=== PATIENT | female | born 1960 | race Caucasian/White ===

== ENCOUNTER 2023-07-07 13:24 | Emergency (ER) | payer MEDICARE, SELFPAY ==
--- NOTE | ~2023-07-07 | XR_ITS ---
EXAMINATION: XR abdomen obstructive series DATE: 07/07/2023 14:01 INDICATION: Constipation TECHNIQUE: Upright and supine views of the abdomen were obtained. COMPARISON: None. FINDINGS: A moderate volume of colonic stool is present. The bowel gas pattern is normal. There is a calcified granuloma of the right lung base. IMPRESSION: 1. Constipation. Reviewed, dictated and finalized at location L. IMPRESSION: 1. Constipation.
--- NOTE | ~2023-07-07 | CT_ITS ---
EXAMINATION: CT abdomen pelvis wo con DATE: 07/07/2023 15:19 INDICATION: ALL OVER ABDOMEN PAIN/CONSTIPATION TECHNIQUE: Computed tomography (CT) of the abdomen and pelvis was performed without intravenous contr ast. Automated exposure control and iterative reconstruction technique were employed. The dose-length product was 369.59 mGy-cm. COMPARISON: X-ray abdomen, same date. FINDINGS: Lower thorax: Calcified right lower lobe granuloma. Bilateral scar. Emphysematous change. Coronary ar ryan calcification. Moderate hiatal hernia. Liver: Normal. Biliary/Gallbladder: Gallbladder is normal. No bile duct dilation. Pancreas: No mass or duct dilation. Spleen: Granulomatous calcifications. Adrenals:Left adrenal adenoma. Kidneys: Punctate nonobstructing bilateral calculi. No hydronephrosis. No suspicious mass. GI tract: No small or large bowel dilation. Colonic diverticulosis. 5.9 x 6.2 x 6.0 cm collection adj acent to and in direct communication with the proximal sigmoid, containing gas and fecal material, wi th surrounding wall thickening and inflammatory change. Appendix not visualized. Mesentery/Peritoneum: No mass or free air. Trace free pelvic fluid. Retroperitoneum: No mass. Atherosclerotic abdominal aortic and/or arterial calcifications. Pelvis: Partially distended urinary bladder. Surgically absent uterus. Soft Tissues: Soft tissues and body wall unremarkable. Bones: No acute osseous finding. Right obturator ring fractures. 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 Trace free pelvic fl uid. No pneumoperitoneum. Recommend surgical consultation. Reviewed, dictated and finalized at location K. 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 Trace free pelvic fluid. No pneumoperitoneum. Recommend surgical consultation .
[2023-07-07 13:25] VITALS: BP 139/99; PULSE 87; RESP 20; TEMP 36.4; O2SAT 98
--- NOTE | 2023-07-07 13:28 | ECG_ITS ---
Measurements Intervals [place] Rate: 97 P: 83 AR: 126 QRS: 84 QRSD: 87 T: 78 QT: 331 QTc: 422 Interpretive Statements SINUS RHYTHM RSR' IN V1 OR V2, PROBABLY NORMAL VARIANT BASELINE ARTIFACT- I, III, AVR, AVL, AVF, V1-V6 NORMAL ECG NO PREVIOUS ECG AVAILABLE FOR COMPARISON Electronically Signed On 07-07-2023 14:10:50 CDT by Emile Dean D.O.
[2023-07-07 13:49] LABS: Basophils Absolute Auto 0.03 K/mm3 (0.00-0.10); Basophils Percent Auto 0.2 % (0.0-1.0); Eosinophils Absolute Auto 0.01 K/mm3 (0.02-0.50); Eosinophils Percent Auto 0.1 % (1.0-6.0); Hematocrit 40.7 % (35.0-49.0); Hemoglobin 13.5 g/dL (12.0-15.0); Immature Granulocyte Absolute 0.08 K/mm3 (0.00-0.00); Immature Granulocyte Percent A 0.5 % (0.0-0.0); Lymphocytes Absolute Auto 2.26 K/mm3 (1.10-4.50); Lymphocytes Percent Auto 14.4 % (18.0-42.0); Mean Corpuscular HGB Conc 33.2 g/dL (32.0-36.0); Mean Corpuscular Hemoglobin 31.6 pg (27.0-31.0); Mean Corpuscular Volume 95.3 fL (78.0-102.0); Mean Platelet Volume 9.8 fl (9.2-11.8); Monocytes Absolute Auto 1.84 K/mm3 (0.10-0.90); Monocytes Percent Auto 11.7 % (2.0-11.0); Neutrophils Absolute Auto 11.5 K/mm3 (1.7-7.2); Neutrophils Percent Auto 73.1 % (50.0-70.0); Platelet Count Result 273 K/mm3 (150-420); Red Blood Count 4.27 M/mm3 (4.20-5.40); Red Cell Distribution Width 13.1 % (11.6-14.4); White Blood Count 15.7 K/mm3 (4.8-10.8)
[2023-07-07 14:04] LABS: INR 1.1; Partial Thromboplastin Time 33.5 SEC (23.90-30.70); Prothrombin Time 11.5 Seconds (9.50-12.10)
[2023-07-07 14:08] LABS: Alanine Aminotransferase 47 U/L (14-59); Alkaline Phosphatase 149 U/L (46-116); Anion Gap 14 mmol/L (8-16); Aspartate Amino Transferase 23 U/L (15-37); Bilirubin,Total 0.9 mg/dL (0.00-1.00); Blood Urea Nitrogen 13 mg/dL (7-18); Calcium 9.5 mg/dL (8.5-10.1); Carbon Dioxide 22 mmol/L (21-32); Chloride 99 mmol/L (98-108); Estimated CRCL calculation 53 ml/min; Estimated Glomerular Filt Rate > 60; Glucose 153 mg/dL (70-99); Lactic Acid Reflex 1.8 mmol/L (0.4-2.0); Lipase 79 U/L (16-77); Osmolality Calculated 283 mOsm/kg (285-295); Potassium 3.7 mmol/L (3.5-5.1); Sodium 135 mmol/L (136-145); Total Protein 7.6 g/dL (6.4-8.2); Troponin I 4.4 ng/L (0.00-60.4)
--- NOTE | 2023-07-07 14:10 | ED.ABDPAIN ---
HPI - Abdominal Pain General Chief Complaint: Abdominal Pain Stated Complaint: abdominal pain Time Seen by Provider: 07/07/23 13:25 Source: patient Mode of arrival: ambulatory Limitations: no limitations History of Present Illness HPI narrative: patient is a 63-year-old female with left lower quadrant abdominal pain since the last 2 days. She has been constipated for 1 week. MD elicited complaint: abdominal pain Pertinent past history: constipation Onset (ago): week(s) (1) Pain Consistency: constant Location: LLQ Severity: moderate Pain scale (0-10): 6 Quality: sharp Radiation: none Migration to: no migration Exacerbating factors: nothing Relieving factors: nothing Associated symptoms: denies other symptoms Related Data Home Medications Medication Instructions Recorded Confirmed albuterol sulfate 90 mcg/actuation 2 puff inhalation BID 07/07/23 07/07/23 aerosol inhaler amlodipine 5 mg tablet 5 mg PO DAILY 07/07/23 07/07/23 clonazepam 0.5 mg tablet 0.5 mg PO BID 07/07/23 07/07/23 pravastatin 80 mg tablet 80 mg PO DAILY 07/07/23 07/07/23 trazodone 100 mg tablet 100 mg PO QHS 07/07/23 07/07/23 Allergies Allergy/AdvReac Type Severity Reaction Status Date / Time Sulfonamides Allergy Intermediate Rash Uncoded 07/07/23 13:49 Review of Systems Review of Systems: All systems reviewed & are unremarkable except as noted in HPI and below Constitutional: Constitutional: Reports no additional constitutional complaints Eyes: Eyes: Reports no additional eye complaints ENT: Reports system reviewed and no additional complaints, except as documented Cardiovascular: Cardiovascular: Reports no additional cardiovascular complaints Respiratory: Respiratory: Reports no additional respiratory complaints Gastrointestinal: Gastrointestinal: Reports no additional gastrointestinal complaints Genitourinary: Genitourinary: Reports no additional female genitourinary complaints Musculoskeletal: Musculoskeletal: Reports no additional musculoskeletal complaints Integumentary/Breasts: Skin/Breast: Reports system reviewed and no additional complaints, except as docu Neurologic: Reports system reviewed and no additional complaints, except as documented Psychiatric: Psychiatric: Reports no additional psychiatric complaints Endocrine: Endocrine: Reports no additional endocrine complaints Hematologic/Lymphatic: Hematologic/Lymphatic: Reports no additional hematologic/lymphatic complaints Allergic/Immunologic: Allergic/Immunologic: Reports no additional allergic/immunologic complaints [facility] Social History Social History Smoking status: Current every day smoker Exam Const: General: healthy appearing and alert; No no acute distress ( Pain associated discomfort) Nutritional Appearance: well nourished Orientation/consciousness: patient oriented x3 Limitations: no limitations HENMT: Head: normal to inspection Ears: external ears normal Face/Nose/Sinus: Normal external nose present Neck: Neck: normal visual inspection Chest: Chest palpation & inspection: normal inspection of the chest Resp: Effort & Inspection: normal respiratory effort Auscultation: clear to auscultation bilaterally Cardio: Rate: regular rate Rhythm: regular rhythm Heart sounds: no murmurs GI: Inspection: non-distended GI Palp: Yes Soft to palpation, Yes Tenderness to palpation present (GI) ( left lower quadrant), Yes Guarding due to palpation present (GI) and No Rigid due to palpation Auscultation: normal bowel sounds : General: Yes bladder normal to palpation Back/Spine/Pelvis: Back: no CVA tenderness Skin: General skin exam: normal color Rashes: no rashes Wounds: no wounds Neuro: General: patient oriented x3 Cranial nerves: Yes Nystagmus not present Speech: normal speech Gait exam (Neuro): Normal gait present Extrem: General: normal to inspection Psych: Mental Status: mental sta
[2023-07-07 14:30] VITALS: BP 132/71; PULSE 75; RESP 18; TEMP 36.3; O2SAT 97
[2023-07-07 16:00] VITALS: BP 132/78; PULSE 66; RESP 16; TEMP 36.6; O2SAT 99
[2023-07-07] MEDS: PIPERACILLN/TAZ 3.375GM/NS50ML 3.375 GM/50 ML BAG IVPB (16:36)
[2023-07-07 17:30] VITALS: BP 141/74; PULSE 79; RESP 18; TEMP 36.7; O2SAT 100
[2023-07-07 19:00] VITALS: BP 132/90; PULSE 88; RESP 20; TEMP 36.6; O2SAT 98
[2023-07-07] MEDS: MORPHINE SULFATE (*CRX) 2 MG/ML INJ IV PUSH (19:57)
[2023-07-07 20:20] VITALS: BP 130/90; PULSE 89; RESP 20; TEMP 36.8; O2SAT 98
== END 2023-07-07 20:20 | disposition home or self-care (01) ==
PROVIDERS: Emergency Provider Emergency Medicine; PCP Family Medicine
DX: K63.1 Perforation of intestine (nontraumatic) (principal); F17.200 Nicotine dependence, unspecified, uncomplicated; Z79.899 Other long term (current) drug therapy
CPT/HCPCS: 36415; 74019; 74176; 80053; 83605; 83690; 84484; 85025; 85610; 85730; 93005; 96365; 96375; 99284; J2270; J2543

== ENCOUNTER 2023-07-07 23:27 | Inpatient (IN) | payer MEDICARE, SELFPAY ==
--- NOTE | ~2023-07-07 | XR_ITS ---
EXAMINATION: XR chest 1V portable DATE: 07/10/2023 11:25 INDICATION: Shortness of breath. TECHNIQUE: A single frontal view of the chest was obtained. COMPARISON: Chest 2 views 02/16/2009, CT abdomen and pelvis 07/07/2023 FINDINGS: There are lucencies in the lungs, consistent with emphysema. There is mild atelectasis at t he lung bases. No pleural effusion or pneumothorax. The heart size is normal. IMPRESSION: 1. Mild atelectasis at the lung bases. 2. Emphysema. Reviewed, dictated and finalized at location A.
--- NOTE | ~2023-07-07 | XR_ITS ---
EXAM: XR_KUBGTUBINS_CR DATE: 07/14/2023 20:35 HISTORY: NG Tube placement . COMPARISON: Chest, same date. FINDINGS: Possible small bilateral effusions and bibasilar atelectasis. Central line, terminating in the distal SVC. NG tube has been advanced, tip and side port project over the stomach. Multiple loop s of dilated small bowel. Surgical skin aleida over the midline. IMPRESSION: NG tube, in good position. Small bowel ileus versus obstruction. Reviewed, dictated and finalized at location K.
--- NOTE | ~2023-07-07 | XR_ITS ---
Portable chest x-ray Comparison: 07/15/2023 Clinical History: Respiratory failure Findings: Endotracheal tube, NG tube, and right-sided PICC line are in satisfactory positions. There is hazy, patchy airspace disease the left lung base, with possible minimal prominent the right lung base. Cardiomediastinal silhouette is stable. Bones and soft tissues are unremarkable. Impression: Support tubes, as above. Patchy left basilar airspace disease with probable minimal involvement of the right lung base. Correl ate for pulmonary edema/atelectasis versus pneumonia. Reviewed, dictated and finalized at location . Impression: Support tubes, as above. Patchy left basilar airspace disease with probable minimal involvement of the r ight lung base. Correlate for pulmonary edema/atelectasis versus pneumonia.
--- NOTE | ~2023-07-07 | XR_ITS ---
Portable chest x-ray Comparison: 07/14/2023 Clinical History: Respiratory failure Findings: NG tube and right-sided Mediport are in place. There is mild bibasilar pulmonary edema/ate lectasis. Cardiomediastinal silhouette is stable. Bones and soft tissues are unremarkable. Impression: Minimal bibasilar pulmonary edema/atelectasis. Support tubes, as above. Reviewed, dictated and finalized at location . Impression: Minimal bibasilar pulmonary edema/atelectasis. Support tubes, as above.
--- NOTE | ~2023-07-07 | XR_ITS ---
Portable chest x-ray Comparison: 07/16/2023 Clinical History: Respiratory failure Findings: Endotracheal tube, NG tube, and right-sided PICC line are in satisfactory positions. There is hazy and interstitial bibasilar pulmonary disease, left worse than right. Cardiomediastinal silh ouette is stable. Bones and soft tissues are unremarkable. Impression: Bibasilar hazy and interstitial pulmonary disease, left worse than right. Correlate for pulmonary nesha ma/atelectasis, pneumonia, and/or chronic interstitial disease. Support tubes, as above. Reviewed, dictated and finalized at location . Impression: Bibasilar hazy and interstitial pulmonary disease, left worse than right. Corre late for pulmonary edema/atelectasis, pneumonia, and/or chronic interstitial di sease. Support tubes, as above.
--- NOTE | ~2023-07-07 | XR_ITS ---
EXAMINATION: XR chest ET placement INDICATION: Endotracheal tube placement TECHNIQUE: Portable AP chest at 1415 hours COMPARISON: 0507 hours FINDINGS: An endotracheal tube has been inserted which ends 5.5 cm above the mi. The nasogastric tube is followed as far as the stomach. Its tip is beyond the inferior margin of the radiograph. A ri ght upper extremity PICC ends with its tip in the distal superior vena cava. Bibasilar airspace opaci ties persist with improvement on the right. No definite pleural effusion or pneumothorax. IMPRESSION: 1. Endotracheal tube inserted ending 5.5 cm above the mi. 2. Bibasilar airspace opacities with improvement on the right, consistent with atelectasis versus pne umonia versus pulmonary edema. Reviewed, dictated and finalized at location F. IMPRESSION: 1. Endotracheal tube inserted ending 5.5 cm above the mi. 2. Bibasilar airspace opacities with improvement on the right, consistent with atelectasis versus pneumonia versus pulmonary edema.
--- NOTE | ~2023-07-07 | XR_ITS ---
Portable chest x-ray Comparison: 07/21/2023 Clinical History: Cough Findings: Right-sided PICC line in place. There are probable small pleural effusions with mild bibas ilar pulmonary edema/atelectasis. Cardiomediastinal silhouette is stable. Bones and soft tissues are unremarkable. Impression: Small bilateral pleural effusions with mild bibasilar pulmonary edema/atelectasis. Right-sided PICC line in place. Reviewed, dictated and finalized at location . Impression: Small bilateral pleural effusions with mild bibasilar pulmonary edema/atelectas is. Right-sided PICC line in place.
--- NOTE | ~2023-07-07 | CT_ITS ---
EXAMINATION: CTA chest PE abdomen pel DATE: 07/15/2023 16:56 INDICATION: Respiratory failure, sepsis TECHNIQUE: Computed tomography angiography (CTA) of the chest was performed with 100 mL Omnipaque-350 intravenous contrast timed to evaluate the pulmonary arteries. Subsequent postcontrast images of the abdomen and pelvis are obtained. Coronal maximum intensity projection 3D-reconstructions were create d by the technologist. The dose-length product (DLP) was 1204.84 mGy-cm. Automated exposure control a nd iterative reconstruction technique were employed. COMPARISON: 07/12/2023 FINDINGS: CTA CHEST: The pulmonary arteries are well-opacified. No pulmonary embolism is identified. The endotr acheal tube is approximately 4.6 cm above the mi. A right upper extremity PICC ends with its tip in the distal superior vena cava. The heart size is normal. There are airspace opacities of the lower lobes, left greater than right, and lingula. There is mild right hilar lymphadenopathy, likely react alesia. There is moderate to severe emphysema. No pleural effusion or pneumothorax. There is mild thorac ic spondylosis. ABDOMEN/PELVIS CT: There is a moderate-sized sliding hiatal hernia. The nasogastric tube is in the st omach. There is mild distention of the gallbladder, likely due to fasting state. Punctate calcificati ons in an otherwise normal spleen likely represent healed granulomatous disease. The liver, pancreas, and right adrenal gland are normal. There is an 8 mm mass of the left adrenal gland. There is a 6 mm cyst of the right kidney. The left kidney is unremarkable. The bladder is decompressed by Faulkner cath eter. There is mild lumbar spondylosis. There are changes of interval sigmoid resection and left lower quadrant diverting colostomy placement . There is a moderate volume of persistent intraperitoneal fluid in the bilateral pericolic gutters a nd in the pelvis. The largest pocket of fluid in the pelvis measures 8.5 x 4.2 cm and appears to be r im-enhancing. IMPRESSION: 1. No pulmonary embolus identified. 2. Airspace opacities of the lower lobes and lingula, left greater than right, consistent with pneumo jonathan and atelectasis. 3. Persistent intraperitoneal fluid in the bilateral pericolic gutters and pelvis, postoperative vers us abscess. Reviewed, dictated and finalized at location F. IMPRESSION: 1. No pulmonary embolus identified. 2. Airspace opacities of the lower lobes and lingula, left greater than right, consistent with pneumonia and atelectasis. 3. Persistent intraperitoneal fluid in the bilateral pericolic gutters and pelv is, postoperative versus abscess.
--- NOTE | ~2023-07-07 | US_ITS ---
EXAMINATION: US venous doppler [facility] DATE: 07/15/2023 16:37 INDICATION: Acute pulmonary emboli. TECHNIQUE: Grayscale ultrasound images without and with compression and Doppler ultrasound images of the bilateral lower extremity veins were obtained. COMPARISON: None. FINDINGS: The right common femoral vein and profunda femoral vein are not visualized due to the patient positio kayce. The visualized portions of right femoral vein, popliteal vein, peroneal veins, posterior tibial veins, and greater saphenous vein are patent. The left common femoral vein and profunda femoral vein are not visualized due to the patient position ing. The visualized portions of left femoral vein, popliteal vein, peroneal veins, posterior tibial v eins, and greater saphenous vein are patent. IMPRESSION: 1. No deep venous thrombosis. Reviewed, dictated and finalized at location A.
--- NOTE | ~2023-07-07 | CT_ITS ---
EXAMINATION: CTA chest PE protocol DATE: 07/10/2023 13:55 INDICATION: Hypoxia. TECHNIQUE: Computed tomography angiography (CTA) of the chest was performed with 100 mL Omnipaque-350 intravenous contrast timed to evaluate the pulmonary arteries. Coronal maximum intensity projection 3D-reconstructions were created by the technologist. Automated exposure control and iterative reconst ruction technique were employed. The dose-length product was 239.15 mGy-cm. COMPARISON: CT abdomen and pelvis 07/07/2023 FINDINGS: There is mild scarring at the lung apices. There is severe emphysema. A calcified right niraj g nodule and calcified right hilar lymph nodes are consistent with old granulomatous disease. There i s mild atelectasis bilaterally. There is a small left pleural effusion. There is moderate atelectasis in left lower lobe. The heart size is normal. There are coronary artery calcifications. No pericardi al effusion. There is no pulmonary embolus. Calcifications in the spleen are consistent with old gran ulomatous disease. There is thickening of the adrenal glands. There is a 16 mm mass in left adrenal g land measuring soft tissue attenuation. There is a moderate-sized sliding hiatal hernia. There is muc ous in the trachea and bronchi. There is moderate cervical spondylosis and mild thoracic spondylosis. There is mild chronic anterior wedging of T11 vertebral body. IMPRESSION: 1. No pulmonary embolus. 2. Small left pleural effusion, new from 07/07/23. Left lower lobe atelectasis is out of proportion to the size of the pleural effusion and may be secondary to mucous plugging. 3. Severe emphysema. 4. 16 mm left adrenal mass. In the absence of known malignancy, this finding is likely an adenoma. 5. Moderate-sized sliding hiatal hernia. Reviewed, dictated and finalized at location A.
--- NOTE | ~2023-07-07 | XR_ITS ---
Portable chest x-ray Comparison: 07/20/2023 Clinical History: Respiratory failure Findings: Endotracheal tube, NG tube, and right-sided central venous line are in satisfactory positi ons. Small bilateral pleural effusions are present with bibasilar pulmonary edema/atelectasis. Cardi omediastinal silhouette is stable. Bones and soft tissues are unremarkable. Impression: Support tubes, as above. Small bilateral pleural effusions with mild bibasilar pulmonary edema/atelectasis. Reviewed, dictated and finalized at location M. Impression: Support tubes, as above. Small bilateral pleural effusions with mild bibasilar pulmonary edema/atelectas is.
--- NOTE | ~2023-07-07 | CT_ITS ---
EXAMINATION: CT abdomen pelvis wo con DATE: 07/12/2023 11:24 INDICATION: Abdominal pain and distension TECHNIQUE: Computed tomography (CT) of the abdomen and pelvis was performed without intravenous contr ast. Automated exposure control and iterative reconstruction technique were employed. The dose-length product was 300.16 mGy-cm. COMPARISON: None. FINDINGS: Lower thorax: New left lower lobe and subsegmental basilar right lower lobe consolidation. New small left pleural effusion. Coronary artery calcification. Liver: Normal. Biliary/Gallbladder: Normal-appearing gallbladder with sludge. No bile duct dilation. Pancreas: No mass or duct dilation. Spleen: Granulomas calcifications. Adrenals:Right adrenal adenoma. Kidneys: Punctate bilateral nephrolithiasis. No suspicious mass, obstructing stone, or hydronephrosis . GI tract: Altered morphology of the inflammatory sigmoid diverticulum, which is slightly smaller than in the prior study, with increased proportion of fluid and gas content, decreased fecal content. Inc reased diffuse large and small bowel dilation. Appendix not visualized Mesentery/Peritoneum: New small moderate volume pneumoperitoneum. New moderate volume complex periton eal fluid collection. Free feculent appearing material in the deep pelvis. Retroperitoneum: No mass. Pelvis: The bladder is decompressed. Absent uterus. Soft Tissues: Soft tissues and body wall unremarkable. Bones: No acute osseous finding. Old right obturator ring fractures. IMPRESSION: Interval rupture of the inflammatory sigmoid diverticulum. New moderate pneumoperitoneum and complex ascites, containing feculent material. Diffuse small bowel and large bowel ileus. Obstruction not excluded. New left lower lobe and right basilar atelectasis/consolidation. New small left pleural effusion. Results reported telephonically to Jennyfer Holland RN by Dr. Haddad at 3:32 PM on 07/12/2023. Reviewed, dictated and finalized at location K. IMPRESSION: Interval rupture of the inflammatory sigmoid diverticulum. New moderate pneumop eritoneum and complex ascites, containing feculent material. Diffuse small bowel and large bowel ileus. Obstruction not excluded. New left lower lobe and right basilar atelectasis/consolidation. New small left pleural effusion. Results reported telephonically to Jennyfer Holland RN by Dr. Haddad at 3:32 PM on 07/12/2023.
--- NOTE | ~2023-07-07 | XR_ITS ---
Portable chest x-ray Comparison: 07/19/2023 Clinical History: Respiratory failure Findings: Endotracheal tube, NG tube, and right-sided PICC line are in place. There is bibasilar air space disease. Cardiomediastinal silhouette is stable. Bones and soft tissues are unremarkable. Impression: Bibasilar pulmonary edema/atelectasis, versus possibly pneumonia. Correlate clinically. Support tubes, as above. Reviewed, dictated and finalized at location M. Impression: Bibasilar pulmonary edema/atelectasis, versus possibly pneumonia. Correlate cli nically. Support tubes, as above.
--- NOTE | ~2023-07-07 | XR_ITS ---
Portable chest x-ray Comparison: 07/10/2023 Clinical History: Shortness of breath Findings: NG tube is in satisfactory position. There are probable minimal pleural effusions with mil d bibasilar atelectatic change. Cardiomediastinal silhouette is stable. Bones and soft tissues are u nremarkable. Impression: Probable minimal pleural effusions with mild bibasilar atelectasis. NG tube in place. Reviewed, dictated and finalized at location M. Impression: Probable minimal pleural effusions with mild bibasilar atelectasis. NG tube in place.
--- NOTE | ~2023-07-07 | XR_ITS ---
XR chest 1V portable DATE: 07/18/2023 05:43 INDICATION: Respiratory failure TECHNIQUE: Portable AP chest on 07/18/2023 at 0517 hours COMPARISON: portable AP chest at 0521 hours FINDINGS: ET and NG tubes in satisfactory position. Right upper extremity PIC catheter tip overlies s uperior vena cava. Bilateral lower lung infiltrate and/atelectasis, stable on the left, increased on the right since 07/03. No pleural effusion or pneumothorax is evident. IMPRESSION: Bilateral lower lung infiltrate and/atelectasis, increased on the right since 07/17/2023 Reviewed, dictated and finalized at location A. IMPRESSION: Bilateral lower lung infiltrate and/atelectasis, increased on the r ight since 07/17/2023
--- NOTE | ~2023-07-07 | XR_ITS ---
XR chest 1V portable DATE: 07/19/2023 06:15 INDICATION: Respiratory failure TECHNIQUE: Portable AP chest on 07/19/2023 at 0537 hours COMPARISON: 07/18/2020 portable AP chest at 0517 hours FINDINGS: ET and NG tubes in satisfactory position. Right upper extremity PIC catheter tip overlies t he superior vena cava. There are bilateral lower lobe infiltrates and/atelectasis, left greater than right, relatively stabl e since 07/18/2023. The costophrenic angles are mildly blunted suggesting small pleural effusions. No pneumothorax. IMPRESSION: Persistent bilateral lower lobe infiltrate and/or atelectasis and possible small pleural effusions Reviewed, dictated and finalized at location A. IMPRESSION: Persistent bilateral lower lobe infiltrate and/or atelectasis and p ossible small pleural effusions
--- NOTE | 2023-07-07 21:31 | ADMGEN ---
This patient, Norma Steiner, was admitted to [facility] Surg Room 322-02. Patient/family oriented to hospital policies and general routines including ID bracelet, bed and alarms, visiting hours, pain management, procedures, bathroom and other care routines, personal items, smoking policy, room service/diet, and visiting hours. Information on how to activate the Rapid Response Team has been discussed. Patient/Family are encouraged to report perceived risks to care and to ask questions if they do not understand what they are told or what they should do.
[2023-07-07 22:00] VITALS: BP 133/90; PULSE 107; RESP 18; TEMP 36.8; O2SAT 94
--- NOTE | 2023-07-07 23:13 | PM.IMHP ---
H&P: HPI History of Present Illness Date/Time: 07/07/23 23:13 Chief Complaint: Lower Abdominal Pain and Constipation Narrative: 63 y/o F with history of HTN, HLD, and COPD presents here with lower abdominal pain and constipation. Patient reports LLQ pain for the past 3 days without nausea and vomiting. Patient's last BM was 1 week ago and she described it as small and hard. She endorses one episode of diaphoresis today during workup at [facility]. Otherwise denies fever, chills, body aches. She tried Tylenol Extra Strength for the pain with some resolution and Metamucil for the constipation without success. No prior episodes or similar presentations. Review of Systems Review of Systems: All systems reviewed & are unremarkable except as noted in HPI and below PMFSH Past Medical History Medical History (Updated 07/07/23 @ 23:24 by Mireille Santiago APRN) COPD (chronic obstructive pulmonary disease) HLD (hyperlipidemia) HTN (hypertension) Surgical History Surgical History (Updated 07/07/23 @ 23:24 by Mireille Santiago APRN) History of x2 History of total hysterectomy Social History Social History Smoking status: Current every day smoker Meds Home Medications and Allergies Home Medications Medication Instructions Recorded Confirmed Type Adult One Daily Multivitamin 1 tablet PO DAILY 07/07/23 07/07/23 History albuterol sulfate 90 mcg/actuation 2 puff inhalation BID PRN 07/07/23 07/07/23 History aerosol inhaler Shortness Of Breath amlodipine 5 mg tablet 5 mg PO DAILY 07/07/23 07/07/23 History clonazepam 0.5 mg tablet 0.5 mg PO BID PRN Anxiety 07/07/23 07/07/23 History loratadine 10 mg tablet (Claritin) 10 mg PO DAILY 07/07/23 07/07/23 History pravastatin 80 mg tablet 80 mg PO HS 07/07/23 07/07/23 History trazodone 100 mg tablet 100 mg PO QHS 07/07/23 07/07/23 History Allergies Allergy/AdvReac Type Severity Reaction Status Date / Time Sulfonamides Allergy Intermediate Rash Uncoded 07/07/23 13:49 Vital Signs Vital Signs - 24 hr 07/07/23 22:00 Temperature 98.2 F Pulse Rate 107 H Respiratory Rate 18 Blood Pressure 133/90 Pulse Oximetry 94 Exam Const: General: comfortable and no acute distress HENMT: Mouth: Yes dry mucous membranes Eyes: General: appearance normal, both eyes and all related structures Sclera: sclerae normal Pupils: Equal, round and reactive pupils present EOM: EOMs intact bilaterally Resp: Effort & Inspection: normal respiratory effort Auscultation: clear to auscultation bilaterally Cardio: Rate: regular rate Rhythm: regular rhythm GI: GI Palp: Yes Soft to palpation, Yes Tenderness to palpation present (GI) and Yes Guarding due to palpation present (GI) Auscultation: abnormal bowel sounds Other: Tender to palpation in RLQ and LLQ. +Guarding of lower abdomen. Hypoactive BS in all four quadrants. No suprapubic tenderness or epigastric tenderness. Skin: General skin exam: normal color and no rashes or lesions noted Wounds: no wounds Neuro: Speech: normal speech Motor exam (neuro): 5/5 motor strength present throughout Sensory Exam: normal sensation Extrem: General: normal to inspection Psych: Mental Status: mental status grossly normal Affect: normal affect Assessment and Plan Assessment and plan (1) Colonic diverticulum: Code(s): K57.30 - Diverticulosis of large intestine without perforation or abscess without bleeding Status: Acute Assessment and Plan: LLQ pain for the past 3 days, now having RLQ pain. 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 Trace free pelvic fluid. No pneumoperitoneum. Recommend surgical consultation. -Surgery Consult: Danielle SHANNON agreed to see patient -NPO at midnight for possible procedure -TYL and morphine ordered PRN for pain -Zofran PRN ordered for nausea -monitor daily labs
[2023-07-08] VITALS (9 sets, daily range): BP systolic 125–144; BP diastolic 67–81; PULSE 70–121; RESP 16–20; TEMP 36.1–36.9; O2SAT 88–94; BMI 22.8
[2023-07-08] MEDS: traZODone HCL 50 MG TABLET 100 MG PO ×2 (00:36→21:13)
[2023-07-08] MEDS: PRAVASTATIN SODIUM 20 MG TABLET 80 MG PO ×2 (00:36→21:13)
[2023-07-08] MEDS: SODIUM CHLORIDE 0.9% IV 1,000 ML 100 ML IV CONT ×2 (00:36→12:19)
[2023-07-08] MEDS: ACETAMINOPHEN 325 MG TABLET 650 MG PO (06:11)
[2023-07-08 06:48] LABS: Hematocrit 39.8 % (37.0-47.0); Mean Corpuscular HGB Conc 32.7 g/dl (32-36); Mean Corpuscular Hemoglobin 30.4 pg (26-34); Mean Corpuscular Volume 93.2 fl (80-100); Mean Platelet Volume 9.7 fl (7.4-10.4); Platelet Count Result 279 k/mm3 (150-375); Red Blood Count 4.27 M/mm3 (4.2-5.4); Red Cell Distribution Width 13.2 % (11.5-14.5); White Blood Count 7.4 K/mm3 (4.5-10.0)
[2023-07-08 07:04] LABS: Anion Gap 16 mmol/L (8-16); Blood Urea Nitrogen 16 mg/dL (7-17); Calcium 8.8 mg/dL (8.4-10.2); Carbon Dioxide 20 mmol/L (22-30); Chloride 101 mmol/L (98-107); Estimated CRCL calculation 66 ml/min; Estimated Glomerular Filt Rate > 60; Glucose 161 mg/dL (65-110); Potassium 3.7 mmol/L (3.4-5.0); Sodium 137 mmol/L (137-145)
[2023-07-08 07:24] LABS: Band Neutrophils Percent 57 % (0-6); Lymphocytes Absolute Manual 1.11 K/mm3 (1.1-4.5); Metamyelocytes Percent 2 %; Monocytes Absolute Manual 0.51 K/mm3 (0.1-0.90); Monocytes Percent Manual 7 % (3-9); Neutrophils Absolute Manual 5.62 K/mm3 (1.7-7.2); Neutrophils Percent Manual 19 % (46-73); Total Cells Counted 100
[2023-07-08 07:25] LABS: Atypical Lymphocytes Present; Burr Cells 1+ (NORMAL); Platelet Estimate Adequate (Adequate); Schistocytes None Seen (NORMAL)
[2023-07-08 07:26] LABS: Toxic Granulation Present (NORMAL)
--- NOTE | 2023-07-08 11:48 | PM.CNGS ---
Assessment and Plan Assessment and plan (1) Diverticulitis large intestine: Code(s): K57.32 - Diverticulitis of large intestine without perforation or abscess without bleeding Status: Acute Assessment and Plan: CT showing either a very large sigmoid diverticulum with inflammation that is filled with gas and stool or chronic contained perforation. Discussed CT findings with the patient. No large volume of free intraperitoneal air. She is very tender on exam, but no diffuse peritoneal signs. Will start broad-spectrum IV antibiotics. Continue bowel rest, IV fluids, and analgesics as needed. Discussed with the patient that we will treat this initially conservatively with IV antibiotics and see how she progresses. If she does not improve with conservative management, then she could require surgery in the acute setting. Will continue to follow with labs and serial abdominal exams. (2) COPD (chronic obstructive pulmonary disease): Code(s): J44.9 - Chronic obstructive pulmonary disease, unspecified Status: Acute (3) HTN (hypertension): Code(s): I10 - Essential (primary) hypertension Status: Acute (4) Tobacco use: Code(s): Z72.0 - Tobacco use Status: Acute Plan I have discussed the patient's case and plan of care with Dr. Reynolds. History of Present Illness Consult details Consult date: 07/08/23 Reason for consult: other (Sigmoid diverticulitis with possible perforation) Requesting physician: Mireille Santiago APRN Narrative: This is a 63-year-old smoker with a history of COPD and hypertension, who presented to [place] ER yesterday with complaints of LLQ abdominal pain x 2-3 days. She reports having a sudden onset a sharp LLQ abdominal pain over the weekend. She thought she was constipated, which is a chronic issue for her, and monitored the pain. Her pain was severe and she had no alleviating factors. She reports associated fatigue, nausea, and chills. No vomiting. She is unsure of her last bowel movement but states it was at least sometime last week. In the ER, labs significant for a white blood cell count of 15,700. CT abdomen and pelvis showed a giant inflamed sigmoid diverticulum or chronic contained colonic perforation. She was transferred and directly admitted to [facility]. Our service has been consulted for the CT findings. She is now seen on the medical floor. She reports some improvement in her LLQ abdominal pain. She is no longer feeling nauseous. She is thirsty but has had a poor appetite over the past few days. She denies a history of diverticulitis. She reports having one colonoscopy with benign polypectomy about 10 years ago. No recent colonoscopy. Previous abdominal surgeries include deliveries and a total abdominal hysterectomy. Review of Systems Review of Systems: All systems reviewed & are unremarkable except as noted in HPI and below Constitutional: Constitutional: Reports no additional constitutional complaints, Reports chills, Reports fatigue, Denies fever(s) and Reports poor appetite Eyes: Eyes: Reports no additional eye complaints ENT: Reports system reviewed and no additional complaints, except as documented and Denies dizziness Cardiovascular: Cardiovascular: Reports no additional cardiovascular complaints, Denies chest pain and Denies leg edema Respiratory: Respiratory: Reports no additional respiratory complaints, Denies cough and Denies dyspnea Gastrointestinal: Gastrointestinal: Reports as per HPI, Reports no additional gastrointestinal complaints, Reports abdominal pain, Denies melena, Denies hematochezia, Reports constipation, Reports nausea and Denies vomiting Genitourinary: Genitourinary: Reports no additional female genitourinary complaints Musculoskeletal: Musculoskeletal: Reports no additional musculoskeletal complaints, Denies abnormal gait and Denies joint swelling Integumentary/Breasts: Skin/Breast: Reports system reviewed and no additional
[2023-07-08] MEDS: ALBUTEROL SULFATE (*SP) AEROSOL 1 PUFF 2 PUFF INHALATION (11:51)
[2023-07-08] MEDS: PIPERACILLN/TAZ 3.375GM/NS50ML 3.375 GM/50 ML BAG IVPB ×2 (12:19→17:25)
--- NOTE | 2023-07-08 15:35 | PM.IMPN ---
Progress Note: A&P Assessment and Plan (1) Colonic diverticulum: Code(s): K57.30 - Diverticulosis of large intestine without perforation or abscess without bleeding Status: Acute Assessment and Plan: LLQ pain for the past 3 days, now having RLQ pain. 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 Trace free pelvic fluid. No pneumoperitoneum. Recommend surgical consultation. - conservate management NPO with fluids, iv abx and ice chips today advance diet slowly and dc in 2-3 days time (2) Constipation: Code(s): K59.00 - Constipation, unspecified Status: Acute Assessment and Plan: Last BM 1 week ago and described as hard/small. Metamucil unsuccessful, concern for perforation on CT. -GI consulted -surgery consulted - iv fluids, iv abx, npo bowel rest. (3) Lower abdominal pain: Code(s): R10.30 - Lower abdominal pain, unspecified Status: Acute Plan Chronic Conditions -Allergies: continue home Claritin -Anxiety: continue home Clonazepam -HLD: continue home Pravastatin -HTN: continue home amlodipine. continue to monitor BP. -Insomnia: continue home Trazodone -continue home multivitamin. DVT prop- SCDs Subjective Date/time seen: 07/08/23 15:35 Interval history: 63 y/o F with history of HTN, HLD, and COPD presents here with lower abdominal pain admitted wit colonic diverticulum and constipation seen by surgery team conservate management NPO with fluids, iv abx and ice chips today advance diet slowly and dc in 2-3 days time Review of Systems Review of Systems: Abdominal distension and abdominal pain Objective Data Vital Signs Vital Signs: Vital Signs - 24 hr 07/07/23 22:00 07/08/23 00:00 07/08/23 02:44 Temperature 36.8 C 36.7 C Pulse Rate 107 H 103 H Respiratory Rate 18 16 Blood Pressure 133/90 125/81 Pulse Oximetry 94 90 Oxygen Delivery Room Air Oxygen Flow Rate Fraction of Inspired Oxygen 07/08/23 04:00 07/08/23 08:00 07/08/23 11:52 Temperature 36.5 C 36.3 C L Pulse Rate 116 H 100 115 H Respiratory Rate 20 18 20 Blood Pressure 131/79 135/73 Pulse Oximetry 88 L 90 93 Oxygen Delivery Venturi Mask Oxygen Flow Rate 12 Fraction of Inspired Oxygen 50 09/06/23 11:51 07/08/23 13:27 07/08/23 09:15 Temperature 36.4 C L Pulse Rate 70 117 H Respiratory Rate 18 18 Blood Pressure 135/71 Pulse Oximetry 93 93 93 Oxygen Delivery Venturi Mask Venturi Mask Oxygen Flow Rate 12 12 Fraction of Inspired Oxygen 50 Intake/Output Intake/Output: Intake & Output 07/05/23 07/06/23 07/07/23 07/08/23 23:59 23:59 23:59 23:59 Intake Total 1050 Balance 1050 Meds/Results Medications: Active Medications Generic Name Dose Route Start Last Admin Trade Name Freq PRN Reason Stop Dose Admin Acetaminophen 650 mg 07/07/23 23:29 07/08/23 06:11 Acetaminophen 325 Mg Tablet PO 650 mg Q4H PRN Administration Mild Pain (1-3) or Fever Albuterol 2 puff 07/07/23 23:26 07/08/23 11:51 Albuterol Sulfate (*Sp) Aerosol 1 Puff INHALATION 2 puff BID PRN Administration Shortness Of Breath Amlodipine Besylate 5 mg 07/08/23 09:00 07/08/23 10:51 Amlodipine Besylate 5 Mg Tablet PO Not Given DAILY ERIN Clonazepam 0.5 mg 07/07/23 23:26 Clonazepam (*Crx) 0.5 Mg Tablet PO BID PRN Anxiety Sodium Chloride 1,000 mls @ 100 mls/hr 07/07/23 23:30 07/08/23 12:19 Normal Saline Iv IV CONT 07/08/23 22:30 100 mls/hr .Q10H ERIN Administration Piperacillin/Tazobactam/Dextrose 3.375 gm in 50 mls @ 100 mls/hr 07/08/23 12:00 07/08/23 12:49 Zosyn 3.375 Gm/Ns 50 Ml IVPB Infused Q6HR ERIN Infusion Loratadine 10 mg 07/08/23 09:00 07/08/23 10:51 Loratadine 10 Mg Tablet PO Not Given DAILY ERIN Morphine Sulfate 2 mg 07/07/23 23:29 Morphine Sulfate (*Crx) 2 Mg/Ml Inj IV PUSH Q4H PRN
--- NOTE | 2023-07-08 16:20 | ECG_ITS ---
Measurements Intervals [place] Rate: 108 P: 79 KS: 125 QRS: 48 QRSD: 88 T: 28 QT: 291 QTc: 391 Interpretive Statements SINUS TACHYCARDIA INCOMPLETE RIGHT BUNDLE BRANCH BLOCK BORDERLINE ST-T WAVE ABNORMALITY- ANT/INF LEADS ABNORMAL ECG COMPARED TO ECG 07/07/2023 13:38:38 [address] NOW PRESENT ST-T WAVE ABNORMALITY NOW PRESENT Electronically Signed On 07-08-2023 20:09:26 CDT by Emile Dean D.O.
--- NOTE | 2023-07-08 19:18 | PC.NURSE ---
Pt IV infiltrated in R hand. Pt had new IV placed in L forearm. Pt tolerated placement well. Pt was switched to 12 L vent mask due to decreased O2 saturation. Pt was 83 on NC. Pt has been monitored for any changes in status while here.
[2023-07-09] VITALS (11 sets, daily range): BP systolic 125–142; BP diastolic 78–90; PULSE 95–115; RESP 14–18; TEMP 36–37.2; O2SAT 93–96
[2023-07-09] MEDS: SODIUM CHLORIDE 0.9% IV 1,000 ML 100 ML IV CONT (00:06)
[2023-07-09] MEDS: PIPERACILLN/TAZ 3.375GM/NS50ML 3.375 GM/50 ML BAG IVPB ×5 (00:15→23:58)
[2023-07-09 08:53] LABS: Hematocrit 38.4 % (37.0-47.0); Hemoglobin 12.6 g/dL (12.0-15.0); Mean Corpuscular HGB Conc 32.8 g/dl (32-36); Mean Corpuscular Hemoglobin 31.1 pg (26-34); Mean Corpuscular Volume 94.8 fl (80-100); Platelet Count Result 305 k/mm3 (150-375); Red Blood Count 4.05 M/mm3 (4.2-5.4); Red Cell Distribution Width 13.3 % (11.5-14.5); White Blood Count 12.8 K/mm3 (4.5-10.0)
[2023-07-09] MEDS: amLODIPine BESYLATE 5 MG TABLET PO (08:59)
[2023-07-09 09:06] LABS: Anion Gap 8 mmol/L (8-16); Blood Urea Nitrogen 18 mg/dL (7-17); Calcium 8.9 mg/dL (8.4-10.2); Carbon Dioxide 25 mmol/L (22-30); Chloride 105 mmol/L (98-107); Estimated CRCL calculation 66 ml/min; Estimated Glomerular Filt Rate > 60; Glucose 132 mg/dL (65-110); Potassium 3.4 mmol/L (3.4-5.0); Sodium 138 mmol/L (137-145)
--- NOTE | 2023-07-09 11:50 | PM.PNGS ---
Progress Note: A&P Assessment and Plan (1) Diverticulitis large intestine: Qualifiers: Diverticulitis bleeding: without bleeding Diverticulitis complication: without perforation or abscess Qualified Code(s): K57.32 - Diverticulitis of large intestine without perforation or abscess without bleeding Code(s): K57.32 - Diverticulitis of large intestine without perforation or abscess without bleeding Status: Acute Assessment and Plan: Large diverticulum concerning for ongoing problems or risk of perforation. No signs of peritonitis that would require emergent surgery. Symptoms improving. Will start clear liquids today. Continue close monitoring. (2) Constipation: Code(s): K59.00 - Constipation, unspecified Status: Acute Assessment and Plan: Colace started today with clear liquids. Will consider gentle stimulation as infection continues to resolve. (3) Lower abdominal pain: Code(s): R10.30 - Lower abdominal pain, unspecified Status: Acute (4) Tobacco use: Code(s): Z72.0 - Tobacco use Status: Acute (5) HTN (hypertension): Code(s): I10 - Essential (primary) hypertension Status: Acute (6) COPD (chronic obstructive pulmonary disease): Code(s): J44.9 - Chronic obstructive pulmonary disease, unspecified Status: Acute Subjective Subjective Date/Time Seen: 07/09/23 11:50 Interval history: Pain improved. No fevers. Passing flatus, no BM yet. Exam GI: Inspection: non-distended GI Palp: Yes Soft to palpation, Yes Tenderness to palpation present (GI) (minimal suprapubic), No Guarding due to palpation present (GI) and No Rebound tenderness present Objective Data Vital Signs Vital Signs: Vital Signs - 24 hr 07/08/23 11:52 07/08/23 11:51 07/08/23 13:27 Temperature 36.4 C L Pulse Rate 115 H 70 117 H Respiratory Rate 20 18 18 Blood Pressure 135/71 Pulse Oximetry 93 93 93 Oxygen Delivery Venturi Mask Venturi Mask Oxygen Flow Rate 12 12 Fraction of Inspired Oxygen 50 50 07/08/23 16:00 07/08/23 20:00 07/08/23 20:00 Temperature 36.1 C L 36.9 C Pulse Rate 121 H 108 H 75 Respiratory Rate 20 20 Blood Pressure 131/67 144/72 H Pulse Oximetry 91 94 Oxygen Delivery Oxygen Flow Rate Fraction of Inspired Oxygen 07/09/23 00:00 07/09/23 00:00 07/08/23 20:00 Temperature 37.2 C Pulse Rate 113 H 111 H 111 H Respiratory Rate 18 18 Blood Pressure 135/88 Pulse Oximetry 93 93 Oxygen Delivery Venturi Mask Oxygen Flow Rate 12 Fraction of Inspired Oxygen 50 07/09/23 04:00 07/09/23 04:00 07/09/23 08:00 Temperature 36.0 C L 36.2 C L Pulse Rate 108 H 115 H 110 H Respiratory Rate 18 14 Blood Pressure 137/85 125/81 Pulse Oximetry 93 95 Oxygen Delivery Oxygen Flow Rate Fraction of Inspired Oxygen 07/09/23 09:40 07/09/23 08:25 Temperature Pulse Rate Respiratory Rate Blood Pressure Pulse Oximetry 93 93 Oxygen Delivery High Flow Nasal Cannula High Flow Nasal Cannula Oxygen Flow Rate 6 6 Fraction of Inspired Oxygen Intake/Output Intake/Output: Intake & Output 07/06/23 07/07/23 07/08/23 07/09/23 23:59 23:59 23:59 23:59 Intake Total 2100 100 Balance 2100 100 Meds/Results Medications: Active Medications Generic Name Dose Route Start Last Admin Trade Name Freq PRN Reason Stop Dose Admin Acetaminophen 650 mg 07/07/23 23:29 07/08/23 06:11 Acetaminophen 325 Mg Tablet PO 650 mg Q4H PRN Administration Mild Pain (1-3) or Fever Albuterol 2 puff 07/07/23 23:26 07/08/23 11:51 Albuterol Sulfate (*Sp) Aerosol 1 Puff INHALATION 2 puff BID PRN Administration Shortness Of Breath Amlodipine Besylate 5 mg 07/08/23 09:00 07/09/23 08:59 Amlodipine Besylate 5 Mg Tablet PO 5 mg DAILY ERIN Administration Clonazepam 0.5 mg 07/07/23 23:26 Clonazepam (*Crx) 0.5 Mg Tablet PO BID PRN Anxiety Docusate So
[2023-07-09] MEDS: DOCUSATE SODIUM 100 MG CAPSULE PO ×2 (14:36→20:12)
--- NOTE | 2023-07-09 16:17 | PM.IMPN ---
Progress Note: A&P Assessment and Plan (1) Colonic diverticulum: Code(s): K57.30 - Diverticulosis of large intestine without perforation or abscess without bleeding Status: Acute Assessment and Plan: LLQ pain for the past 3 days, now having RLQ pain. 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 Trace free pelvic fluid. No pneumoperitoneum. General surgery consulted NPO except ice chips Continue IV fluids Diet per General surgery (2) Constipation: Code(s): K59.00 - Constipation, unspecified Status: Acute Assessment and Plan: Last BM 1 week ago and described as hard/small. Metamucil unsuccessful, concern for perforation on CT. -GI consulted -surgery consulted - iv fluids, iv abx, npo bowel rest. (3) Lower abdominal pain: Code(s): R10.30 - Lower abdominal pain, unspecified Status: Acute Plan Chronic Conditions -Allergies: continue home Claritin -Anxiety: continue home Clonazepam -HLD: continue home Pravastatin -HTN: continue home amlodipine. continue to monitor BP. -Insomnia: continue home Trazodone -continue home multivitamin. DVT prop- SCDs Subjective Date/time seen: 07/09/23 16:17 Interval history: 63 y/o F with history of HTN, HLD, and COPD presents here with lower abdominal pain admitted wit colonic diverticulum and constipation seen by surgery team conservative management Remains NPO except ice chips. She had past flat us this morning no bowel movement yet. Reports abdomen is still sore. Review of Systems Review of Systems: All systems reviewed & are unremarkable except as noted in HPI and below Exam Narrative: GENERAL: The patient is well developed, not in acute distress HEENT: Nonicteric sclerae, PERRLA, EOMI. Oropharynx clear. Moist mucous membranes. Conjunctivae appear well perfused. CHEST: Chest wall is nontender. HEART: Regular rate and rhythm without murmur, rubs, or gallops LUNGS: Clear to auscultation bilaterally. no respiratory distress ABDOMEN: Soft, positive bowel sounds, distended, tender lower abdomen, no organomegaly. SKIN: No rash, no excessive bruising, petechiae, or purpura. NEUROLOGIC: Cranial nerves II-XII intact, alert and oriented x 3, no gross motor deficits EXTREMITIES: no edema, cyanosis or clubbing Objective Data Vital Signs Vital Signs: Vital Signs - 24 hr 07/08/23 20:00 07/08/23 20:00 07/09/23 00:00 Temperature 98.4 F Pulse Rate 108 H 75 113 H Respiratory Rate 20 Blood Pressure 144/72 H Pulse Oximetry 94 Oxygen Delivery Oxygen Flow Rate Fraction of Inspired Oxygen 07/09/23 00:00 07/08/23 20:00 07/09/23 04:00 Temperature 98.9 F Pulse Rate 111 H 111 H 108 H Respiratory Rate 18 18 Blood Pressure 135/88 Pulse Oximetry 93 93 Oxygen Delivery Venturi Mask Oxygen Flow Rate 12 Fraction of Inspired Oxygen 50 07/09/23 04:00 07/09/23 08:00 07/09/23 09:40 Temperature 96.8 F L 97.1 F L Pulse Rate 115 H 110 H Respiratory Rate 18 14 Blood Pressure 137/85 125/81 Pulse Oximetry 93 95 93 Oxygen Delivery High Flow Nasal Cannula Oxygen Flow Rate 6 Fraction of Inspired Oxygen 07/09/23 08:25 07/09/23 14:00 07/09/23 08:00 Temperature 97.7 F Pulse Rate 95 109 H Respiratory Rate 14 Blood Pressure 140/90 Pulse Oximetry 93 95 Oxygen Delivery High Flow Nasal Cannula Oxygen Flow Rate 6 Fraction of Inspired Oxygen 07/09/23 12:00 Temperature Pulse Rate 108 H Respiratory Rate Blood Pressure Pulse Oximetry Oxygen Delivery Oxygen Flow Rate Fraction of Inspired Oxygen Intake/Output Intake/Output: Intake & Output 07/06/23 07/07/23 07/08/23 07/09/23 23:59 23:59 23:59 23:59 Intake Total 2100 372 Balance 2100 372 Meds/Results Medications: Active Medications Generic Name Dose Route Start Last Admin Trade Name Freq PRN Reason Stop Dose Admin Acetamino
[2023-07-09] MEDS: traZODone HCL 50 MG TABLET 100 MG PO (20:12)
[2023-07-09] MEDS: PRAVASTATIN SODIUM 20 MG TABLET 80 MG PO (20:12)
[2023-07-10] VITALS (14 sets, daily range): BP systolic 100–137; BP diastolic 70–81; PULSE 93–112; RESP 14–18; TEMP 36–37.2; O2SAT 92–96
[2023-07-10 06:16] LABS: Basophils Percent Auto 0.1 % (0.2-1.2); Hematocrit 39.5 % (37.0-47.0); Immature Granulocyte Absolute 0.07 K/mm3 (0.00-0.031); Immature Granulocyte Percent A 0.5 % (0-0.5); Lymphocytes Absolute Auto 0.93 K/mm3 (0.9-3.2); Lymphocytes Percent Auto 6.8 % (18.3-44.2); Mean Corpuscular HGB Conc 32.9 g/dl (32-36); Mean Corpuscular Hemoglobin 30.4 pg (26-34); Mean Corpuscular Volume 92.3 fl (80-100); Mean Platelet Volume 9.9 fl (7.4-10.4); Monocytes Absolute Auto 0.6 K/mm3 (0.1-0.6); Monocytes Percent Auto 4.6 % (2.6-8.5); Neutrophils Absolute Auto 12.1 K/mm3 (1.3-6.7); Platelet Count Result 347 k/mm3 (150-375); Red Blood Count 4.28 M/mm3 (4.2-5.4); Red Cell Distribution Width 13.4 % (11.5-14.5); White Blood Count 13.8 K/mm3 (4.5-10.0)
[2023-07-10] MEDS: PIPERACILLN/TAZ 3.375GM/NS50ML 3.375 GM/50 ML BAG IVPB ×3 (06:19→17:30)
[2023-07-10 06:27] LABS: Alanine Aminotransferase 26 U/L (6-35); Albumin Level 3.3 g/dL (3.5-5.1); Alkaline Phosphatase 123 U/L (38-126); Anion Gap 8 mmol/L (8-16); Aspartate Amino Transferase 48 U/L (14-36); Bilirubin,Total 0.6 mg/dL (0.2-1.3); Blood Urea Nitrogen 20 mg/dL (7-17); Calcium 8.7 mg/dL (8.4-10.2); Carbon Dioxide 28 mmol/L (22-30); Chloride 99 mmol/L (98-107); Estimated CRCL calculation 66 ml/min; Estimated Glomerular Filt Rate > 60; Glucose 124 mg/dL (65-110); Magnesium 2.4 mg/dL (1.6-2.3); Potassium 3.3 mmol/L (3.4-5.0); Sodium 135 mmol/L (137-145)
[2023-07-10] MEDS: MULTIVITAMINS THERAPEUTIC TAB (*BKC) 1 TABLET PO (08:20)
[2023-07-10] MEDS: LORATADINE 10 MG TABLET PO (08:20)
[2023-07-10] MEDS: amLODIPine BESYLATE 5 MG TABLET PO (08:21)
[2023-07-10] MEDS: DOCUSATE SODIUM 100 MG CAPSULE PO ×2 (08:21→20:26)
[2023-07-10] MEDS: POTASSIUM CHLORIDE 20 MEQ ER TABLET 40 MEQ PO (11:48)
--- NOTE | 2023-07-10 12:13 | PM.IMPN ---
Progress Note: A&P Assessment and Plan (1) Colonic diverticulum: Code(s): K57.30 - Diverticulosis of large intestine without perforation or abscess without bleeding Status: Acute Assessment and Plan: LLQ pain for the past 3 days, now having RLQ pain. 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 Trace free pelvic fluid. No pneumoperitoneum. General surgery consulted NPO except ice chips Continue IV fluids Diet per General surgery (2) Constipation: Code(s): K59.00 - Constipation, unspecified Status: Acute Assessment and Plan: Last BM 1 week ago and described as hard/small. Metamucil unsuccessful, concern for perforation on CT. -GI consulted -surgery consulted - iv fluids, iv abx, npo bowel rest. (3) Lower abdominal pain: Code(s): R10.30 - Lower abdominal pain, unspecified Status: Acute (4) Hypoxia: Code(s): R09.02 - Hypoxemia Status: Acute Assessment and Plan: New since admission Chest x-ray showed emphysema Does not seem to be in acute exacerbation Start DuoNeb Will check BNP Also to CT to rule out PE Add incentive spirometry Plan Chronic Conditions -Allergies: continue home Claritin -Anxiety: continue home Clonazepam -HLD: continue home Pravastatin -HTN: continue home amlodipine. continue to monitor BP. -Insomnia: continue home Trazodone -continue home multivitamin. DVT prop- SCDs Subjective Date/time seen: 07/10/23 12:13 Interval history: 63 y/o F with history of HTN, HLD, and COPD presents here with lower abdominal pain admitted wit colonic diverticulum and constipation seen by surgery team conservative management. She was initially room air but due to subsequently got hypoxia was put on non-rebreather mask which is tapered down to 6 L remains on 6 L oxygen now and desaturate when taken off. Abdominal pain is improved. Had lot of gas but no bowel movement yet. Review of Systems Review of Systems: All systems reviewed & are unremarkable except as noted in HPI and below Exam Narrative: GENERAL: The patient is well developed, not in acute distress HEENT: Nonicteric sclerae, PERRLA, EOMI. Oropharynx clear. Moist mucous membranes. Conjunctivae appear well perfused. CHEST: Chest wall is nontender. HEART: Regular rate and rhythm without murmur, rubs, or gallops LUNGS: Coarse breath sound bilaterally. no respiratory distress ABDOMEN: Soft, positive bowel sounds, distended, tender lower abdomen, no organomegaly. SKIN: No rash, no excessive bruising, petechiae, or purpura. NEUROLOGIC: Cranial nerves II-XII intact, alert and oriented x 3, no gross motor deficits EXTREMITIES: no edema, cyanosis or clubbing Objective Data Vital Signs Vital Signs: Vital Signs - 24 hr 07/09/23 14:00 07/09/23 17:30 07/09/23 16:00 Temperature 97.7 F 98.2 F Pulse Rate 95 103 H 110 H Respiratory Rate 14 14 Blood Pressure 140/90 136/89 Pulse Oximetry 95 95 Oxygen Delivery Oxygen Flow Rate Fraction of Inspired Oxygen 07/09/23 20:00 07/09/23 20:00 07/09/23 20:00 Temperature 98.6 F Pulse Rate 98 98 101 H Respiratory Rate 14 14 Blood Pressure 142/78 H Pulse Oximetry 96 96 Oxygen Delivery High Flow Nasal Cannula Oxygen Flow Rate 12 Fraction of Inspired Oxygen 50 07/10/23 00:00 07/10/23 00:00 07/09/23 20:20 Temperature 97.4 F L Pulse Rate 101 H 103 H Respiratory Rate 14 Blood Pressure 137/74 Pulse Oximetry 94 93 Oxygen Delivery High Flow Nasal Cannula Oxygen Flow Rate 6 Fraction of Inspired Oxygen 07/10/23 04:00 07/10/23 04:00 07/10/23 08:00 Temperature 97.0 F L 96.8 F L Pulse Rate 102 H 95 112 H Respiratory Rate 18 17 Blood Pressure 125/81 100/70 Pulse Oximetry 94 92 Oxygen Delivery Oxygen Flow Rate Fraction of Inspired Oxygen 07/10/23 08:20 07/10/23 11:54 Temperature 97.0 F L Pulse Rate 9
[2023-07-10] MEDS: IPRATROPIUM BR 0.02% INH SOLN 0.5 MG/2.5 ML VIAL INHALATION ×2 (12:52→20:26)
[2023-07-10] MEDS: ALBUTEROL SULFATE NEB 2.5 MG/3 ML INH INHALATION ×2 (12:52→20:26)
--- NOTE | 2023-07-10 13:15 | PM.PNGS ---
Progress Note: A&P Assessment and Plan (1) Diverticulitis large intestine: Qualifiers: Diverticulitis bleeding: without bleeding Diverticulitis complication: without perforation or abscess Qualified Code(s): K57.32 - Diverticulitis of large intestine without perforation or abscess without bleeding Code(s): K57.32 - Diverticulitis of large intestine without perforation or abscess without bleeding Status: Acute Assessment and Plan: Large diverticulum concerning for ongoing problems or risk of perforation. WBC still a little elevated. No signs of peritonitis that would require emergent surgery. Symptoms improving. Continue clear liquids today. Continue close monitoring. (2) Constipation: Code(s): K59.00 - Constipation, unspecified Status: Acute Assessment and Plan: Colace started yesterday. Will give dulcolax suppository today. (3) Lower abdominal pain: Code(s): R10.30 - Lower abdominal pain, unspecified Status: Acute (4) Tobacco use: Code(s): Z72.0 - Tobacco use Status: Acute (5) HTN (hypertension): Code(s): I10 - Essential (primary) hypertension Status: Acute (6) COPD (chronic obstructive pulmonary disease): Code(s): J44.9 - Chronic obstructive pulmonary disease, unspecified Status: Acute Subjective Subjective Date/Time Seen: 07/10/23 13:15 Interval history: Pain improving but still feeling bloated. No BM since admission and it had been almost 1 week prior to admission for her last BM. No fevers. Tolerating clears but not much appetite yet. Exam GI: Inspection: non-distended GI Palp: Yes Soft to palpation, Yes Tenderness to palpation present (GI) (minimal suprapubic), No Guarding due to palpation present (GI) and No Rebound tenderness present Objective Data Vital Signs Vital Signs: Vital Signs - 24 hr 07/09/23 14:00 07/09/23 17:30 07/09/23 16:00 Temperature 36.5 C 36.8 C Pulse Rate 95 103 H 110 H Respiratory Rate 14 14 Blood Pressure 140/90 136/89 Pulse Oximetry 95 95 Oxygen Delivery Oxygen Flow Rate Fraction of Inspired Oxygen 07/09/23 20:00 07/09/23 20:00 07/09/23 20:00 Temperature 37.0 C Pulse Rate 98 98 101 H Respiratory Rate 14 14 Blood Pressure 142/78 H Pulse Oximetry 96 96 Oxygen Delivery High Flow Nasal Cannula Oxygen Flow Rate 12 Fraction of Inspired Oxygen 50 07/10/23 00:00 07/10/23 00:00 07/09/23 20:20 Temperature 36.3 C L Pulse Rate 101 H 103 H Respiratory Rate 14 Blood Pressure 137/74 Pulse Oximetry 94 93 Oxygen Delivery High Flow Nasal Cannula Oxygen Flow Rate 6 Fraction of Inspired Oxygen 07/10/23 04:00 07/10/23 04:00 07/10/23 08:00 Temperature 36.1 C L 36.0 C L Pulse Rate 102 H 95 112 H Respiratory Rate 18 17 Blood Pressure 125/81 100/70 Pulse Oximetry 94 92 Oxygen Delivery Oxygen Flow Rate Fraction of Inspired Oxygen 07/10/23 08:20 07/10/23 11:54 07/10/23 08:00 Temperature 36.1 C L Pulse Rate 93 95 Respiratory Rate 16 Blood Pressure 118/74 Pulse Oximetry 95 96 Oxygen Delivery High Flow Nasal Cannula Oxygen Flow Rate 6 Fraction of Inspired Oxygen 07/10/23 12:00 Temperature Pulse Rate 94 Respiratory Rate Blood Pressure Pulse Oximetry Oxygen Delivery Oxygen Flow Rate Fraction of Inspired Oxygen Intake/Output Intake/Output: Intake & Output 07/07/23 07/08/23 07/09/23 07/10/23 23:59 23:59 23:59 23:59 Intake Total 2100 2742 387 Balance 2100 2742 387 Meds/Results Medications: Active Medications Generic Name Dose Route Start Last Admin Trade Name Freq PRN Reason Stop Dose Admin Acetaminophen 650 mg 07/07/23 23:29 07/08/23 06:11 Acetaminophen 325 Mg Tablet PO 650 mg Q4H PRN Administration Mild Pain (1-3) or Fever Albuterol 2 puff 07/07/23 23:26 07/08/23 11:51 Albuterol Sulfate (*Sp) Aerosol 1 Puff INHALATION 2 puff BI
[2023-07-10 13:34] LABS: NT Pro B Type Natriuretic Pept 901 pg/mL (19.9-100)
[2023-07-10] MEDS: PRAVASTATIN SODIUM 20 MG TABLET 80 MG PO (20:26)
[2023-07-10] MEDS: guaiFENesin 12 HR 600 MG TABCR PO (20:26)
[2023-07-10] MEDS: BUDESONIDE RESPULE NEB 0.5 MG/2 ML AMP INHALATION (20:26)
[2023-07-10] MEDS: traZODone HCL 50 MG TABLET 100 MG PO (20:26)
[2023-07-11] VITALS (17 sets, daily range): BP systolic 122–136; BP diastolic 71–80; PULSE 88–114; RESP 18–22; TEMP 36.1–37.3; O2SAT 88–96
[2023-07-11] MEDS: PIPERACILLN/TAZ 3.375GM/NS50ML 3.375 GM/50 ML BAG IVPB ×5 (00:23→23:22)
[2023-07-11 06:54] LABS: Hematocrit 37.4 % (37.0-47.0); Hemoglobin 12.2 g/dL (12.0-15.0); Mean Corpuscular HGB Conc 32.6 g/dl (32-36); Mean Corpuscular Hemoglobin 30.2 pg (26-34); Mean Corpuscular Volume 92.6 fl (80-100); Mean Platelet Volume 9.8 fl (7.4-10.4); Platelet Count Result 359 k/mm3 (150-375); Red Blood Count 4.04 M/mm3 (4.2-5.4); Red Cell Distribution Width 13.7 % (11.5-14.5); White Blood Count 12.3 K/mm3 (4.5-10.0)
[2023-07-11 07:11] LABS: Alanine Aminotransferase 31 U/L (6-35); Albumin Level 3.1 g/dL (3.5-5.1); Alkaline Phosphatase 143 U/L (38-126); Anion Gap 6 mmol/L (8-16); Aspartate Amino Transferase 59 U/L (14-36); Bilirubin,Total 0.7 mg/dL (0.2-1.3); Blood Urea Nitrogen 16 mg/dL (7-17); Calcium 8.3 mg/dL (8.4-10.2); Carbon Dioxide 29 mmol/L (22-30); Chloride 100 mmol/L (98-107); Estimated CRCL calculation 76 ml/min; Estimated Glomerular Filt Rate > 60; Glucose 111 mg/dL (65-110); Magnesium 2.2 mg/dL (1.6-2.3); Potassium 3.4 mmol/L (3.4-5.0); Sodium 135 mmol/L (137-145)
[2023-07-11 07:45] LABS: Neutrophils Percent Manual 67 % (46-73); Total Cells Counted 100
[2023-07-11] MEDS: IPRATROPIUM BR 0.02% INH SOLN 0.5 MG/2.5 ML VIAL INHALATION ×3 (07:45→20:14)
[2023-07-11] MEDS: ALBUTEROL SULFATE NEB 2.5 MG/3 ML INH INHALATION ×3 (07:45→20:16)
[2023-07-11] MEDS: BUDESONIDE RESPULE NEB 0.5 MG/2 ML AMP INHALATION ×2 (07:45→20:16)
[2023-07-11 07:46] LABS: Band Neutrophils Percent 6 % (0-6); Lymphocytes Absolute Manual 2.82 K/mm3 (1.1-4.5); Lymphocytes Percent Manual 23 % (18-44); Monocytes Absolute Manual 0.49 K/mm3 (0.1-0.90); Monocytes Percent Manual 4 % (3-9); Neutrophils Absolute Manual 8.97 K/mm3 (1.7-7.2); Platelet Estimate Adequate (Adequate); Schistocytes None Seen (NORMAL)
[2023-07-11] MEDS: DOCUSATE SODIUM 100 MG CAPSULE PO ×2 (08:21→20:40)
[2023-07-11] MEDS: LORATADINE 10 MG TABLET PO (08:21)
[2023-07-11] MEDS: MULTIVITAMINS THERAPEUTIC TAB (*BKC) 1 TABLET PO (08:21)
[2023-07-11] MEDS: guaiFENesin 12 HR 600 MG TABCR PO ×2 (08:22→20:39)
[2023-07-11] MEDS: amLODIPine BESYLATE 5 MG TABLET PO (08:22)
--- NOTE | 2023-07-11 11:23 | PM.PNGS ---
Progress Note: A&P Assessment and Plan (1) Diverticulitis large intestine: Qualifiers: Diverticulitis bleeding: without bleeding Diverticulitis complication: without perforation or abscess Qualified Code(s): K57.32 - Diverticulitis of large intestine without perforation or abscess without bleeding Code(s): K57.32 - Diverticulitis of large intestine without perforation or abscess without bleeding Status: Acute Assessment and Plan: Diverticulitis seems to be improving with non operative management. We will continue with IV antibiotics for now. We will go ahead advanced to full liquid diet today. He is willing to take a suppository today. Continue supportive management. Wean oxygen to room air as tolerated. Repeat CBC tomorrow. Subjective Subjective Date/Time Seen: 07/11/23 11:23 Interval history: Patient feels better today. No nausea. Oxygen was weaned down to room air. No shortness of breath. No bowel movement or flatus yet. She would like to take a suppository today. She tolerated clear liquids without any difficulty. White blood cell count is decreased down to 12,300 from 13,200 yesterday. Minimal lower abdominal pain. Exam Const: General: comfortable and no acute distress Neck: Neck: supple Resp: Effort & Inspection: normal respiratory effort Auscultation: clear to auscultation bilaterally Cardio: Rate: regular rate Rhythm: regular rhythm GI: Other: Abdomen is soft and minimally distended. Minimal tenderness to deep palpation left lower quadrant. Bowel sounds are noted. Exam is pretty benign. Neuro: General: gait normal Speech: normal speech Extrem: General: normal to inspection Psych: Mental Status: mental status grossly normal Affect: normal affect Objective Data Vital Signs Vital Signs: Vital Signs - 24 hr 07/10/23 11:54 07/10/23 12:00 07/10/23 13:00 Temperature 36.1 C L Pulse Rate 93 94 108 H Respiratory Rate 16 18 Blood Pressure 118/74 Pulse Oximetry 96 94 Oxygen Delivery Nasal Cannula Oxygen Flow Rate 6 07/10/23 13:00 07/10/23 13:10 07/10/23 16:00 Temperature Pulse Rate 108 H 110 H 99 Respiratory Rate 18 18 Blood Pressure Pulse Oximetry Oxygen Delivery Oxygen Flow Rate 07/10/23 16:00 07/10/23 20:27 07/10/23 20:31 Temperature 36.6 C Pulse Rate 109 H 96 96 Respiratory Rate 18 18 Blood Pressure 111/76 Pulse Oximetry 94 95 Oxygen Delivery Nasal Cannula Oxygen Flow Rate 6 07/10/23 20:00 07/10/23 20:40 07/10/23 20:00 Temperature Pulse Rate 96 101 H 94 Respiratory Rate 18 18 Blood Pressure Pulse Oximetry 95 Oxygen Delivery Nasal Cannula Oxygen Flow Rate 5 07/10/23 20:00 07/11/23 00:00 07/11/23 00:00 Temperature 37.2 C 36.7 C Pulse Rate 100 100 95 Respiratory Rate 18 18 Blood Pressure 118/78 122/72 Pulse Oximetry 95 94 Oxygen Delivery Oxygen Flow Rate 07/10/23 21:00 07/11/23 04:00 07/11/23 04:00 Temperature 36.8 C Pulse Rate 88 98 Respiratory Rate 18 Blood Pressure 127/80 Pulse Oximetry 94 95 Oxygen Delivery Nasal Cannula Oxygen Flow Rate 5 07/11/23 07:39 07/11/23 07:45 07/11/23 07:45 Temperature 36.7 C Pulse Rate 96 94 Respiratory Rate 18 18 Blood Pressure 122/77 Pulse Oximetry 94 96 Oxygen Delivery High Flow Nasal Cannula Oxygen Flow Rate 5 07/11/23 08:05 07/11/23 09:27 07/11/23 08:20 Temperature Pulse Rate 97 Respiratory Rate 18 Blood Pressure Pulse Oximetry 95 93 Oxygen Delivery High Flow Nasal Cannula High Flow Nasal Cannula Oxygen Flow Rate 3 3 Intake/Output Intake/Output: Intake & Output 07/08/23 07/09/23 07/10/23 07/11/23 23:59 23:59 23:59 23:59 Intake Total 2100 2742 677 590 Balance 2100 2742 677 590 Meds/Results Medications: Active Medications Generic Name Dose Route Start Last Admin Trade Name Freq PRN Reason Stop Dose Admin Acetaminophen 650 mg 07/07/23
--- NOTE | 2023-07-11 12:26 | PM.IMPN ---
Progress Note: A&P Assessment and Plan (1) Colonic diverticulum: Code(s): K57.30 - Diverticulosis of large intestine without perforation or abscess without bleeding Status: Acute Assessment and Plan: LLQ pain for the past 3 days, now having RLQ pain. 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 Trace free pelvic fluid. No pneumoperitoneum. General surgery consulted NPO except ice chips Continue IV fluids Diet per General surgery (2) Constipation: Code(s): K59.00 - Constipation, unspecified Status: Acute Assessment and Plan: Last BM 1 week ago and described as hard/small. Metamucil unsuccessful, concern for perforation on CT. -GI consulted -surgery consulted - iv fluids, iv abx, npo bowel rest. (3) Lower abdominal pain: Code(s): R10.30 - Lower abdominal pain, unspecified Status: Acute (4) Hypoxia: Code(s): R09.02 - Hypoxemia Status: Acute Assessment and Plan: New since admission Chest x-ray showed emphysema Does not seem to be in acute exacerbation Start DuoNeb Will check BNP Also to CT to rule out PE which came back negative for PE but showed left lower lobe atelectasis. Added incentive spirometry DuoNebs. BNP was mildly elevated at 901 of CTA showed left lower lobe atelectasis with small left pleural effusion. Possible mucus plugging. Added Mucinex DuoNeb Pulmicort. Add PAP therapy Add incentive spirometry Plan Chronic Conditions -Allergies: continue home Claritin -Anxiety: continue home Clonazepam -HLD: continue home Pravastatin -HTN: continue home amlodipine. continue to monitor BP. -Insomnia: continue home Trazodone -continue home multivitamin. DVT prop- SCDs Subjective Date/time seen: 07/11/23 12:27 Interval history: 63 y/o F with history of HTN, HLD, and COPD presents here with lower abdominal pain admitted wit colonic diverticulum and constipation seen by surgery team conservative management. She was initially room air but due to subsequently got hypoxia was put on non-rebreather mask which is tapered down to 6 L remains on 6 L oxygen now and desaturate when taken off. Abdominal pain is improved. Had lot of gas but no bowel movement yet. 07/11/2023: Feeling better. Continues on IV antibiotics. Denies any abdominal pain. No bowel movement. Passing gas. Oxygen has been weaned down. No cough reported. Review of Systems Review of Systems: All systems reviewed & are unremarkable except as noted in HPI and below Exam Narrative: GENERAL: The patient is well developed, not in acute distress HEENT: Nonicteric sclerae, PERRLA, EOMI. Oropharynx clear. Moist mucous membranes. Conjunctivae appear well perfused. CHEST: Chest wall is nontender. HEART: Regular rate and rhythm without murmur, rubs, or gallops LUNGS: Coarse breath sound bilaterally. no respiratory distress ABDOMEN: Soft, positive bowel sounds, distended, tender lower abdomen, no organomegaly. SKIN: No rash, no excessive bruising, petechiae, or purpura. NEUROLOGIC: Cranial nerves II-XII intact, alert and oriented x 3, no gross motor deficits EXTREMITIES: no edema, cyanosis or clubbing Objective Data Vital Signs Vital Signs: Vital Signs - 24 hr 07/10/23 13:00 07/10/23 13:00 07/10/23 13:10 Temperature Pulse Rate 108 H 108 H 110 H Respiratory Rate 18 18 18 Blood Pressure Pulse Oximetry 94 Oxygen Delivery Nasal Cannula Oxygen Flow Rate 6 07/10/23 16:00 07/10/23 16:00 07/10/23 20:27 Temperature 97.9 F Pulse Rate 99 109 H 96 Respiratory Rate 18 18 Blood Pressure 111/76 Pulse Oximetry 94 Oxygen Delivery Oxygen Flow Rate 07/10/23 20:31 07/10/23 20:00 07/10/23 20:40 Temperature Pulse Rate 96 96 101 H Respiratory Rate 18 18 Blood Pressure Pulse Oximetry 95 95 Oxygen Delivery Nasal Cannula Nasal Cannula Oxygen Flow Rate 6 5 07/10/23
[2023-07-11] MEDS: BISACODYL 10 MG SUPPOSITORY RECTAL (15:19)
[2023-07-11] MEDS: ACETAMINOPHEN 325 MG TABLET 650 MG PO (20:39)
[2023-07-11] MEDS: traZODone HCL 50 MG TABLET 100 MG PO (20:40)
[2023-07-11] MEDS: PRAVASTATIN SODIUM 20 MG TABLET 80 MG PO (20:40)
[2023-07-12] VITALS (14 sets, daily range): BP systolic 112–137; BP diastolic 77–86; PULSE 88–116; RESP 12–22; TEMP 36.2–37.1; O2SAT 86–97
[2023-07-12] MEDS: PIPERACILLN/TAZ 3.375GM/NS50ML 3.375 GM/50 ML BAG IVPB ×3 (05:10→18:12)
[2023-07-12 06:07] LABS: Hematocrit 37.1 % (37.0-47.0); Hemoglobin 12.3 g/dL (12.0-15.0); Mean Corpuscular HGB Conc 33.2 g/dl (32-36); Mean Corpuscular Hemoglobin 30.3 pg (26-34); Mean Corpuscular Volume 91.4 fl (80-100); Mean Platelet Volume 9.5 fl (7.4-10.4); Platelet Count Result 365 k/mm3 (150-375); Red Blood Count 4.06 M/mm3 (4.2-5.4); Red Cell Distribution Width 13.9 % (11.5-14.5); White Blood Count 11.2 K/mm3 (4.5-10.0)
[2023-07-12 06:16] LABS: Anion Gap 7 mmol/L (8-16); Blood Urea Nitrogen 12 mg/dL (7-17); Calcium 8.3 mg/dL (8.4-10.2); Carbon Dioxide 28 mmol/L (22-30); Chloride 99 mmol/L (98-107); Estimated CRCL calculation 76 ml/min; Estimated Glomerular Filt Rate > 60; Glucose 111 mg/dL (65-110); Magnesium 2.2 mg/dL (1.6-2.3); Potassium 3.1 mmol/L (3.4-5.0); Sodium 134 mmol/L (137-145)
[2023-07-12 07:00] LABS: Band Neutrophils Percent 13 % (0-6); Lymphocytes Absolute Manual 1.12 K/mm3 (1.1-4.5); Lymphocytes Percent Manual 10 % (18-44); Monocytes Absolute Manual 1.68 K/mm3 (0.1-0.90); Monocytes Percent Manual 15 % (3-9); Neutrophils Percent Manual 62 % (46-73); Platelet Estimate Adequate (Adequate); Schistocytes None Seen (NORMAL); Total Cells Counted 100
--- NOTE | 2023-07-12 07:20 | PC.NURSE ---
pt desaturated with ambulation to 86% o2 increased to 2 L HF 90% sat now
[2023-07-12] MEDS: IPRATROPIUM BR 0.02% INH SOLN 0.5 MG/2.5 ML VIAL INHALATION (08:02)
[2023-07-12] MEDS: BUDESONIDE RESPULE NEB 0.5 MG/2 ML AMP INHALATION (08:02)
[2023-07-12] MEDS: ALBUTEROL SULFATE NEB 2.5 MG/3 ML INH INHALATION (08:02)
[2023-07-12] MEDS: amLODIPine BESYLATE 5 MG TABLET PO (08:39)
[2023-07-12] MEDS: LORATADINE 10 MG TABLET PO (08:43)
[2023-07-12] MEDS: MULTIVITAMINS THERAPEUTIC TAB (*BKC) 1 TABLET PO (08:43)
[2023-07-12] MEDS: guaiFENesin 12 HR 600 MG TABCR PO ×2 (08:43→20:32)
[2023-07-12] MEDS: DOCUSATE SODIUM 100 MG CAPSULE PO ×2 (08:43→20:32)
[2023-07-12] MEDS: POTASSIUM CHLORIDE 20 MEQ ER TABLET 40 MEQ PO (08:45)
--- NOTE | 2023-07-12 10:42 | PM.IMPN ---
Progress Note: A&P Assessment and Plan (1) Colonic diverticulum: Code(s): K57.30 - Diverticulosis of large intestine without perforation or abscess without bleeding Status: Acute Assessment and Plan: LLQ pain for the past 3 days, now having RLQ pain. 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 Trace free pelvic fluid. No pneumoperitoneum. General surgery consulted NPO except ice chips Continue IV fluids Diet per General surgery (2) Constipation: Code(s): K59.00 - Constipation, unspecified Status: Acute Assessment and Plan: Last BM 1 week ago and described as hard/small. Metamucil unsuccessful, concern for perforation on CT. -GI consulted -surgery consulted - iv fluids, iv abx, npo bowel rest. (3) Lower abdominal pain: Code(s): R10.30 - Lower abdominal pain, unspecified Status: Acute Assessment and Plan: Worsened today. Will be check CT abdomen (4) Hypoxia: Code(s): R09.02 - Hypoxemia Status: Acute Assessment and Plan: New since admission Chest x-ray showed emphysema Does not seem to be in acute exacerbation Start DuoNeb CT to rule out PE which came back negative for PE but showed left lower lobe atelectasis. Added incentive spirometry DuoNebs. BNP was mildly elevated at 901 of CTA showed left lower lobe atelectasis with small left pleural effusion. Possible mucus plugging. Added Mucinex DuoNeb Pulmicort. Add PAP therapy Add incentive spirometry Still requiring 1-2 L of oxygen via nasal Plan Chronic Conditions -Allergies: continue home Claritin -Anxiety: continue home Clonazepam -HLD: continue home Pravastatin -HTN: continue home amlodipine. continue to monitor BP. -Insomnia: continue home Trazodone -continue home multivitamin. DVT prop- SCDs Subjective Date/time seen: 07/12/23 10:42 Interval history: 63 y/o F with history of HTN, HLD, and COPD presents here with lower abdominal pain admitted wit colonic diverticulum and constipation seen by surgery team conservative management. She was initially room air but due to subsequently got hypoxia was put on non-rebreather mask which is tapered down to 6 L remains on 6 L oxygen now and desaturate when taken off. Abdominal pain is improved. Had lot of gas but no bowel movement yet. 07/11/2023: Feeling better. Continues on IV antibiotics. Denies any abdominal pain. No bowel movement. Passing gas. Oxygen has been weaned down. No cough reported. 07/12/2023: WBC count improving. Requires 1-2 L oxygen. No bowel movement charted. Complains of abdominal right side today. Not passing flatness no further bowel movement. Received Dulcolax suppository yesterday. Review of Systems Review of Systems: All systems reviewed & are unremarkable except as noted in HPI and below Exam Narrative: GENERAL: The patient is well developed, not in acute distress HEENT: Nonicteric sclerae, PERRLA, EOMI. Oropharynx clear. Moist mucous membranes. Conjunctivae appear well perfused. CHEST: Chest wall is nontender. HEART: Regular rate and rhythm without murmur, rubs, or gallops LUNGS: Coarse breath sound bilaterally. no respiratory distress ABDOMEN: Soft, positive bowel sounds, distended, tender right upper quadrant and lumbar area, no organomegaly. SKIN: No rash, no excessive bruising, petechiae, or purpura. NEUROLOGIC: Cranial nerves II-XII intact, alert and oriented x 3, no gross motor deficits EXTREMITIES: no edema, cyanosis or clubbing Objective Data Vital Signs Vital Signs: Vital Signs - 24 hr 07/11/23 12:00 07/11/23 12:35 07/11/23 12:00 Temperature 97.0 F L Pulse Rate 95 Respiratory Rate 19 Blood Pressure 124/78 Pulse Oximetry 96 92 95 Oxygen Delivery High Flow Nasal Cannula High Flow Nasal Cannula Oxygen Flow Rate 2 1 Fraction of Inspired Oxygen 07/11/23 13:17 07/11/23 12:00 07/11/23
[2023-07-12] MEDS: MORPHINE SULFATE (*CRX) 2 MG/ML INJ IV PUSH (11:36)
[2023-07-12] MEDS: ONDANSETRON INJ 4 MG/2 ML VIAL IV PUSH (11:36)
[2023-07-12] MEDS: POTASSIUM CHLORIDE INJ 40 MEQ in SODIUM CHLORIDE 0.9% IV 500 ML 130 MEQ IVPB (12:55)
--- NOTE | 2023-07-12 13:24 | PM.PNGS ---
Progress Note: A&P Assessment and Plan (1) Diverticulitis large intestine: Qualifiers: Diverticulitis bleeding: without bleeding Diverticulitis complication: without perforation or abscess Qualified Code(s): K57.32 - Diverticulitis of large intestine without perforation or abscess without bleeding Code(s): K57.32 - Diverticulitis of large intestine without perforation or abscess without bleeding Status: Acute Assessment and Plan: Repeat CT scan done today without obvious worsening of the scan on my view. Official radiology review is still pending. Still no bowel function. She has very low potassium at 3.1 today which may be causing an ileus. But has replacement is ongoing. Abdominal exam is about the same as yesterday. Definitely no diffuse peritoneal signs to suggest acute surgical abdomen. Continue present management with IV antibiotics. Hold off on full liquids if she continues to have any nausea. Subjective Subjective Date/Time Seen: 07/12/23 13:24 Interval history: Patient states she is a little bit more to distended and having a little bit more right-sided abdominal pain today. No bowel movements or flatus after taking a suppository yesterday. No fever. No vomiting. She had been tolerating some full liquids. Hospitalist service order another CT scan from pelvis today without contrast. Results of that is still pending. [place] [address] [place] [address] today. Potassium is low at 3.1 and she is getting potassium replacement. Exam GI: Other: Abdomen is soft. Moderate distention. Mild tenderness to palpation in the right side of the abdomen. No peritoneal signs or guarding is noted. Objective Data Vital Signs Vital Signs: Vital Signs - 24 hr 07/11/23 16:00 07/11/23 16:15 07/11/23 16:00 Temperature 37.3 C Pulse Rate 90 114 H Respiratory Rate 22 H Blood Pressure 136/71 Pulse Oximetry 92 88 L Oxygen Delivery Oxygen Flow Rate Fraction of Inspired Oxygen 07/11/23 20:00 07/11/23 20:17 07/11/23 20:32 Temperature Pulse Rate 96 97 99 Respiratory Rate 18 18 18 Blood Pressure Pulse Oximetry 92 Oxygen Delivery High Flow Nasal Cannula Oxygen Flow Rate 1 Fraction of Inspired Oxygen 50 07/11/23 20:33 07/11/23 20:00 07/11/23 20:00 Temperature 36.7 C Pulse Rate 90 94 Respiratory Rate 18 Blood Pressure 122/77 Pulse Oximetry 94 92 Oxygen Delivery High Flow Nasal Cannula Oxygen Flow Rate 1 Fraction of Inspired Oxygen 07/12/23 00:00 07/12/23 00:00 07/12/23 04:00 Temperature 36.6 C Pulse Rate 89 88 96 Respiratory Rate 18 Blood Pressure 118/79 Pulse Oximetry 93 Oxygen Delivery Oxygen Flow Rate Fraction of Inspired Oxygen 07/12/23 04:00 07/12/23 05:08 07/12/23 04:00 Temperature 36.5 C Pulse Rate 106 H Respiratory Rate 20 Blood Pressure 134/77 Pulse Oximetry 91 91 86 L Oxygen Delivery High Flow Nasal Cannula Oxygen Flow Rate 2 Fraction of Inspired Oxygen 50 07/12/23 08:02 07/12/23 08:05 07/12/23 08:16 Temperature Pulse Rate 100 100 Respiratory Rate 18 18 Blood Pressure Pulse Oximetry 91 Oxygen Delivery High Flow Nasal Cannula Oxygen Flow Rate 1 Fraction of Inspired Oxygen 07/12/23 08:00 07/12/23 08:40 07/12/23 12:00 Temperature 36.2 C L 36.4 C Pulse Rate 100 113 H Respiratory Rate 12 22 H Blood Pressure 124/78 112/82 Pulse Oximetry 97 90 93 Oxygen Delivery Nasal Cannula Oxygen Flow Rate 2 Fraction of Inspired Oxygen Intake/Output Intake/Output: Intake & Output 07/09/23 07/10/23 07/11/23 07/12/23 23:59 23:59 23:59 23:59 Intake Total 2742 677 1370 418 Balance 2742 677 1370 418 Meds/Results Medications: Active Medications Generic Name Dose Route Start Last Admin Trade Name Freq PRN Reason Stop Dose Admin Acetaminophen 650 mg 07/07/23 23:29 07/11/23 20:39 Acetaminophen 325 Mg Tablet PO
[2023-07-12] MEDS: SODIUM CHLORIDE 0.9% IV 1,000 ML 75 ML IV CONT (16:21)
[2023-07-12] MEDS: metroNIDAZOLE 500 MG/ISO 100ML 500 MG/100 ML BAG 100 MG IVPB (16:21)
[2023-07-12] MEDS: PRAVASTATIN SODIUM 20 MG TABLET 80 MG PO (20:32)
[2023-07-12] MEDS: traZODone HCL 50 MG TABLET 100 MG PO (20:32)
[2023-07-13] VITALS (28 sets, daily range): BP systolic 100–131; BP diastolic 58–94; PULSE 96–112; RESP 14–25; TEMP 36.1–37.7; O2SAT 79–98
[2023-07-13] MEDS: PIPERACILLN/TAZ 3.375GM/NS50ML 3.375 GM/50 ML BAG IVPB ×4 (00:01→23:30)
[2023-07-13] MEDS: metroNIDAZOLE 500 MG/ISO 100ML 500 MG/100 ML BAG 100 MG IVPB ×4 (00:59→23:30)
[2023-07-13] MEDS: MORPHINE SULFATE (*CRX) 2 MG/ML INJ IV PUSH (01:19)
[2023-07-13] MEDS: ONDANSETRON INJ 4 MG/2 ML VIAL IV PUSH ×2 (01:19→14:11)
[2023-07-13 06:48] LABS: Hematocrit 39.5 % (37.0-47.0); Hemoglobin 12.7 g/dL (12.0-15.0); Mean Corpuscular HGB Conc 32.2 g/dl (32-36); Mean Corpuscular Hemoglobin 30.2 pg (26-34); Mean Corpuscular Volume 93.8 fl (80-100); Mean Platelet Volume 9.8 fl (7.4-10.4); Platelet Count Result 414 k/mm3 (150-375); Red Blood Count 4.21 M/mm3 (4.2-5.4); Red Cell Distribution Width 14.7 % (11.5-14.5); White Blood Count 13.7 K/mm3 (4.5-10.0)
[2023-07-13 06:56] LABS: Alanine Aminotransferase 21 U/L (6-35); Albumin Level 2.9 g/dL (3.5-5.1); Alkaline Phosphatase 106 U/L (38-126); Anion Gap 10 mmol/L (8-16); Aspartate Amino Transferase 32 U/L (14-36); Bilirubin,Total 0.7 mg/dL (0.2-1.3); Blood Urea Nitrogen 20 mg/dL (7-17); Calcium 8.2 mg/dL (8.4-10.2); Carbon Dioxide 23 mmol/L (22-30); Chloride 103 mmol/L (98-107); Estimated CRCL calculation 66 ml/min; Estimated Glomerular Filt Rate > 60; Glucose 103 mg/dL (65-110); Magnesium 2.3 mg/dL (1.6-2.3); Potassium 3.9 mmol/L (3.4-5.0); Sodium 136 mmol/L (137-145)
[2023-07-13 07:11] LABS: Band Neutrophils Percent 24 % (0-6); Lymphocytes Absolute Manual 1.09 K/mm3 (1.1-4.5); Lymphocytes Percent Manual 8 % (18-44); Monocytes Absolute Manual 0.27 K/mm3 (0.1-0.90); Monocytes Percent Manual 2 % (3-9); Neutrophils Absolute Manual 12.33 K/mm3 (1.7-7.2); Neutrophils Percent Manual 66 % (46-73); Platelet Estimate Increased (Adequate); Schistocytes None Seen (NORMAL); Total Cells Counted 100
--- NOTE | 2023-07-13 07:27 | PM.PNGS ---
Progress Note: A&P Assessment and Plan (1) Diverticulitis large intestine: Qualifiers: Diverticulitis bleeding: without bleeding Diverticulitis complication: with perforation and abscess Qualified Code(s): K57.20 - Diverticulitis of large intestine with perforation and abscess without bleeding Code(s): K57.32 - Diverticulitis of large intestine without perforation or abscess without bleeding Status: Acute Assessment and Plan: CT now showing perforation with feculent peritonitis and free air. I discussed findings with patient and need to proceed with surgical intervention at this point. I have recommended exploratory laparotomy, sigmoid colon resection, possible ostomy. I discussed that there is a high probability of needing an ostomy. I discussed the procedure, risks, benefits, and alternatives. Questions answered. Continue broad spectrum antibiotics. Might require prolonged recovery including postop ileus and wound healing issues. Will try to have PICC line placed in anticipation of needing TPN. (2) Constipation: Code(s): K59.00 - Constipation, unspecified Status: Acute Assessment and Plan: Colace started yesterday. Will give dulcolax suppository today. (3) Lower abdominal pain: Code(s): R10.30 - Lower abdominal pain, unspecified Status: Acute (4) Tobacco use: Code(s): Z72.0 - Tobacco use Status: Acute (5) HTN (hypertension): Code(s): I10 - Essential (primary) hypertension Status: Acute (6) COPD (chronic obstructive pulmonary disease): Code(s): J44.9 - Chronic obstructive pulmonary disease, unspecified Status: Acute Subjective Subjective Date/Time Seen: 07/13/23 07:27 Interval history: Patient still hasn't had a BM and is more distended. CT done yesterday showed worsening diverticulitis with pneumoperitoneum. Still not having too much pain but abdomen is firm. Exam GI: Inspection: distended GI Palp: Yes Firmness to palpation present (GI) and Yes Tenderness to palpation present (GI) (lower) Objective Data Vital Signs Vital Signs: Vital Signs - 24 hr 07/12/23 08:02 07/12/23 08:05 07/12/23 08:16 Temperature Pulse Rate 100 100 Respiratory Rate 18 18 Blood Pressure Pulse Oximetry 91 Oxygen Delivery High Flow Nasal Cannula Oxygen Flow Rate 1 Fraction of Inspired Oxygen 07/12/23 08:00 07/12/23 08:40 07/12/23 12:00 Temperature 36.2 C L 36.4 C Pulse Rate 100 113 H Respiratory Rate 12 22 H Blood Pressure 124/78 112/82 Pulse Oximetry 97 90 93 Oxygen Delivery Nasal Cannula Oxygen Flow Rate 1 Fraction of Inspired Oxygen 07/12/23 12:15 07/12/23 12:00 07/12/23 12:15 Temperature Pulse Rate Respiratory Rate Blood Pressure Pulse Oximetry 90 89 L 90 Oxygen Delivery Nasal Cannula High Flow Nasal Cannula Oxygen Flow Rate 1 2 Fraction of Inspired Oxygen 07/12/23 15:56 07/12/23 16:00 07/12/23 08:00 Temperature 36.5 C 36.2 C L Pulse Rate 110 H 108 H 112 H Respiratory Rate 20 22 H Blood Pressure 137/77 130/86 Pulse Oximetry 90 92 Oxygen Delivery High Flow Nasal Cannula Oxygen Flow Rate 2 Fraction of Inspired Oxygen 07/12/23 12:00 07/12/23 16:00 07/12/23 19:35 Temperature Pulse Rate 116 H 108 H Respiratory Rate Blood Pressure Pulse Oximetry 93 Oxygen Delivery High Flow Nasal Cannula Oxygen Flow Rate 2 Fraction of Inspired Oxygen 07/12/23 20:00 07/12/23 20:00 07/12/23 20:00 Temperature 37.1 C Pulse Rate 106 H 108 H 108 H Respiratory Rate 14 Blood Pressure 113/80 Pulse Oximetry 92 92 Oxygen Delivery High Flow Nasal Cannula Oxygen Flow Rate 2 Fraction of Inspired Oxygen 50 07/13/23 00:00 07/13/23 03:03 07/13/23 00:00 Temperature 37.0 C Pulse Rate 105 H 105 H 105 H Respiratory Rate 16 16 Blood Pressure 110/80 Pulse Oximetry 90 90 Oxygen Delivery Nasal Cannula Oxygen Flow Ra
--- NOTE | 2023-07-13 07:32 | WPDHPUPDATE1 ---
History and Physical Update Update Date/Time: 07/13/23 07:32 History and Physical has been reviewed, including an updated exam of the patient. There are NO changes in the patient's condition. Risks, benefits, and alternatives have been discussed and questions answered. Patient agrees to proceed with procedure.
[2023-07-13] MEDS: guaiFENesin 12 HR 600 MG TABCR PO (07:59)
[2023-07-13] MEDS: amLODIPine BESYLATE 5 MG TABLET PO (07:59)
[2023-07-13] MEDS: MULTIVITAMINS THERAPEUTIC TAB (*BKC) 1 TABLET PO (07:59)
[2023-07-13] MEDS: LORATADINE 10 MG TABLET PO (07:59)
--- NOTE | 2023-07-13 08:06 | PCRCNOTE ---
Pt refusing breathing treatments at this time states she does not do treatments at home. Pt states she does Albuterol mdi as needed.
--- NOTE | 2023-07-13 11:19 | WPDANESEPPF ---
Anes - Initial Pre Proc Eval Procedure: Operation Date: 07/13/23 12:00 Proposed Procedures p Exploratory Laparotomy, Sigmoid Colon Resection, Possible Ostomy - Jaylon Reynolds DO Date/Time: 07/13/23 11:19 Surgeon: Tam Chirinos MD Pre Op Diagnosis: Diverticulitis Patient Data Age: 63 Gender: F Height: 1.68 m Weight: 64.3 kg Last Vital Signs Temp 36.3 C L 07/13/23 10:39 Pulse 108 H 07/13/23 10:39 Resp 18 07/13/23 10:39 BP 125/84 07/13/23 10:39 Pulse Ox 91 07/13/23 10:39 O2 Del Method Nasal Cannula 07/13/23 10:39 O2 Flow Rate 4 07/13/23 10:39 FiO2 50 07/13/23 08:00 Allergies Allergy/AdvReac Type Severity Reaction Status Date / Time Sulfonamides Allergy Intermediate Rash Uncoded 07/13/23 10:54 Home Medications Medication Instructions Recorded Confirmed Type Adult One Daily Multivitamin 1 tablet PO DAILY 07/07/23 07/13/23 History albuterol sulfate 90 mcg/actuation 2 puff inhalation BID PRN 07/07/23 07/13/23 History aerosol inhaler Shortness Of Breath amlodipine 5 mg tablet 5 mg PO DAILY 07/07/23 07/13/23 History clonazepam 0.5 mg tablet 0.5 mg PO BID PRN Anxiety 07/07/23 07/13/23 History loratadine 10 mg tablet (Claritin) 10 mg PO DAILY 07/07/23 07/13/23 History pravastatin 80 mg tablet 80 mg PO HS 07/07/23 07/13/23 History trazodone 100 mg tablet 100 mg PO QHS 07/07/23 07/13/23 History Laboratory Tests 07/13/23 07/13/23 06:03 09:06 WBC 13.7 H K/mm3 (4.5-10.0) RBC 4.21 M/mm3 (4.2-5.4) Hgb 12.7 g/dL (12.0-15.0) Hct 39.5 % (37.0-47.0) MCV 93.8 fl (80-100) MCH 30.2 pg (26-34) MCHC 32.2 g/dl (32-36) RDW 14.7 H % (11.5-14.5) Plt Count 414 H k/mm3 (150-375) MPV 9.8 fl (7.4-10.4) Immature Gran % (Auto) Not Reportable Neut % (Auto) Not Reportable Lymph % (Auto) Not Reportable Crisp % (Auto) Not Reportable Eos % (Auto) Not Reportable Baso % (Auto) Not Reportable Lymph # (Auto) Not Reportable Crisp # (Auto) Not Reportable Eos # (Auto) Not Reportable Baso # (Auto) Not Reportable Abs Immat Gran (auto) Not Reportable Absolute Neuts (auto) Not Reportable Absolute Nucleated RBC Not Reportable Total Counted 100 Neutrophils % (Manual) 66 % (46-73) Band Neutrophils % 24 H % (0-6) Lymphocytes % (Manual) 8 L % (18-44) Monocytes % (Manual) 2 L % (3-9) Nucleated RBC % Not Reportable Abs Neuts (Manual) 12.33 H K/mm3 (1.7-7.2) Abs Lymphs (Manual) 1.09 L K/mm3 (1.1-4.5) Abs Monocytes (Manual) 0.27 K/mm3 (0.1-0.90) Platelet Estimate Increased (Adequate) Schistocytes None seen (NORMAL) Sodium 136 L mmol/L (137-145) Potassium 3.9 mmol/L (3.4-5.0) Chloride 103 mmol/L (98-107) Carbon Dioxide 23 mmol/L (22-30) Anion Gap 10 mmol/L (8-16) BUN 20 H mg/dL (7-17) Creatinine 0.70 mg/dL (0.7-1.0) Estim Creat Clear Calc 66 ml/min Estimated GFR > 60 (59 - ) Glucose 103 mg/dL (65-110) Calcium 8.2 L mg/dL (8.4-10.2) Magnesium 2.3 mg/dL (1.6-2.3) Total Bilirubin 0.7 mg/dL (0.2-1.3) AST 32 U/L (14-36) ALT 21 U/L (6-35) Alkaline Phosphatase 106 U/L (38-126) Total Protein 6.0 L g/dL (6.3-8.2) Albumin 2.9 L g/dL (3.5-5.1) Blood Type A Negative Antibody Screen Negative Patient hx anesthesia problems: none Family hx anesthesia problems: none Results Review: All pre-operative results and documents have been reviewed as part of the pre-operative evaluation. [facility] Past Medical History Medical History COPD (chronic obstructive pulmonary disease) HLD (hyperlipidemi
--- NOTE | 2023-07-13 12:36 | WPDANESACPN ---
Arterial Cath Proc Note Consent: Given emergent patient conditions, temporal constraints may have precluded informed consent. Time-Out: A pre-procedural Time-Out was completed immediately before starting the procedure and confirmed: Patient Identification, Site, Procedure, Patient Position and the Availability of Requisite Equipment. Procedure Note Patient position: trendelenburg Insertion site: right radial Method of insertion: surface landmarks Outbound Telemarketer prep: mask and hat Site prep: chlorahexadine Skin anesthesia: general anesthesia Gauge: 20 gauge Length (cm): 4.4 cm Closure/Dressing: antimicrobial disc and tegaderm Complications: None immediately noted/suspected.
[2023-07-13] MEDS: SOD HYALURONATE/CARBOXYMETHYLCELLULOSE 5X6 1 EACH TOPICAL (12:50)
[2023-07-13 13:29] LABS: Alveolar/Arterial O2 Gradient < 0.0 mmHg; Base Excess ABG -6.8 mEq/l (+/-2.0); Fractional Inspired Oxygen 21 %; HCO3 ABG 18.7 mEq/l (22.0-26.0); Oxygen Content ABG 17.2 %vol (16.0-22.0); Oxygen Saturation ABG 98.9 % (95.0-100.0); Oxyhemoglobin 97.6 % THb (90.0-100.0); PCO2 ABG 37.3 mmHg (35.0-45.0); PO2 ABG 161.6 mmHg (80.0-100.0); PO2 FiO2 Ratio Arterial Blood > 0.00 %; Total Hemoglobin 12.3 g/dL (12.0-18.0); pH ABG 7.317 (7.350-7.450)
[2023-07-13 13:30] LABS: Modified Allen's Test Pass; Site Drawn LEFT RADIAL
--- NOTE | 2023-07-13 13:55 | W.PM.PROC2 ---
Procedure Note - Detailed Date of Procedure 07/13/23 Pre-op Diagnosis Perforated sigmoid diverticulitis with abscess Post-op Diagnosis Same Procedure Performed 1. Exploratory laparotomy 2. Drainage of intra-abdominal abscess 3. Sigmoid colectomy with end descending colostomy Surgeon Jaylon Reynolds, Anesthesia General Indications This is a 63-year-old woman who presented with lower abdominal pain and new findings diverticulitis with perforation, free air and abscess. She was admitted to the hospital on 07/07/2023 as a transfer from [facility]. CT in the emergency department showed evidence of acute diverticulitis with giant diverticulum and surrounding inflammation. There was no evidence of free air or abscess that time. She was treated with bowel rest IV antibiotics and was showing signs of improvement. Over the weekend her abdomen was becoming more distended and firm. She had not had a bowel movement since 1 week prior to admission despite giving multiple stool softeners and laxatives. A repeat CT was done on 07/12/2023 and this now showed evidence of diverticulitis with perforation and feculent peritonitis. She was kept NPO and discussions were made with the patient about treatment options. Decision was made to proceed with emergency exploratory laparotomy, sigmoid resection, with possible ostomy. Findings Exploratory laparotomy was performed. The patient was found to have a large intra-abdominal abscess with feculent peritonitis the lower abdomen. About 700 mL of fecal and fluid was aspirated from her pelvis. He had multiple abscesses that were drained. The site of perforation was identified on the sigmoid colon. The perforation appeared to be about 2 cm size. The remainder of the colon appeared distended and stool-filled. The cecum was lying down in the pelvis next to where the perforation was. There was reactive inflammation around the cecum but no signs of perforation at the cecum. The small bowel also had dilation and reactive induration the small bowel appeared healthy and viable. A sigmoid colectomy was performed with and descending colostomy. The pelvis and abdominal cavity was irrigated with about 4 L of sterile saline. NG tube was placed by Anesthesia during the surgery and placement was confirmed within the body of the stomach. Description of Procedure Procedure as well as risks, benefits, and alternatives were discussed with the patient. Written consent was obtained and placed in chart prior to procedure. Patient was brought back to surgical suite. She was placed supine on operating table. Time-out was done to patient procedure. She was then intubated by the anesthesia department. She was then repositioned into modified lithotomy position. Her abdomen was prepped and draped in sterile fashion using chlorhexidine prep. A 15 cm vertical midline incision was made in the lower abdomen extending just superior to umbilicus using a 10 blade scalpel. Electrocautery was used for hemostasis and for dissection through the subcutaneous tissue. The linea alba was then incised using electrocautery. The peritoneum was then also entered using electrocautery. An Hi wound protector was placed. The abdominal cavity was carefully inspected. A large amount feculent fluid was aspirated from the pelvis. There were multiple adhesions around the abscesses in pelvis that were broken up to completely drain the abscesses. The small bowel was then delivered out pelvis to better inspect the cecum, sigmoid colon, rectum. The cecum was delivered out of the pelvis carefully inspected and appeared healthy and viable. The rectum distal to area diverticulitis appeared healthy. The lateral peritoneal attachments to the sigmoid and descending colon were carefully taken electrocautery. The lateral mesorectum was then scored with cautery. A window was made in the mesorectum of the upper rectum using electrocautery and blunt dissecti
[2023-07-13] MEDS: LACTATED RINGERS 1,000 ML 30 ML IV CONT ×2 (13:58)
[2023-07-13] MEDS: METOPROLOL TARTRATE INJ 5 MG/5 ML VIAL 2.5 MG IV PUSH ×3 (14:25→15:36)
[2023-07-13 14:27] LABS: Alveolar/Arterial O2 Gradient 256.1 mmHg; Fractional Inspired Oxygen 50 %; HCO3 ABG 19.9 mEq/l (22.0-26.0); Oxygen Content ABG 16.4 %vol (16.0-22.0); Oxygen Saturation ABG 89.7 % (95.0-100.0); Oxyhemoglobin 88.1 % THb (90.0-100.0); PCO2 ABG 36.7 mmHg (35.0-45.0); PO2 ABG 59.1 mmHg (80.0-100.0); PO2 FiO2 Ratio Arterial Blood 1.18 %; Total Hemoglobin 13.2 g/dL (12.0-18.0); pH ABG 7.353 (7.350-7.450)
[2023-07-13 14:28] LABS: Modified Allen's Test Pass
[2023-07-13 14:32] LABS: Device SIMPLE MASK; Site Drawn ARTLINE
--- NOTE | 2023-07-13 14:36 | SUR.PHASEI ---
1436 - dr. pedraza aware of [facility] results
[2023-07-13] MEDS: diphenhydrAMINE HCl INJ 50 MG/ML VIAL 12.5 MG IV PUSH (14:55)
[2023-07-13 15:43] LABS: Alveolar/Arterial O2 Gradient 629.9 mmHg; Base Excess ABG -2.5 mEq/l (+/-2.0); Fractional Inspired Oxygen 100 %; Oxygen Content ABG 16.1 %vol (16.0-22.0); PCO2 ABG 32.6 mmHg (35.0-45.0); PO2 ABG 50.5 mmHg (80.0-100.0); Total Hemoglobin 13.6 g/dL (12.0-18.0); pH ABG 7.427 (7.350-7.450)
[2023-07-13 15:44] LABS: Device NON-INVASIVE VENT; Modified Allen's Test Pass; Site Drawn ARTLINE
[2023-07-13 15:45] LABS: Oxygen Saturation ABG 87.1 % (95.0-100.0)
[2023-07-13 15:46] LABS: Oxyhemoglobin 84.3 % THb (90.0-100.0)
[2023-07-13 15:47] LABS: Non-Invasive Vent Rate 10 /MIN
--- NOTE | 2023-07-13 15:47 | SUR.PHASEI ---
1547 - dr. pedraza at bedside. aware of latest ABG results. ok to transfer to ICU
[2023-07-13 15:48] LABS: Non-Invasive Expiratory Pressure 6 CMH2O; Non-Invasive Inspiratory Pressure 14 CMH2O
[2023-07-13] MEDS: SODIUM CHLORIDE 0.9% IV 1,000 ML 75 ML IV CONT (17:40)
--- NOTE | 2023-07-13 17:55 | PM.IMPN ---
Progress Note: A&P Assessment and Plan (1) Colonic diverticulum: Code(s): K57.30 - Diverticulosis of large intestine without perforation or abscess without bleeding Status: Acute Assessment and Plan: LLQ pain for the past 3 days, now having RLQ pain. 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 Trace free pelvic fluid. No pneumoperitoneum. General surgery consulted NPO except ice chips Continue IV fluids Diet per General surgery repeat CT with perforationw ith intraabdominal abscess s/p EL with drainge of abwscses and sigmoid colectomy with end deescending colostomy (2) Constipation: Code(s): K59.00 - Constipation, unspecified Status: Acute Assessment and Plan: Last BM 1 week ago and described as hard/small. Metamucil unsuccessful, concern for perforation on CT. -GI consulted -surgery consulted - iv fluids, iv abx, npo bowel rest. (3) Lower abdominal pain: Code(s): R10.30 - Lower abdominal pain, unspecified Status: Acute Assessment and Plan: Worsened today. Will be check CT abdomen (4) Hypoxia: Code(s): R09.02 - Hypoxemia Status: Acute Assessment and Plan: New since admission Chest x-ray showed emphysema Does not seem to be in acute exacerbation Start DuoNeb CT to rule out PE which came back negative for PE but showed left lower lobe atelectasis. Added incentive spirometry DuoNebs. BNP was mildly elevated at 901 of CTA showed left lower lobe atelectasis with small left pleural effusion. Possible mucus plugging. Added Mucinex DuoNeb Pulmicort. Add PAP therapy Add incentive spirometry Still requiring 1-2 L of oxygen via nasal 07/13/2023: postoperative hypoxic resp failure placed on BIPAP. no hypercapnea on abg. taper as tolerated to NC Plan Chronic Conditions -Allergies: continue home Claritin -Anxiety: continue home Clonazepam -HLD: continue home Pravastatin -HTN: continue home amlodipine. continue to monitor BP. -Insomnia: continue home Trazodone -continue home multivitamin. DVT prop- lovenox Subjective Date/time seen: 07/13/23 17:55 Interval history: 63 y/o F with history of HTN, HLD, and COPD presents here with lower abdominal pain admitted wit colonic diverticulum and constipation seen by surgery team conservative management. She was initially room air but due to subsequently got hypoxia was put on non-rebreather mask which is tapered down to 6 L remains on 6 L oxygen now and desaturate when taken off. Abdominal pain is improved. Had lot of gas but no bowel movement yet. 07/11/2023: Feeling better. Continues on IV antibiotics. Denies any abdominal pain. No bowel movement. Passing gas. Oxygen has been weaned down. No cough reported. 07/12/2023: WBC count improving. Requires 1-2 L oxygen. No bowel movement charted. Complains of abdominal right side today. Not passing flatness no further bowel movement. Received Dulcolax suppository yesterday. 07/13/2023: ct finding reivewed. pt taken for exp lap today. patient postoperatively had hypoxia and sent to ICU. on BIPAP. no hypercapnia noted. pateint awake and alert, reports no sob. no chest pain. Review of Systems Review of Systems: All systems reviewed & are unremarkable except as noted in HPI and below Exam Narrative: GENERAL: The patient is well developed, not in acute distress on BIPAP HEENT: Nonicteric sclerae, PERRLA, EOMI. Oropharynx clear. Moist mucous membranes. Conjunctivae appear well perfused. CHEST: Chest wall is nontender. HEART: Regular rate and rhythm without murmur, rubs, or gallops LUNGS: Coarse breath sound bilaterally. no respiratory distress ABDOMEN: Soft, tender to touch, surgical dressing in mildline. left side colostomy pouch SKIN: No rash, no excessive bruising, petechiae, or purpura. NEUROLOGIC: Cranial nerves II-XII intact, alert and oriented x 3, no gross motor deficits
[2023-07-13] MEDS: IPRATROPIUM BR 0.02% INH SOLN 0.5 MG/2.5 ML VIAL INHALATION (20:07)
[2023-07-13] MEDS: BUDESONIDE RESPULE NEB 0.5 MG/2 ML AMP INHALATION (20:07)
[2023-07-13] MEDS: ALBUTEROL SULFATE NEB 2.5 MG/3 ML INH INHALATION (20:07)
[2023-07-14] VITALS (27 sets, daily range): BP systolic 96–129; BP diastolic 62–112; PULSE 82–103; RESP 14–25; TEMP 35.8–37.7; O2SAT 80–98
[2023-07-14] MEDS: IPRATROPIUM BR 0.02% INH SOLN 0.5 MG/2.5 ML VIAL INHALATION ×4 (02:23→20:35)
[2023-07-14] MEDS: HYDROmorphone HCL INJ (*CRX) 1 MG/ML SYR 0.5 MG IV PUSH ×2 (02:23→04:56)
[2023-07-14] MEDS: ALBUTEROL SULFATE NEB 2.5 MG/3 ML INH INHALATION ×4 (02:23→20:35)
[2023-07-14] MEDS: SODIUM CHLORIDE 0.9% IV 1,000 ML 75 ML IV CONT (04:29)
[2023-07-14 05:06] LABS: Basophils Absolute Auto 0.1 K/mm3 (0.0-0.1); Basophils Percent Auto 0.4 % (0.2-1.2); Hematocrit 37.5 % (37.0-47.0); Hemoglobin 12.1 g/dL (12.0-15.0); Immature Granulocyte Percent A 1.7 % (0-0.5); Lymphocytes Absolute Auto 1.35 K/mm3 (0.9-3.2); Lymphocytes Percent Auto 7.5 % (18.3-44.2); Mean Corpuscular HGB Conc 32.3 g/dl (32-36); Mean Corpuscular Hemoglobin 30.3 pg (26-34); Monocytes Absolute Auto 0.6 K/mm3 (0.1-0.6); Monocytes Percent Auto 3.3 % (2.6-8.5); Neutrophils Absolute Auto 15.6 K/mm3 (1.3-6.7); Neutrophils Percent Auto 87.1 % (45.5-73.1); Platelet Count Result 479 k/mm3 (150-375); Red Blood Count 3.99 M/mm3 (4.2-5.4); Red Cell Distribution Width 14.8 % (11.5-14.5); White Blood Count 17.9 K/mm3 (4.5-10.0)
[2023-07-14] MEDS: PIPERACILLN/TAZ 3.375GM/NS50ML 3.375 GM/50 ML BAG IVPB ×4 (05:15→23:15)
[2023-07-14] MEDS: metroNIDAZOLE 500 MG/ISO 100ML 500 MG/100 ML BAG 100 MG IVPB ×3 (05:16→20:58)
[2023-07-14 05:21] LABS: Anion Gap 7 mmol/L (8-16); Blood Urea Nitrogen 24 mg/dL (7-17); Calcium 7.6 mg/dL (8.4-10.2); Carbon Dioxide 20 mmol/L (22-30); Chloride 112 mmol/L (98-107); Estimated CRCL calculation 66 ml/min; Estimated Glomerular Filt Rate > 60; Glucose 114 mg/dL (65-110); Potassium 3.7 mmol/L (3.4-5.0); Sodium 139 mmol/L (137-145)
--- NOTE | 2023-07-14 07:32 | WPDANESPN ---
Anes - Prog Note Post-Op Date/Time: 07/14/23 07:32 Cardiovascular status: normal Respiratory status: normal Airway patency: baseline Mental status: baseline Post-Op hydration status: normal Vital Signs: Last Vital Signs Temp 99.6 F 07/14/23 03:46 Pulse 96 07/14/23 06:00 Resp 18 07/14/23 06:00 BP 114/65 07/14/23 06:00 Pulse Ox 92 07/14/23 06:00 O2 Del Method BiPAP 07/14/23 03:57 O2 Flow Rate 10 07/13/23 15:10 FiO2 80 07/14/23 03:57 Pain Score (VAS): 5 I/O: Intake & Output 07/13/23 07/13/23 07/14/23 15:59 23:59 07:59 Intake Total 954 157 8926 Output Total 100 350 Balance 150 287 850 Laboratory Tests 07/14/23 04:51 07/14/23 04:51 07/13/23 07/13/23 07/13/23 09:06 12:48 14:22 WBC RBC Hgb Hct MCV MCH MCHC RDW Plt Count MPV Immature Gran % (Auto) Neut % (Auto) Lymph % (Auto) Meigs % (Auto) Eos % (Auto) Baso % (Auto) Lymph # (Auto) Meigs # (Auto) Eos # (Auto) Baso # (Auto) Abs Immat Gran (auto) Absolute Neuts (auto) Absolute Nucleated RBC Nucleated RBC % Puncture Site Left radial Artline ABG pH 7.317 L 7.353 ABG pCO2 37.3 36.7 ABG pO2 161.6 H 59.1 L ABG PO2/FiO2 Ratio > 0.00 1.18 ABG HCO3 18.7 L 19.9 L ABG O2 Saturation 98.9 89.7 L ABG O2 Content 17.2 16.4 ABG Base Excess -6.8 -5.0 A-a Gradient < 0.0 256.1 Oxyhemoglobin 97.6 88.1 L Total Hemoglobin 12.3 13.2 O2 Delivery Device Not Reportable Simple mask O2 Liters/Min Not Reportable 8.0 Vent Rate FiO2 21 50 Expiratory Pressure Inspiratory Pressure Sodium Potassium Chloride Carbon Dioxide Anion Gap BUN Creatinine Estim Creat Clear Calc Estimated GFR Glucose Calcium Magnesium Blood Type A Negative Antibody Screen Negative 07/13/23 07/14/23 15:38 04:51 WBC 17.9 H RBC 3.99 L Hgb 12.1 Hct 37.5 MCV 94.0 MCH 30.3 MCHC 32.3 RDW 14.8 H Plt Count 479 H MPV 10.0 Immature Gran % (Auto) 1.7 H Neut % (Auto) 87.1 H Lymph % (Auto) 7.5 L Meigs % (Auto) 3.3 Eos % (Auto) 0.0 Baso % (Auto) 0.4 Lymph # (Auto) 1.35 Meigs # (Auto) 0.6 Eos # (Auto) 0.0 Baso # (Auto) 0.1 Abs Immat Gran (auto) 0.30 H Absolute Neuts (auto) 15.6 H Absolute Nucleated RBC 0.0 Nucleated RBC % 0.0 Puncture Site Artline ABG pH 7.427 ABG pCO2 32.6 L ABG pO2 50.5 L ABG PO2/FiO2 Ratio 0.50 ABG HCO3 21.0 L ABG O2 Saturation 87.1 L* ABG O2 Content 16.1 ABG Base Excess -2.5 A-a Gradient 629.9 Oxyhemoglobin 84.3 L* Total Hemoglobin 13.6 O2 Delivery Device Non-invasive vent O2 Liters/Min Not Reportable Vent Rate 10 FiO2 100 Expiratory Pressure 6 Inspiratory Pressure 14 Sodium 139 Potassium 3.7 Chloride 112 H Carbon Dioxide 20 L Anion Gap 7 L BUN 24 H Creatinine 0.70 Estim Creat Clear Calc 66 Estimated GFR > 60 Glucose 114 H Calcium 7.6 L Magnesium 2.0 Blood Type Antibody Screen Post-procedural complaints: none Patient Feedback: Patient satisfied with anesthetic care.
[2023-07-14 09:07] LABS: PCO2 ABG 30.8 mmHg (35.0-45.0); PO2 ABG 52.5 mmHg (80.0-100.0); pH ABG 7.433 (7.350-7.450)
[2023-07-14 09:08] LABS: Alveolar/Arterial O2 Gradient 449.4 mmHg; Base Excess ABG -3.1 mEq/l (+/-2.0); HCO3 ABG 20.1 mEq/l (22.0-26.0); Oxygen Content ABG 15.9 %vol (16.0-22.0); Oxygen Saturation ABG 88.7 % (95.0-100.0); Total Hemoglobin 13.1 g/dL (12.0-18.0)
[2023-07-14 09:09] LABS: Device NON-INVASIVE VENT; Fractional Inspired Oxygen 75 %; Modified Allen's Test Pass; Site Drawn ARTLINE
[2023-07-14 09:11] LABS: Oxyhemoglobin 86.3 % THb (90.0-100.0)
[2023-07-14 09:12] LABS: Non-Invasive Expiratory Pressure 8 CMH2O; Non-Invasive Inspiratory Pressure 14 CMH2O; Non-Invasive Vent Rate 16 /MIN
[2023-07-14] MEDS: BUDESONIDE RESPULE NEB 0.5 MG/2 ML AMP INHALATION ×2 (09:15→20:35)
[2023-07-14] MEDS: ENOXAPARIN 40 MG/0.4 ML SYRINGE SUB-Q (11:01)
[2023-07-14] MEDS: HYDROmorphone HCL INJ (*CRX) 1 MG/ML SYR IV PUSH ×4 (11:06→23:15)
--- NOTE | 2023-07-14 11:55 | WPDCNINT ---
Assessment and Plan Assessment and plan (1) Acute respiratory failure: Code(s): J96.00 - Acute respiratory failure, unspecified whether with hypoxia or hypercapnia Status: Acute Assessment and Plan: Patient does have history of COPD but appears to be having multifactorial acute respiratory failure. She is significantly positive on her intake and output balance. Repeat T CT scan done on 07/12 showed left lower lobe and right basilar consolidation with small left pleural effusion Patient currently on BiPAP at 14/5. I increased the PEEP to 8. I checked ABG and which confirmed hypoxia and no hypercarbia Patient will be transition to Airvo Add incentive spirometry Continue antibiotics Zosyn and Flagyl DC further IV fluids.. Will give dose of Lasix Bronchodilators (2) COPD (chronic obstructive pulmonary disease): Code(s): J44.9 - Chronic obstructive pulmonary disease, unspecified Status: Acute Assessment and Plan: Bronchodilators (3) Perforation of sigmoid colon due to diverticulitis: Code(s): K57.20 - Diverticulitis of large intestine with perforation and abscess without bleeding Status: Acute Assessment and Plan: Status post exploratory laparotomy drainage of abscess and colostomy Discussed with general surgery Plan to start TPN general surgery Pain control NPO General surgery wants to continue Zosyn and Flagyl at this time (4) Intra-abdominal abscess: Code(s): K65.1 - Peritoneal abscess Status: Acute Assessment and Plan: See above (5) Pneumonia: Code(s): J18.9 - Pneumonia, unspecified organism Status: Acute Assessment and Plan: Patient had consolidation on left lower lobe which was new as it was not present on the initial CT scan Continue Zosyn Plan DVT prophylaxis -Lovenox Stress ulcer prophylaxis -Protonix Nutrition -patient will be started on TPN Code Status - Full Code Case discussed with general surgery Total Critical Care Time - 35 minutes Due to a high probability of clinically significant, life threatening deterioration, the patient required my highest level of preparedness to intervene emergently and I personally spent this critical care time directly and personally managing the patient. This critical care time included obtaining a history; examining the patient; pulse oximetry; ordering and review of studies; arranging urgent treatment with development of a management plan; evaluation of patient's response to treatment; frequent reassessment; and discussions with other providers. It was exclusive of separately billable procedures and treating other patients and teaching time. Please see Assessment and Plan section and the rest of the note for further information on patient assessment and treatment [employer]er Consult Note Consult date: 07/14/23 Reason for consult: Hypoxia, perforated diverticulitis HPI: Norma Steiner is a 63 year old female was admitted from OR yesterday after exploratory laparotomy, drainage of intra-abdominal abscess, sigmoid colectomy with end descending colostomy for perforated diverticulitis with abscess. Patient has history of hypertension hyperlipidemia and COPD and was transferred from [facility] where she presented with left lower quadrant pain on 07/07. She was initially diagnosed with diverticulitis and manage conservatively. GI General surgery consult. Patient was treated with IV antibiotics IV fluids. Patient also was requiring supplemental oxygen. During the hospital course patient had worsening of her abdominal pain and repeat CT scan showed perforation. Patient was taken to the operating room yesterday and underwent above-mentioned surgery. Post operation patient was admitted to ICU for further evaluation management. Patient's I have received significant amount IV fluids and also was hypoxic required BiPAP. This morning when I saw the patient she was on BiPAP and unable to provi
--- NOTE | 2023-07-14 13:32 | PM.PNGS ---
Progress Note: A&P Assessment and Plan (1) Diverticulitis large intestine: Qualifiers: Diverticulitis bleeding: without bleeding Diverticulitis complication: with perforation and abscess Qualified Code(s): K57.20 - Diverticulitis of large intestine with perforation and abscess without bleeding Code(s): K57.32 - Diverticulitis of large intestine without perforation or abscess without bleeding Status: Acute Assessment and Plan: Postop ileus expected, continue NG decompression and await improvement in abdominal distention. Plan to start TPN tomorrow. Continue IV antibiotics Keep in ICU today (2) Constipation: Code(s): K59.00 - Constipation, unspecified Status: Acute (3) Lower abdominal pain: Code(s): R10.30 - Lower abdominal pain, unspecified Status: Acute (4) Tobacco use: Code(s): Z72.0 - Tobacco use Status: Acute (5) HTN (hypertension): Code(s): I10 - Essential (primary) hypertension Status: Acute (6) COPD (chronic obstructive pulmonary disease): Code(s): J44.9 - Chronic obstructive pulmonary disease, unspecified Status: Acute Subjective Subjective Date/Time Seen: 07/14/23 13:32 Interval history: Pain controlled. Mostly having respiratory issues today. BP stable. Ostomy with stool in bag. Exam GI: Inspection: distended, incision (dressing dry) and other (ostomy patent and functioning) GI Palp: Yes Soft to palpation and Yes Tenderness to palpation present (GI) (incisional) Auscultation: Hypoactive bowel sounds present Objective Data Vital Signs Vital Signs: Vital Signs - 24 hr 07/13/23 13:58 07/13/23 14:10 07/13/23 14:25 Temperature 36.1 C L Pulse Rate 112 H 112 H 99 Respiratory Rate 16 22 H 20 Blood Pressure 131/58 L 129/94 H 115/70 Pulse Oximetry 88 L 90 91 Oxygen Delivery Simple Face Mask Simple Face Mask Simple Face Mask Oxygen Flow Rate 8 8 8 Fraction of Inspired Oxygen 07/13/23 14:40 07/13/23 14:25 07/13/23 14:55 Temperature Pulse Rate 101 H 112 H 100 Respiratory Rate 20 14 Blood Pressure 103/67 117/89 Pulse Oximetry 92 90 Oxygen Delivery Simple Face Mask Simple Face Mask Oxygen Flow Rate 8 8 Fraction of Inspired Oxygen 07/13/23 15:10 07/13/23 15:25 07/13/23 15:29 Temperature Pulse Rate 112 H 110 H 112 H Respiratory Rate 20 20 Blood Pressure 102/73 100/78 Pulse Oximetry 79 L Oxygen Delivery Non-Rebreather Mask Oxygen Flow Rate 10 Fraction of Inspired Oxygen 07/13/23 15:36 07/13/23 15:40 07/13/23 15:32 Temperature Pulse Rate 108 H 96 112 H Respiratory Rate 20 21 H Blood Pressure 114/68 Pulse Oximetry 86 L 80 L Oxygen Delivery BiPAP BiPAP Oxygen Flow Rate Fraction of Inspired Oxygen 100 07/13/23 15:55 07/13/23 16:36 07/13/23 16:47 Temperature 36.6 C Pulse Rate 97 98 100 Respiratory Rate 20 19 Blood Pressure 100/60 120/64 Pulse Oximetry 89 L 97 Oxygen Delivery BiPAP Oxygen Flow Rate Fraction of Inspired Oxygen 100 07/13/23 16:48 07/13/23 16:29 07/13/23 17:25 Temperature Pulse Rate 98 104 H Respiratory Rate 22 H 20 21 H Blood Pressure 112/72 Pulse Oximetry 96 90 94 Oxygen Delivery BiPAP BiPAP Oxygen Flow Rate Fraction of Inspired Oxygen 07/13/23 20:24 07/13/23 20:00 07/13/23 20:00 Temperature Pulse Rate 101 H 97 101 H Respiratory Rate 20 20 Blood Pressure Pulse Oximetry 97 98 Oxygen Delivery BiPAP BiPAP Oxygen Flow Rate Fraction of Inspired Oxygen 80 07/13/23 20:00 07/13/23 23:59 07/14/23 00:00 Temperature 37.7 C H 37.7 C H Pulse Rate 98 101 H 99 Respiratory Rate 25 H 22 H Blood Pressure 102/67 108/69 Pulse Oximetry 97 94 94 Oxygen Delivery BiPAP Oxygen Flow Rate Fraction of Inspired Oxygen 80 07/14/23 02:25 07/14/23 02:26 07/14/23 00:00 Temperature Pulse Rate 101 H 101 H 100 Respiratory Rate 19 19 Blood Pressure Pulse Oximetry
[2023-07-14 13:37] LABS: NT Pro B Type Natriuretic Pept 224 pg/mL (19.9-100)
[2023-07-14] MEDS: PANTOPRAZOLE SODIUM IV 40 MG VIAL IV PUSH (13:58)
[2023-07-14] MEDS: CENTRAL LINE FLUSH 10 ML IV PUSH ×2 (13:59→20:58)
[2023-07-15] VITALS (31 sets, daily range): BP systolic 95–142; BP diastolic 62–81; PULSE 79–108; RESP 16–24; TEMP 36.5–36.9; O2SAT 85–100
[2023-07-15] MEDS: HYDROmorphone HCL INJ (*CRX) 1 MG/ML SYR IV PUSH ×4 (01:21→11:09)
[2023-07-15] MEDS: IPRATROPIUM BR 0.02% INH SOLN 0.5 MG/2.5 ML VIAL INHALATION ×4 (01:38→20:25)
[2023-07-15] MEDS: ALBUTEROL SULFATE NEB 2.5 MG/3 ML INH INHALATION ×4 (01:38→20:26)
[2023-07-15 04:12] LABS: Hematocrit 33.1 % (37.0-47.0); Hemoglobin 10.5 g/dL (12.0-15.0); Mean Corpuscular HGB Conc 31.7 g/dl (32-36); Mean Corpuscular Hemoglobin 30.3 pg (26-34); Mean Corpuscular Volume 95.7 fl (80-100); Mean Platelet Volume 9.7 fl (7.4-10.4); Platelet Count Result 412 k/mm3 (150-375); Red Blood Count 3.46 M/mm3 (4.2-5.4); Red Cell Distribution Width 14.9 % (11.5-14.5); White Blood Count 16.3 K/mm3 (4.5-10.0)
[2023-07-15 04:23] LABS: Alanine Aminotransferase 19 U/L (6-35); Albumin Level 2.5 g/dL (3.5-5.1); Alkaline Phosphatase 77 U/L (38-126); Anion Gap 5 mmol/L (8-16); Aspartate Amino Transferase 36 U/L (14-36); Bilirubin,Total 0.4 mg/dL (0.2-1.3); Blood Urea Nitrogen 21 mg/dL (7-17); Calcium 7.9 mg/dL (8.4-10.2); Carbon Dioxide 25 mmol/L (22-30); Chloride 113 mmol/L (98-107); Estimated CRCL calculation 76 ml/min; Estimated Glomerular Filt Rate > 60; Glucose 103 mg/dL (65-110); Magnesium 2.4 mg/dL (1.6-2.3); Phosphorus 2.4 mg/dL (2.5-4.5); Potassium 3.5 mmol/L (3.4-5.0); Sodium 143 mmol/L (137-145)
[2023-07-15] MEDS: CENTRAL LINE FLUSH 10 ML IV PUSH ×3 (05:32→21:01)
[2023-07-15] MEDS: PIPERACILLN/TAZ 3.375GM/NS50ML 3.375 GM/50 ML BAG IVPB ×4 (05:32→23:57)
[2023-07-15] MEDS: metroNIDAZOLE 500 MG/ISO 100ML 500 MG/100 ML BAG 100 MG IVPB ×3 (05:32→21:00)
[2023-07-15] MEDS: BUDESONIDE RESPULE NEB 0.5 MG/2 ML AMP INHALATION ×2 (07:15→20:27)
[2023-07-15] MEDS: ENOXAPARIN 40 MG/0.4 ML SYRINGE SUB-Q (08:02)
[2023-07-15] MEDS: PANTOPRAZOLE SODIUM IV 40 MG VIAL IV PUSH (08:02)
[2023-07-15] MEDS: FUROSEMIDE INJ 40 MG/4 ML VIAL IV PUSH (08:06)
[2023-07-15] MEDS: POTASSIUM PHOS,M-BASIC-D-BASIC 20 MMOL in SODIUM CHLORIDE 0.9% IV 250 ML 64.17 MMOL IVPB (08:31)
--- NOTE | 2023-07-15 09:42 | WPDINTPN ---
Progress Note: A&P Assessment and Plan (1) Acute respiratory failure: Code(s): J96.00 - Acute respiratory failure, unspecified whether with hypoxia or hypercapnia Status: Acute Assessment and Plan: Patient does have history of COPD but appears to be having multifactorial acute respiratory failure. She is significantly positive on her intake and output balance. Repeat CT scan done on 07/12 showed left lower lobe and right basilar consolidation with small left pleural effusion Patient was on BiPAP yesterday but was transitioned to Airvo. Increased work of breathing and oxygen requirement I have placed patient back on BiPAP at 14/8. Wean oxygen if possible Lasix IV x1 Discussed possibility of intubation with patient patient is not sure she wants to be on the ventilator but at this time is full code Add incentive spirometry Continue antibiotics Zosyn and Flagyl Bronchodilators (2) COPD (chronic obstructive pulmonary disease): Code(s): J44.9 - Chronic obstructive pulmonary disease, unspecified Status: Acute Assessment and Plan: See above (3) Pneumonia: Code(s): J18.9 - Pneumonia, unspecified organism Status: Acute Assessment and Plan: Patient had consolidation on left lower lobe which was new as it was not present on the initial CT scan Continue Zosyn (4) Perforation of sigmoid colon due to diverticulitis: Code(s): K57.20 - Diverticulitis of large intestine with perforation and abscess without bleeding Status: Acute Assessment and Plan: Status post exploratory laparotomy drainage of abscess and colostomy Discussed with general surgery Plan to start TPN by general surgery Pain control NPO General surgery wants to continue Zosyn and Flagyl at this time (5) Intra-abdominal abscess: Code(s): K65.1 - Peritoneal abscess Status: Acute Assessment and Plan: See above (6) Left hip pain: Code(s): M25.552 - Pain in left hip Status: Acute Assessment and Plan: Patient has chronic left hip pain. 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 This critical care time included obtaining a history; examining the patient; pulse oximetry; ordering and review of studies; arranging urgent treatment with development of a management plan; evaluation of patient's response to treatment; frequent reassessment; and discussions with other providers. It was exclusive of separately billable procedures and treating other patients and teaching time. Please see Assessment and Plan section and the rest of the note for further information on patient assessment and treatment Subjective Date/time seen: 07/15/23 Overnight events reviewed. Afebrile Continues to be on Airvo with increased oxygen requirement and patient on 90% FiO2 and 40 L flow this morning. She complains of pain in the left hip which is chronic but states that is uncontrollable and rates it at 8 to 9/10. Worse with laying back in the bed. She denies any nausea vomiting. She states she has been feeling little more short of breath this morning. Denies any abdominal pain nausea vomiting. Review of system is positive for dry mouth. All other systems were reviewed and were negative Saturation in high 80s. Vital signs are acceptable Review of Systems Review of Systems: All systems reviewed & are unremarkable except as noted in HPI and below (Subjective) Exam Narrative: General: Pt is alert awake and mild respiratory distress Lungs/Ches
--- NOTE | 2023-07-15 11:25 | PM.PNGS ---
Progress Note: A&P Assessment and Plan (1) Diverticulitis large intestine: Qualifiers: Diverticulitis bleeding: without bleeding Diverticulitis complication: with perforation and abscess Qualified Code(s): K57.20 - Diverticulitis of large intestine with perforation and abscess without bleeding Code(s): K57.32 - Diverticulitis of large intestine without perforation or abscess without bleeding Status: Acute Assessment and Plan: Continue NG decompression until breathing stable, don't want to risk aspirating by removing too soon Will start TPN today Continue IV antibiotics Discussed with patient and that she doesn't have any surgical needs for transfer to higher level of care, but if Hospitalist or ICU physician think she needs to be transferred, then this can be attempted. (2) Acute respiratory failure: Code(s): J96.00 - Acute respiratory failure, unspecified whether with hypoxia or hypercapnia Status: Acute Assessment and Plan: Continue as per Oxidized Finish Plater (3) Constipation: Code(s): K59.00 - Constipation, unspecified Status: Acute (4) Lower abdominal pain: Code(s): R10.30 - Lower abdominal pain, unspecified Status: Acute (5) Tobacco use: Code(s): Z72.0 - Tobacco use Status: Acute (6) HTN (hypertension): Code(s): I10 - Essential (primary) hypertension Status: Acute (7) COPD (chronic obstructive pulmonary disease): Code(s): J44.9 - Chronic obstructive pulmonary disease, unspecified Status: Acute Subjective Subjective Date/Time Seen: 07/15/23 11:25 Interval history: Patient anxious. asking about transfer to [facility]. Most concerns are over her anxiety and restlessness. Her breathing hasn't improved which is also contributing to the anxiety. Abdominal pain controlled. Mostly c/o left buttock pain. No fevers. Exam GI: Inspection: distended and incision (intact with aleida) GI Palp: Yes Soft to palpation, Yes Tenderness to palpation present (GI) (incisional) and No Guarding due to palpation present (GI) Other: Ostomy functioning with stool in bag Objective Data Vital Signs Vital Signs: Vital Signs - 24 hr 07/14/23 12:00 07/14/23 12:00 07/14/23 12:00 Temperature 35.8 C L Pulse Rate 95 95 95 Respiratory Rate 14 14 Blood Pressure 129/112 H Pulse Oximetry 92 92 Oxygen Delivery High Flow Therapy with Na Oxygen Flow Rate 65 Fraction of Inspired Oxygen 55 07/14/23 13:27 07/14/23 14:00 07/14/23 16:45 Temperature Pulse Rate 101 H 101 H Respiratory Rate 16 16 Blood Pressure 118/74 Pulse Oximetry 93 93 Oxygen Delivery High Flow Therapy with Na Oxygen Flow Rate 40 Fraction of Inspired Oxygen 60 07/14/23 16:00 07/14/23 16:00 07/14/23 16:00 Temperature 35.8 C L Pulse Rate 93 93 93 Respiratory Rate 16 16 Blood Pressure 121/65 Pulse Oximetry 94 93 Oxygen Delivery High Flow Therapy with Na Oxygen Flow Rate 65 Fraction of Inspired Oxygen 55 07/14/23 20:00 07/14/23 20:37 07/14/23 20:37 Temperature 36.4 C Pulse Rate 95 96 Respiratory Rate 14 18 Blood Pressure 96/62 L Pulse Oximetry 93 88 L Oxygen Delivery High Flow Therapy with Na Oxygen Flow Rate 40 Fraction of Inspired Oxygen 60 07/14/23 20:00 07/14/23 20:49 07/14/23 20:50 Temperature Pulse Rate 95 96 96 Respiratory Rate 14 20 20 Blood Pressure Pulse Oximetry 80 L 92 Oxygen Delivery BiPAP BiPAP Oxygen Flow Rate Fraction of Inspired Oxygen 100 100 07/14/23 20:51 07/14/23 22:00 07/14/23 20:00 Temperature Pulse Rate 95 86 82 Respiratory Rate 22 H 18 Blood Pressure 108/73 Pulse Oximetry 92 97 Oxygen Delivery BiPAP Oxygen Flow Rate Fraction of Inspired Oxygen 07/14/23 22:00 07/15/23 00:00 07/15/23 00:00 Temperature 36.5 C Pulse Rate 89 86 86 Respiratory Rate 18 18 Blood Pressure 114/71 Pulse Oximetry 96
[2023-07-15] MEDS: LIDOCAINE 5% PATCH 1 PATCH TRANSDERM (11:53)
[2023-07-15] MEDS: AMINO ACIDS 5%/D15W/E-LYTES/CA 2,000 ML with MULTIVITAMINS-12 INJ VIAL 1 2.5 ML, MULTIV... 40 ML IV CONT (11:55)
[2023-07-15] MEDS: FAT EMULSIONS IV 20% 250 ML 20.83 ML IVPB (13:20)
[2023-07-15] MEDS: MORPHINE SULFATE (*CRX) 2 MG/ML INJ IV PUSH (13:20)
[2023-07-15 13:52] LABS: Partial Thromboplastin Time 48.8 SECONDS (22.3-36.8)
[2023-07-15 13:58] LABS: Transferrin 99 mg/dL (206-381)
--- NOTE | 2023-07-15 14:43 | WPDINTPN ---
Progress Note: A&P Assessment and Plan (1) Acute respiratory failure: Code(s): J96.00 - Acute respiratory failure, unspecified whether with hypoxia or hypercapnia Status: Acute Assessment and Plan: Patient does have history of COPD but appears to be having multifactorial acute respiratory failure secondary to pneumonia. Postop patient was on BiPAP and was then transitioned to Airvo. She initially tolerated Airvo for 24 hours but then deteriorated requiring intubation on 07/15. Post intubation patient remained hypoxic and had to be sedated paralyzed and placed in prone position CTA lung 1. No pulmonary embolus identified. 2. Airspace opacities of the lower lobes and lingula, left greater than right, consistent with pneumonia and atelectasis. 3. Persistent intraperitoneal fluid in the bilateral pericolic gutters and pelvis, postoperative versus abscess. Will switch patient to supine position and monitor and continue wean FiO2 if possible ABG chest x-ray and ventilator settings reviewed Continue Zosyn Flagyl and vancomycin Continue bronchodilators (2) COPD (chronic obstructive pulmonary disease): Code(s): J44.9 - Chronic obstructive pulmonary disease, unspecified Status: Acute Assessment and Plan: See above (3) Pneumonia: Code(s): J18.9 - Pneumonia, unspecified organism Status: Acute Assessment and Plan: See above (4) Perforation of sigmoid colon due to diverticulitis: Code(s): K57.20 - Diverticulitis of large intestine with perforation and abscess without bleeding Status: Acute Assessment and Plan: Status post exploratory laparotomy drainage of abscess and colostomy Discussed with general surgery Patient was started on tPN by general surgery yesterday but due to her respiratory deterioration TPN was stopped Will start trickle tube feeds if okay with General surgery today (5) Intra-abdominal abscess: Code(s): K65.1 - Peritoneal abscess Status: Acute Assessment and Plan: See above (6) Left hip pain: Code(s): M25.552 - Pain in left hip Status: Acute Assessment and Plan: Patient has chronic left hip pain. 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 This is likely multifactorial secondary to sepsis, positive pressure ventilation and sedation. Take acid level was normal and she has been afebrile. Vancomycin was added to the antibiotic coverage She was given additional 2 L bolus and started on IV fluids infusion which I will discontinue now Continue Levophed titration to maintain mean arterial pressure Plan DVT prophylaxis -Lovenox Stress ulcer prophylaxis -Protonix Nutrition -patient will be started on tube feeds Code Status - Full Code Total Critical Care Time - 35 minutes Due to a high probability of clinically significant, life threatening deterioration, the patient required my highest level of preparedness to intervene emergently and I personally spent this critical care time directly and personally managing the patient. This critical care time included obtaining a history; examining the patient; pulse oximetry; ordering and review of studies; arranging urgent treatment with development of a management plan; evaluation of patient's response to treatment; frequent reassessment; and discussions with other providers. It was exclusive of separately billable procedures and treating other patients and teaching time. Please see Assessment and Plan section and the rest of the note for further information on patient assessment
--- NOTE | 2023-07-15 14:44 | WPDPROCEDUR ---
Procedures Intubation Intubation Date: 07/15/23 Intubation Time: 13:50 Consent: Verbal consent was obtained from patient due to respiratory failure and arrest A pre-procedural Time-Out was completed immediately before starting the procedure and confirmed: Patient Identification, Site, Procedure, Patient Position and the Availability of Requisite Equipment: Yes Sedative: etomidate Mg given: 20 Paralytic: succinylcholine Mg given: 100 Laryngoscope: fiber optic video scope ET tube size: 7.5 Tube secured depth (cm): 22 Tube secured location: lips Tube placement confirmation: visualized tube passing through cords, equal breath sounds bilaterally, no breath sounds over epigastrium and confirmation by capnometry Patient tolerated procedure: well Intubation complications: none Additional comments: ET tube advanced after review of chest x-ray by 3 cm
--- NOTE | 2023-07-15 14:45 | P.PNCROSS_ITS ---
Event Note Event Note Event Note: Patient earlier this morning had increased oxygen requirement and increased work of breathing. I placed patient on BiPAP and she was saturating adequately 80%. On patient's request patient was taken off from BiPAP and placed on air Will by RT and nurse. Within few minutes patient decompensated and desaturated with sats dropping into 70s and low 80s. Patient was placed back on BiPAP but her saturations did not recover adequately. I spoke to the patient and discussed intubation and mechanical ventilation which patient agreed to. We gave patient few minutes to recover and reposition her but it did not help and saturations are not improved. Patient was intubated without any significant complication although despite bagging her sats remained in high 80s or low 90s. We had difficulty getting good saturation and different sites were tried to obtain a good saturation waveform. Post intubation patient became hypotensive IV fluid bolus was started and a Levophed infusion was started. Patient was given 4 mg of Versed for sedation post intubation. Patient never lost her pulse but was significantly hypotensive. Levophed strip would not be started due to malfunction of the pump. NeoSynephrine IV push was not available in ICU pyxis. Due to shock and impending cardiac arrest I gave patient 0.1 mg of epinephrine which help with improvement in blood pressure did cause multiple PVCs but no sustained arrhythmia. Patient was also given bicarbonate IV push x 2 during this. This led to improvement in the blood pressure and later I was able to start Levophed infusion. Chest x-ray was done and ETT was advanced by 3 cm. Patient sedation then wore off and patient workup and desaturated again. Patient was ventilated with Ambu bag and PEEP bowel and given says sedative and a dose of rocuronium. Saturations improved and patient was placed back on the ventilator. Although patient has bibasilar consolidation/atelectasis and appears to have significant COPD and hypoxia has been gradual I would still try to rule out PE once patient is stabilized considering patient is a postop patient and has been in the hospital for many days. Patient continues to desaturate. ABG reviewed which confirmed hypoxia. Ventilator settings were adjusted and tidal volume was decreased to 360 and rate was decreased to 20. ARDS is another possibility. I will plan to prone patient at this time. I have spoken to patient's and other family member at bedside and updated them with patient's status of severe respiratory failure hypoxia sepsis and explained them the patient is currently critical ill with guarded prognosis.. Additional critical Care Time - 90 minutes for the day except separately billed procedures Due to a high probability of clinically significant, life threatening deterioration, the patient required my highest level of preparedness to in tervene emergently and I personally spent this critical care time directly and personally managing the patient. This critical care time included obtaining a history; examining the patient; pulse oximetry; ordering and review of studies; arranging urgent treatment with development of a management plan; evaluation of patient's response to treatment; frequent reassessment; and discussions with other providers. It was exclusive of separately billable procedures and treating other patients and teaching time. Please see Assessment and Plan section and the rest of the note for further information on patient assessment and treatment
[2023-07-15 14:47] LABS: Alveolar/Arterial O2 Gradient 627.6 mmHg; Base Excess ABG 5.3 mEq/l (+/-2.0); Fractional Inspired Oxygen 100 %; HCO3 ABG 28.6 mEq/l (22.0-26.0); Oxygen Content ABG 13.5 %vol (16.0-22.0); PCO2 ABG 37.3 mmHg (35.0-45.0); PO2 FiO2 Ratio Arterial Blood 0.48 %; Total Hemoglobin 11.3 g/dL (12.0-18.0)
[2023-07-15 14:49] LABS: pH ABG 7.503 (7.350-7.450)
[2023-07-15 14:50] LABS: Oxygen Saturation ABG 87.5 % (95.0-100.0); Oxyhemoglobin 85.2 % THb (90.0-100.0); PO2 ABG 48.1 mmHg (80.0-100.0)
[2023-07-15 14:51] LABS: Device VENTILATOR; Modified Allen's Test Pass; Site Drawn RIGHT RADIAL
[2023-07-15 14:53] LABS: Arterial Blood Gas Vent Mode CMV; Arterial Blood Gas Ventilator rate 22 /MIN
[2023-07-15 14:54] LABS: Arterial Blood Gas PEEP 12 cmH2O; Arterial Blood Gas Tidal Volume 400 ml
[2023-07-15] MEDS: RAPID SEQUENCE INTUBATION KIT 1 EACH (15:26)
[2023-07-15] MEDS: MIDAZOLAM 100MG/NS 100ML(*CRX) 100 MG/100 ML BAG (15:28)
[2023-07-15] MEDS: FENTANYL 2,500MCG/NS250ML(*CRX 2,500 MCG/250 ML BAG 50 MCG (15:30)
[2023-07-15] MEDS: NOREPINEPHRINE 8 MG/D5W 250 ML 8 MG/250 ML BAG 18.1 MG (15:32)
[2023-07-15] MEDS: SODIUM BICARBONATE 8.4% 50 MEQ/50 ML SYRINGE (15:33)
[2023-07-15] MEDS: SODIUM CHLORIDE 0.9% IV 1,000 ML 999 ML (15:33)
[2023-07-15] MEDS: SODIUM CHLORIDE 0.9% IV 1,000 ML 999 ML IV CONT (15:34)
[2023-07-15] MEDS: MIDAZOLAM HCL (*CRX) 2 MG/2 ML VIAL 4 MG (15:34)
[2023-07-15] MEDS: LACTATED RINGERS 1,000 ML 999 ML IV CONT (15:35)
[2023-07-15 15:40] LABS: Hematocrit 34.5 % (37.0-47.0); Hemoglobin 10.9 g/dL (12.0-15.0); Mean Corpuscular HGB Conc 31.6 g/dl (32-36); Mean Corpuscular Hemoglobin 29.9 pg (26-34); Mean Corpuscular Volume 94.8 fl (80-100); Mean Platelet Volume 9.8 fl (7.4-10.4); Platelet Count Result 475 k/mm3 (150-375); Red Blood Count 3.64 M/mm3 (4.2-5.4); Red Cell Distribution Width 14.9 % (11.5-14.5); White Blood Count 22.9 K/mm3 (4.5-10.0)
[2023-07-15 15:55] LABS: Lactic Acid Reflex 1.7 mmol/L (0.7-2.0)
[2023-07-15 16:01] LABS: Alanine Aminotransferase 19 U/L (6-35); Albumin Level 2.6 g/dL (3.5-5.1); Alkaline Phosphatase 84 U/L (38-126); Anion Gap 6 mmol/L (8-16); Aspartate Amino Transferase 40 U/L (14-36); Bilirubin,Total 0.6 mg/dL (0.2-1.3); Blood Urea Nitrogen 18 mg/dL (7-17); Calcium 6.9 mg/dL (8.4-10.2); Carbon Dioxide 32 mmol/L (22-30); Chloride 107 mmol/L (98-107); Estimated CRCL calculation 90 ml/min; Estimated Glomerular Filt Rate > 60; Glucose 213 mg/dL (65-110); Magnesium 1.9 mg/dL (1.6-2.3); Potassium 2.7 mmol/L (3.4-5.0); Sodium 145 mmol/L (137-145)
[2023-07-15] MEDS: LACTATED RINGERS 1,000 ML 100 ML IV CONT (16:16)
[2023-07-15] MEDS: ENOXAPARIN 80 MG/0.8 ML SYRINGE 65 MG SUB-Q (16:27)
[2023-07-15] MEDS: KCL 40 MEQ/WATER 100 ML 100 ML 25 ML IVPB (17:16)
[2023-07-15] MEDS: POTASSIUM CHLORIDE 20 MEQ PACKET (FOR LIQUID) 40 MEQ PO (17:17)
--- NOTE | 2023-07-15 17:46 | PC.NURSE ---
at 1400 pt on high flow and oxygen level kept on falling, placed back on bi-pap, resp. therapist here, Dr. Malin in the room, bagging pt and unable to get sats greater 80's, pt intubated sedated, boluses given, levophed started, family aware of status change, labs drawn after and critical sat called to Dr. Malin, pt remains proned at this time, cta scan completed,results called to Kimo Osei. see MAR for all given,
[2023-07-15] MEDS: MINERAL OIL/WHITE PETROLATUM OINTMENT 1 APPLIC EACH EYE (21:00)
[2023-07-15 22:50] LABS: Anion Gap -1 mmol/L (8-16); Blood Urea Nitrogen 15 mg/dL (7-17); Calcium 7.2 mg/dL (8.4-10.2); Carbon Dioxide 36 mmol/L (22-30); Chloride 109 mmol/L (98-107); Estimated CRCL calculation 76 ml/min; Estimated Glomerular Filt Rate > 60; Glucose 158 mg/dL (65-110); Potassium 3.8 mmol/L (3.4-5.0); Sodium 144 mmol/L (137-145)
[2023-07-16] VITALS (53 sets, daily range): BP systolic 86–142; BP diastolic 57–93; PULSE 54–94; RESP 13–26; TEMP 36.6–36.9; O2SAT 95–100; BMI 26.4
--- NOTE | 2023-07-16 | ECHO_ITS ---
Patient Info Name: Norma Steiner Age: 63 years : 1960 Gender: Female Ht: 66 in Wt: 163 lbs BSA: 1.87 m2 HR: 86 bpm BP: 86 / 63 mmHg Heart Rhythm: Sinus Rhythm Technical Quality: Fair Exam Date: 07/16/2023 2:55 PM Exam Location: [facility] Room: ICU2 Patient Status: Inpatient Admit Date: 07/09/2023 Staff Ordering Physician: Gage Malin MD Director Corporate Sales: Nadira Ding RDCS Attending Provider: Tam Chirinos MD Exam Type: CA echo doppler color flow Study Info Indications - SHOCK RESP FAILURE Complete two-dimensional, color flow and Doppler transthoracic echocardiogram is performed with contrast to opacify the left ventricle and to improve the deliniation of the left ventricle endocardial borders. Contrast/Agitated Saline Contrast/Ag. Saline: Definity Amount: 2.00 ml Administered By: Nadira Ding [facility] Existing IV Access: Yes IV Access Condition: patent with no signs of infiltration Summary 1. Left ventricular chamber dimension is normal. 2. Left ventricular systolic function is normal, estimated at 60-65%. 3. There is no increased left ventricular wall thickness. 4. The left ventricular diastolic function is normal. 5. Right ventricular chamber dimension is moderately enlarged. 6. Right ventricular systolic function is reduced. 7. Right atrial chamber dimension is mildly enlarged. 8. There is mild mitral valve regurgitation. 9. There is mild tricuspid valve regurgitation. 10. Moderate pulmonary hypertension, estimated pulmonary arterial systolic pressure is 48 mmHg. Left Ventricle Left ventricular chamber dimension is normal. Left ventricular systolic function is normal, estimated at 60-65%. There is no increased left ventricular wall thickness. The left ventricular diastolic function is normal. Right Ventricle Right ventricular chamber dimension is moderately enlarged. Right ventricular systolic function is reduced. Left Atria Left atrial chamber dimension is normal. Right Atria Right atrial chamber dimension is mildly enlarged. Atrial Septum Intact interatrial septum visualized by color flow imaging. Aortic Valve The aortic valve is not well visualized. There is no aortic valve stenosis. There is trace aortic valve regurgitation. Probably trileaflet. Pulmonic Valve The pulmonic valve is normal. There is no pulmonic valve stenosis. There is trace pulmonic regurgitation. Mitral Valve The mitral valve has normal leaflets. There is no mitral valve stenosis. There is mild mitral valve regurgitation. Tricuspid Valve The tricuspid valve leaflets are normal. There is no significant tricuspid valve stenosis. There is mild tricuspid valve regurgitation. Moderate pulmonary hypertension, estimated pulmonary arterial systolic pressure is 48 mmHg. Inferior Vena Cava Dilated inferior vena cava with <50% collapse upon inspiration consistent with elevated right atrial pressure, 15 mmHg. Aorta The aortic root size at the sinus of Valsalva is normal. Left Ventricular Outflow Tract Name Value Normal LVOT 2D LVOT Diameter 2.0 cm LVOT Doppler LVOT Peak Gradient 5 mmHg LVOT
[2023-07-16 01:18] LABS: Glucose Point of Care 151 mg/dl (65-105)
[2023-07-16] MEDS: NOREPINEPHRINE 8 MG/D5W 250 ML 8 MG/250 ML BAG 20.63 MG IV CONT (02:36)
[2023-07-16] MEDS: IPRATROPIUM BR 0.02% INH SOLN 0.5 MG/2.5 ML VIAL INHALATION ×4 (03:11→20:42)
[2023-07-16] MEDS: ALBUTEROL SULFATE NEB 2.5 MG/3 ML INH INHALATION ×4 (03:12→20:43)
[2023-07-16 05:40] LABS: Alveolar/Arterial O2 Gradient 313.2 mmHg; Base Excess ABG 7.5 mEq/l (+/-2.0); Carboxyhemoglobin 0.3 % THb (0-2.0); Fractional Inspired Oxygen 65 %; HCO3 ABG 33.2 mEq/l (22.0-26.0); Methemoglobin ABG 0.2 %THb (0-1.5); Oxygen Content ABG 22.2 %vol (16.0-22.0); Oxygen Saturation ABG 97.5 % (95.0-100.0); Oxyhemoglobin 96.6 % THb (90.0-100.0); PCO2 ABG 49.9 mmHg (35.0-45.0); PO2 FiO2 Ratio Arterial Blood 1.48 %; Reduced Hemoglobin 2.9 %THb (0-5.0); Total Hemoglobin 16.3 g/dL (12.0-18.0); pH ABG 7.441 (7.350-7.450)
[2023-07-16 05:42] LABS: Device VENTILATOR; Modified Allen's Test Pass; Site Drawn RIGHT RADIAL
[2023-07-16 05:46] LABS: Arterial Blood Gas PEEP 14 cmH2O; Arterial Blood Gas Tidal Volume 360 ml; Arterial Blood Gas Vent Mode CMV; Arterial Blood Gas Ventilator rate 20 /MIN
[2023-07-16 06:00] LABS: Basophils Absolute Auto 0.1 K/mm3 (0.0-0.1); Basophils Percent Auto 0.3 % (0.2-1.2); Eosinophils Absolute Auto 0.1 K/mm3 (0-0.3); Eosinophils Percent Auto 0.6 % (0-4.4); Hematocrit 34.1 % (37.0-47.0); Hemoglobin 10.8 g/dL (12.0-15.0); Immature Granulocyte Absolute 0.19 K/mm3 (0.00-0.031); Immature Granulocyte Percent A 1.1 % (0-0.5); Lymphocytes Absolute Auto 2.62 K/mm3 (0.9-3.2); Lymphocytes Percent Auto 14.8 % (18.3-44.2); Mean Corpuscular HGB Conc 31.7 g/dl (32-36); Mean Corpuscular Hemoglobin 30.6 pg (26-34); Mean Corpuscular Volume 96.6 fl (80-100); Mean Platelet Volume 9.5 fl (7.4-10.4); Monocytes Absolute Auto 0.9 K/mm3 (0.1-0.6); Neutrophils Absolute Auto 13.8 K/mm3 (1.3-6.7); Neutrophils Percent Auto 78.2 % (45.5-73.1); Platelet Count Result 442 k/mm3 (150-375); Red Blood Count 3.53 M/mm3 (4.2-5.4); White Blood Count 17.7 K/mm3 (4.5-10.0)
[2023-07-16 06:11] LABS: Alanine Aminotransferase 18 U/L (6-35); Albumin Level 2.5 g/dL (3.5-5.1); Alkaline Phosphatase 77 U/L (38-126); Anion Gap 0 mmol/L (8-16); Aspartate Amino Transferase 34 U/L (14-36); Bilirubin,Total 0.4 mg/dL (0.2-1.3); Blood Urea Nitrogen 16 mg/dL (7-17); Calcium 7.6 mg/dL (8.4-10.2); Carbon Dioxide 36 mmol/L (22-30); Chloride 110 mmol/L (98-107); Estimated CRCL calculation 76 ml/min; Estimated Glomerular Filt Rate > 60; Glucose 128 mg/dL (65-110); Phosphorus 2.5 mg/dL (2.5-4.5); Potassium 3.7 mmol/L (3.4-5.0); Sodium 146 mmol/L (137-145); Triglycerides 125 mg/dL (<150)
[2023-07-16] MEDS: PIPERACILLN/TAZ 3.375GM/NS50ML 3.375 GM/50 ML BAG IVPB ×4 (06:14→23:55)
[2023-07-16] MEDS: CENTRAL LINE FLUSH 10 ML IV PUSH ×3 (06:15→21:11)
[2023-07-16] MEDS: metroNIDAZOLE 500 MG/ISO 100ML 500 MG/100 ML BAG 100 MG IVPB ×3 (06:15→21:11)
[2023-07-16] MEDS: LACTATED RINGERS 1,000 ML 100 ML IV CONT (07:49)
[2023-07-16] MEDS: BUDESONIDE RESPULE NEB 0.5 MG/2 ML AMP INHALATION ×2 (07:59→20:43)
[2023-07-16] MEDS: MINERAL OIL/WHITE PETROLATUM OINTMENT 1 APPLIC EACH EYE ×2 (08:58→20:56)
[2023-07-16] MEDS: ENOXAPARIN 40 MG/0.4 ML SYRINGE SUB-Q (08:58)
[2023-07-16] MEDS: VANCOMYCIN 1,250 MG/NS 250 ML 1,250 MG/250 ML BAG 166.67 MG IVPB (08:58)
[2023-07-16] MEDS: PANTOPRAZOLE SODIUM IV 40 MG VIAL IV PUSH (08:59)
[2023-07-16] MEDS: MIDAZOLAM 100MG/NS 100ML(*CRX) 100 MG/100 ML BAG IV CONT (09:20)
[2023-07-16] MEDS: POTASSIUM CHLORIDE INJ 40 MEQ in DEXTROSE 5% IN WATER 500 ML 130 MEQ IVPB (10:01)
[2023-07-16 11:41] LABS: Glucose Point of Care 160 mg/dl (65-105)
[2023-07-16] MEDS: ALBUMIN HUMAN 25% 25 GM/100 ML 100 ML IVPB ×2 (13:02→17:51)
[2023-07-16] MEDS: VASOPRESSIN INJ 100 UNITS in DEXTROSE 5% 95 ML IV CONT (13:02)
[2023-07-16] MEDS: HYDROCORTISONE SODIUM SUCCINATE 100 MG/2 ML VIAL IV PUSH ×2 (13:03→21:11)
--- NOTE | 2023-07-16 13:17 | PM.PNGS ---
Progress Note: A&P Assessment and Plan (1) Diverticulitis large intestine: Qualifiers: Diverticulitis bleeding: without bleeding Diverticulitis complication: with perforation and abscess Qualified Code(s): K57.20 - Diverticulitis of large intestine with perforation and abscess without bleeding Code(s): K57.32 - Diverticulitis of large intestine without perforation or abscess without bleeding Status: Acute Assessment and Plan: Ostomy functioning well. Continue NG while intubated, trickle tube feedings started today. Continue IV antibiotics. Pathology showed perforated diverticulitis, no malignancy (2) Acute respiratory failure: Code(s): J96.00 - Acute respiratory failure, unspecified whether with hypoxia or hypercapnia Status: Acute Assessment and Plan: Likely multifactorial. Patient now intubated and sedated. CTA negative for PE, suggesting pneumonia and atelectasis. Continue as per Mystery [employer]pper (3) Shock: Code(s): R57.9 - Shock, unspecified Status: Acute Assessment and Plan: Patient became hypotensive following intubation, and she is now on norepinephrine infusion. WBC count trending down and she is afebrile. CTA showed intraabdominal fluid collections that could be related to the surgery/irrigation, continue to monitor for more signs of infection. Wean vasopressors as tolerated. Continue broad-spectrum IV antibiotics and critical care management. (4) Pneumonia: Code(s): J18.9 - Pneumonia, unspecified organism Status: Acute Assessment and Plan: Continue IV antibiotics (5) COPD (chronic obstructive pulmonary disease): Code(s): J44.9 - Chronic obstructive pulmonary disease, unspecified Status: Acute (6) Tobacco use: Code(s): Z72.0 - Tobacco use Status: Acute Plan I have discussed the patient's case and plan of care with Dr. Reynolds. Subjective Subjective Date/Time Seen: 07/16/23 10:17 Patient reports: afebrile Interval history: Patient's respiratory status declined yesterday and she was ultimately intubated. Her oxygenation requirements went up drastically and she required proning last night. After intubation, she also became hypotensive and was started on norepinephrine infusion. She was no longer requiring proning this morning when I saw her. She had a CTA chest/abdomen/pelvis that ruled out PE. She is now seen in the ICU with her [id number] at the bedside. She is intubated and the nurse is at the bedside as well. They started trickle tube feedings today. Her ostomy has been functioning with formed stool coming into the bag. Wound care came by right before my assessment and changed her bag. Review of Systems Review of Systems: ROS unobtainable: Yes unobtainable due to endotracheal tube Exam Const: General: ill appearing acutely Other: intubated and sedated in the ICU Resp: Effort & Inspection: abnormal respiratory pattern (on mechanical ventilatory, sedated) Cardio: Rate: regular rate Rhythm: regular rhythm GI: Inspection: non-distended and other (left-sided ostomy with new clean bag in place, stoma pink and healthy) GI Palp: Yes Soft to palpation and Yes Other GI palpation findings present (exam limited as she is sedated/intubated) Auscultation: normal bowel sounds Urinary Catheter: Urinary Catheter: patent and draining and urine dark Extrem: General: edema (mild bilateral pedal edema) Objective Data Vital Signs Vital Signs: Vital Signs - 24 hr 07/15/23 14:00 07/15/23 14:50 07/15/23 15:28 Temperature Pulse Rate 105 H 108 H 106 H Respiratory Rate 20 Blood Pressure Pulse Oximetry 85 L 89 L Oxygen Delivery Mechanical Ventilation Mechanical Ventilation Fraction of Inspired Oxygen 100 100 07/15/23 15:30 07/15/23 15:32 07/15/23 14:00 Temperature Pulse Rate 106 H 106 H 101 H Respiratory Rate 21 H 21 H Blood Pressure 142/78 H Pulse Oximetry 90
[2023-07-16] MEDS: NOREPINEPHRINE 8 MG/D5W 250 ML 8 MG/250 ML BAG 24.38 MG IV CONT (13:19)
[2023-07-16] MEDS: FENTANYL 2,500MCG/NS250ML(*CRX 2,500 MCG/250 ML BAG 12.5 MCG IV CONT (13:36)
[2023-07-16] MEDS: PERFLUTREN LIPID MICROSPHERES 1.5 ML VIAL DILUTED TO 10 ML TOTAL VOLUME IV PUSH (14:45)
--- NOTE | 2023-07-16 16:39 | IVDEFINITY ---
Prior to administration of IV Definity the patient was educated on the risks and benefits of the imaging enhancing agent including potential adverse side effects. The patient verbalized understanding. Allergies were verified. No exclusion criteria were identified and at least one of the following inclusion criteria were met: 1) physician request, 2) patient technically difficult to image (per the [place] [employer] guidelines of two or more segments not discernable within the apical view), or 3) questionable left ventricular function. ?
[2023-07-17] VITALS (38 sets, daily range): BP systolic 91–128; BP diastolic 55–76; PULSE 54–84; RESP 16–23; TEMP 36–37; O2SAT 92–100
[2023-07-17] MEDS: ALBUMIN HUMAN 25% 25 GM/100 ML 100 ML IVPB ×4 (00:32→17:21)
[2023-07-17 00:38] LABS: Glucose Point of Care 188 mg/dl (65-105)
[2023-07-17] MEDS: ALBUTEROL SULFATE NEB 2.5 MG/3 ML INH INHALATION ×4 (02:15→20:12)
[2023-07-17] MEDS: IPRATROPIUM BR 0.02% INH SOLN 0.5 MG/2.5 ML VIAL INHALATION ×4 (02:15→20:11)
[2023-07-17 03:56] LABS: Vancomycin Trough 13.2 ug/mL (10.0-20.0)
[2023-07-17] MEDS: VANCOMYCIN 1,000 MG/NS 250 ML 1,000 MG/250 ML BAG 250 MG IVPB ×2 (04:24→16:05)
[2023-07-17 04:38] LABS: Hematocrit 28.2 % (37.0-47.0); Hemoglobin 8.6 g/dL (12.0-15.0); Mean Corpuscular HGB Conc 30.5 g/dl (32-36); Mean Corpuscular Hemoglobin 30.6 pg (26-34); Mean Corpuscular Volume 100.4 fl (80-100); Mean Platelet Volume 10.1 fl (7.4-10.4); Platelet Count Result 295 k/mm3 (150-375); Red Blood Count 2.81 M/mm3 (4.2-5.4); Red Cell Distribution Width 15.2 % (11.5-14.5); White Blood Count 11.1 K/mm3 (4.5-10.0)
[2023-07-17 05:23] LABS: Alanine Aminotransferase 16 U/L (6-35); Albumin Level 3.3 g/dL (3.5-5.1); Alkaline Phosphatase 56 U/L (38-126); Anion Gap 4 mmol/L (8-16); Aspartate Amino Transferase 42 U/L (14-36); Bilirubin,Total 0.4 mg/dL (0.2-1.3); Blood Urea Nitrogen 22 mg/dL (7-17); Calcium 8.4 mg/dL (8.4-10.2); Carbon Dioxide 35 mmol/L (22-30); Chloride 107 mmol/L (98-107); Estimated CRCL calculation 44 ml/min; Estimated Glomerular Filt Rate 50; Glucose 169 mg/dL (65-110); Magnesium 2.1 mg/dL (1.6-2.3); Phosphorus 3.5 mg/dL (2.5-4.5); Potassium 3.9 mmol/L (3.4-5.0); Sodium 146 mmol/L (137-145)
[2023-07-17] MEDS: PIPERACILLN/TAZ 3.375GM/NS50ML 3.375 GM/50 ML BAG IVPB ×3 (05:35→17:21)
[2023-07-17 05:44] LABS: Alveolar/Arterial O2 Gradient 192.6 mmHg; Base Excess ABG 5.2 mEq/l (+/-2.0); Carboxyhemoglobin 0.2 % THb (0-2.0); Fractional Inspired Oxygen 45 %; HCO3 ABG 30.2 mEq/l (22.0-26.0); Methemoglobin ABG 0.1 %THb (0-1.5); Oxygen Content ABG 12.8 %vol (16.0-22.0); Oxygen Saturation ABG 95.3 % (95.0-100.0); Oxyhemoglobin 93.8 % THb (90.0-100.0); PCO2 ABG 46.8 mmHg (35.0-45.0); PO2 FiO2 Ratio Arterial Blood 1.67 %; Reduced Hemoglobin 5.9 %THb (0-5.0); Total Hemoglobin 9.6 g/dL (12.0-18.0); pH ABG 7.428 (7.350-7.450)
[2023-07-17 05:45] LABS: Arterial Blood Gas Vent Mode CMV; Arterial Blood Gas Ventilator rate 20 /MIN; Device VENTILATOR; Modified Allen's Test Unable to perform; Site Drawn RIGHT RADIAL
[2023-07-17 05:46] LABS: Arterial Blood Gas PEEP 14 cmH2O; Arterial Blood Gas Tidal Volume 360 ml
[2023-07-17] MEDS: HYDROCORTISONE SODIUM SUCCINATE 100 MG/2 ML VIAL IV PUSH ×3 (06:06→21:38)
[2023-07-17] MEDS: CENTRAL LINE FLUSH 10 ML IV PUSH ×3 (06:07→21:38)
[2023-07-17] MEDS: metroNIDAZOLE 500 MG/ISO 100ML 500 MG/100 ML BAG 100 MG IVPB ×3 (06:07→21:38)
[2023-07-17] MEDS: BUDESONIDE RESPULE NEB 0.5 MG/2 ML AMP INHALATION ×2 (08:02→20:12)
[2023-07-17] MEDS: ENOXAPARIN 40 MG/0.4 ML SYRINGE SUB-Q (08:35)
[2023-07-17] MEDS: MINERAL OIL/WHITE PETROLATUM OINTMENT 1 APPLIC EACH EYE ×2 (08:35→21:38)
[2023-07-17] MEDS: PANTOPRAZOLE SODIUM IV 40 MG VIAL IV PUSH (08:35)
--- NOTE | 2023-07-17 08:46 | PM.PNGS ---
Progress Note: A&P Assessment and Plan (1) Diverticulitis large intestine: Qualifiers: Diverticulitis bleeding: without bleeding Diverticulitis complication: with perforation and abscess Qualified Code(s): K57.20 - Diverticulitis of large intestine with perforation and abscess without bleeding Code(s): K57.32 - Diverticulitis of large intestine without perforation or abscess without bleeding Status: Acute Assessment and Plan: Ostomy with minimal output since yesterday AM. Will start MiraLax per tube daily. Continue tube feeds as tolerated Continue IV antibiotics. Pathology showed perforated diverticulitis, no malignancy (2) Acute respiratory failure: Code(s): J96.00 - Acute respiratory failure, unspecified whether with hypoxia or hypercapnia Status: Acute Assessment and Plan: Likely multifactorial. Patient now intubated and sedated. CTA negative for PE, suggesting pneumonia and atelectasis. Continue as per Orderlies Teacher (3) Shock: Code(s): R57.9 - Shock, unspecified Status: Acute Assessment and Plan: Patient became hypotensive following intubation, and she is now on norepinephrine infusion but weaning down. Wean vasopressors as tolerated. Continue broad-spectrum IV antibiotics and critical care management. (4) Pneumonia: Code(s): J18.9 - Pneumonia, unspecified organism Status: Acute Assessment and Plan: Continue IV antibiotics (5) COPD (chronic obstructive pulmonary disease): Code(s): J44.9 - Chronic obstructive pulmonary disease, unspecified Status: Acute (6) Tobacco use: Code(s): Z72.0 - Tobacco use Status: Acute Subjective Subjective Date/Time Seen: 07/17/23 08:46 Interval history: Doing a little better today. Levophed weaned down. Awake and responding to questions appropriately. Afebrile. Exam Cardio: Rate: regular rate Rhythm: regular rhythm GI: Inspection: non-distended and other (left-sided ostomy with new clean bag in place, stoma pink and healthy) GI Palp: Yes Soft to palpation Auscultation: normal bowel sounds Urinary Catheter: Urinary Catheter: patent and draining and urine clear Objective Data Vital Signs Vital Signs: Vital Signs - 24 hr 07/16/23 09:20 07/16/23 10:00 07/16/23 10:00 Temperature Pulse Rate 94 86 86 Respiratory Rate 20 24 H Blood Pressure 86/63 L Pulse Oximetry 97 Oxygen Delivery Fraction of Inspired Oxygen 07/16/23 11:45 07/16/23 12:00 07/16/23 12:00 Temperature 36.8 C Pulse Rate 76 76 76 Respiratory Rate 19 19 Blood Pressure 102/64 Pulse Oximetry 95 95 Oxygen Delivery Mechanical Ventilation Fraction of Inspired Oxygen 65 07/16/23 12:00 07/16/23 12:00 07/16/23 12:00 Temperature Pulse Rate 76 74 Respiratory Rate 19 Blood Pressure 92/62 L Pulse Oximetry 95 Oxygen Delivery Fraction of Inspired Oxygen 65 65 07/16/23 11:38 07/16/23 13:02 07/16/23 13:19 Temperature Pulse Rate 75 74 74 Respiratory Rate Blood Pressure 92/65 L 89/64 L Pulse Oximetry 97 Oxygen Delivery Mechanical Ventilation Fraction of Inspired Oxygen 60 07/16/23 13:19 07/16/23 13:36 07/16/23 13:55 Temperature Pulse Rate 74 76 73 Respiratory Rate 21 H 20 Blood Pressure 89/64 L Pulse Oximetry Oxygen Delivery Fraction of Inspired Oxygen 07/16/23 14:00 07/16/23 14:00 07/16/23 14:00 Temperature Pulse Rate 76 73 79 Respiratory Rate 22 H 22 H Blood Pressure 110/93 H Pulse Oximetry 99 99 Oxygen Delivery Fraction of Inspired Oxygen 60 07/16/23 14:30 07/16/23 15:00 07/16/23 15:53 Temperature Pulse Rate 74 72 70 Respiratory Rate Blood Pressure 133/89 133/77 131/73 Pulse Oximetry Oxygen Delivery Fraction of Inspired Oxygen 07/16/23 16:54 07/16/23 16:55 07/16/23 16:00 Temperature Pulse Rate 66 69 69 Respiratory Rate 20 Blood Pressure 123/71
--- NOTE | 2023-07-17 09:28 | WPDINTPN ---
Progress Note: A&P Assessment and Plan (1) Acute respiratory failure: Code(s): J96.00 - Acute respiratory failure, unspecified whether with hypoxia or hypercapnia Status: Acute Assessment and Plan: Patient does have history of COPD but appears to be having multifactorial acute respiratory failure secondary to pneumonia. Postop patient was on BiPAP and was then transitioned to Airvo. She initially tolerated Airvo for 24 hours but then deteriorated requiring intubation on 07/15. Post intubation patient remained hypoxic and had to be sedated paralyzed and placed in prone position CTA lung 1. No pulmonary embolus identified. 2. Airspace opacities of the lower lobes and lingula, left greater than right, consistent with pneumonia and atelectasis. 3. Persistent intraperitoneal fluid in the bilateral pericolic gutters and pelvis, postoperative versus abscess. Chest x-ray ABG and vent settings reviewed Decrease PEEP to 12 at this time and will try to wean it down to 10 if possible later in the day FiO2 currently at 30% Continue Zosyn Flagyl and vancomycin Continue bronchodilators (2) COPD (chronic obstructive pulmonary disease): Code(s): J44.9 - Chronic obstructive pulmonary disease, unspecified Status: Acute Assessment and Plan: See above (3) Pneumonia: Code(s): J18.9 - Pneumonia, unspecified organism Status: Acute Assessment and Plan: See above (4) Perforation of sigmoid colon due to diverticulitis: Code(s): K57.20 - Diverticulitis of large intestine with perforation and abscess without bleeding Status: Acute Assessment and Plan: Status post exploratory laparotomy drainage of abscess and colostomy Discussed with general surgery Continue tube feeds at 20 mL/hour (5) Intra-abdominal abscess: Code(s): K65.1 - Peritoneal abscess Status: Acute Assessment and Plan: Discussed with general surgery. Surgeon believes the fluid in the abdomen is from the washout and third-spacing. (6) Left hip pain: Code(s): M25.552 - Pain in left hip Status: Acute Assessment and Plan: Patient has chronic left hip pain. 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 This is likely multifactorial secondary to sepsis, positive pressure ventilation and sedation. Lactic acid level was normal and she has been afebrile. Vancomycin was added to the antibiotic coverage She was given additional 2 L bolus and started on IV fluids infusion which I will discontinue now Vasopressors have been weaned off. Monitor and continue Levophed titration to maintain mean arterial pressure (9) Sepsis: Code(s): A41.9 - Sepsis, unspecified organism Status: Acute Assessment and Plan: WBC improving. Afebrile Hemodynamics improved Antibiotics as above Cultures negative as of now Plan DVT prophylaxis -Lovenox Stress ulcer prophylaxis -Protonix Nutrition -patient will be started on tube feeds Code Status - Full Code Total Critical Care Time - 33 minutes Due to a high probability of clinically significant, life threatening deterioration, the patient required my highest level of preparedness to intervene emergently and I personally spent this critical care time directly and personally managing the patient. This critical care time included obtaining a history; examining the patient; pulse oximetry; ordering and review of studies; arranging urgent treatment with development of a management plan; evaluation of patient's response to treatment; frequent
--- NOTE | 2023-07-17 10:49 | PCNFU ---
Nutrition Follow-Up Complete: Inadequate energy intake related to NPO status as evidenced by current diet orders Goal: Meet estimated needs Patient is progressing towards goal. We will continue current goal. Pt current nutrition is Vital AF 1.2 at 20 ml/hr. Nutrition recommendation: Recommend goal rate at 55 ml/hr. Last recorded weight is 74.3 kg,up from 64.4 kg on admit. Bowel Motility:Last reported BM 07/14 Labs Reviewed:Glu 169, BUN 22, Cr 1.10,Na 146, Alb 3.3,Hct 28.2,Hgb 8.6 Meds Noted:Miralax, Versed, Fentanyl, Protonix, Lovenox,Zosyn. Skin:WNL Additional Notes: Patient remains on mechanical vent. Tube feedings are currently at 20 ml/hr of Vital AF 1.2 and tolerating per nursing. Recommend goal rate of Vital AF 1.2 at 55 ml/hr, providing 1425 kcals/90 gms protein/981 ml water. Flush 30 ml q 4 hours. Agree with diet orders. Monitor tube feeding tolerance, rate, wt, labs. Follow up daily in ICU rounds, reassess every Thursday and Thursday.
[2023-07-17] MEDS: polyethylene glycoL 3350 17 GM POWD.PACK FEED TUBE (11:10)
[2023-07-17 12:10] LABS: Glucose Point of Care 159 mg/dl (65-105)
[2023-07-17] MEDS: FENTANYL 2,500MCG/NS250ML(*CRX 2,500 MCG/250 ML BAG 12.5 MCG IV CONT (12:37)
[2023-07-17] MEDS: MIDAZOLAM 100MG/NS 100ML(*CRX) 100 MG/100 ML BAG IV CONT (16:12)
[2023-07-17 17:12] LABS: Glucose Point of Care 139 mg/dl (65-105)
[2023-07-18] VITALS (38 sets, daily range): BP systolic 107–138; BP diastolic 60–74; PULSE 55–129; RESP 11–23; TEMP 36.6–37.3; O2SAT 90–96
[2023-07-18] MEDS: PIPERACILLN/TAZ 3.375GM/NS50ML 3.375 GM/50 ML BAG IVPB ×2 (00:43→05:26)
[2023-07-18] MEDS: ALBUMIN HUMAN 25% 25 GM/100 ML 100 ML IVPB ×2 (00:44→05:25)
[2023-07-18 01:05] LABS: Glucose Point of Care 153 mg/dl (65-105)
[2023-07-18] MEDS: IPRATROPIUM BR 0.02% INH SOLN 0.5 MG/2.5 ML VIAL INHALATION ×4 (02:00→19:57)
[2023-07-18] MEDS: ALBUTEROL SULFATE NEB 2.5 MG/3 ML INH INHALATION ×4 (02:00→19:57)
[2023-07-18] MEDS: VANCOMYCIN 1,000 MG/NS 250 ML 1,000 MG/250 ML BAG 250 MG IVPB ×2 (05:20→16:53)
[2023-07-18] MEDS: metroNIDAZOLE 500 MG/ISO 100ML 500 MG/100 ML BAG 100 MG IVPB ×3 (05:21→21:44)
[2023-07-18] MEDS: HYDROCORTISONE SODIUM SUCCINATE 100 MG/2 ML VIAL IV PUSH (05:25)
[2023-07-18] MEDS: CENTRAL LINE FLUSH 10 ML IV PUSH ×3 (05:27→21:44)
[2023-07-18 05:29] LABS: Alveolar/Arterial O2 Gradient 217.1 mmHg; Base Excess ABG 4.3 mEq/l (+/-2.0); Carboxyhemoglobin 0.1 % THb (0-2.0); Fractional Inspired Oxygen 45 %; HCO3 ABG 28.7 mEq/l (22.0-26.0); Methemoglobin ABG 0.3 %THb (0-1.5); Oxygen Content ABG 11.3 %vol (16.0-22.0); PCO2 ABG 42.6 mmHg (35.0-45.0); PO2 ABG 55.3 mmHg (80.0-100.0); PO2 FiO2 Ratio Arterial Blood 1.23 %; Reduced Hemoglobin 11.9 %THb (0-5.0); Total Hemoglobin 9.1 g/dL (12.0-18.0); pH ABG 7.447 (7.350-7.450)
[2023-07-18 05:30] LABS: Oxyhemoglobin 87.7 % THb (90.0-100.0)
[2023-07-18 05:31] LABS: Device VENTILATOR; Modified Allen's Test Unable to perform; Site Drawn RIGHT RADIAL
[2023-07-18 05:32] LABS: Arterial Blood Gas PEEP 10 cmH2O; Arterial Blood Gas Tidal Volume 360 ml; Arterial Blood Gas Vent Mode CMV; Arterial Blood Gas Ventilator rate 20 /MIN
[2023-07-18] MEDS: FENTANYL 2,500MCG/NS250ML(*CRX 2,500 MCG/250 ML BAG 17.5 MCG IV CONT ×2 (05:44→18:30)
[2023-07-18 05:54] LABS: Hematocrit 26.2 % (37.0-47.0); Mean Corpuscular HGB Conc 30.5 g/dl (32-36); Mean Corpuscular Hemoglobin 30.5 pg (26-34); Mean Platelet Volume 10.3 fl (7.4-10.4); Platelet Count Result 331 k/mm3 (150-375); Red Blood Count 2.62 M/mm3 (4.2-5.4); Red Cell Distribution Width 14.9 % (11.5-14.5); White Blood Count 14.2 K/mm3 (4.5-10.0)
[2023-07-18 06:11] LABS: Alanine Aminotransferase 17 U/L (6-35); Albumin Level 3.6 g/dL (3.5-5.1); Alkaline Phosphatase 45 U/L (38-126); Anion Gap 8 mmol/L (8-16); Aspartate Amino Transferase 32 U/L (14-36); Bilirubin,Total 0.5 mg/dL (0.2-1.3); Blood Urea Nitrogen 26 mg/dL (7-17); Calcium 8.3 mg/dL (8.4-10.2); Carbon Dioxide 30 mmol/L (22-30); Chloride 109 mmol/L (98-107); Estimated CRCL calculation 44 ml/min; Estimated Glomerular Filt Rate 50; Glucose 171 mg/dL (65-110); Magnesium 2.1 mg/dL (1.6-2.3); Phosphorus 2.1 mg/dL (2.5-4.5); Potassium 2.5 mmol/L (3.4-5.0); Sodium 147 mmol/L (137-145)
[2023-07-18] MEDS: BUDESONIDE RESPULE NEB 0.5 MG/2 ML AMP INHALATION ×2 (06:59→19:58)
[2023-07-18] MEDS: POTASSIUM CHLORIDE 20 MEQ PACKET (FOR LIQUID) 40 MEQ FEED TUBE (08:46)
[2023-07-18] MEDS: POTASSIUM PHOS,M-BASIC-D-BASIC 20 MMOL in SODIUM CHLORIDE 0.9% IV 250 ML 64.17 MMOL IVPB (08:46)
--- NOTE | 2023-07-18 09:09 | WPDINTPN ---
Progress Note: A&P Assessment and Plan (1) Acute respiratory failure: Code(s): J96.00 - Acute respiratory failure, unspecified whether with hypoxia or hypercapnia Status: Acute Assessment and Plan: Patient does have history of COPD but appears to be having multifactorial acute respiratory failure secondary to pneumonia. Postop patient was on BiPAP and was then transitioned to Airvo. She initially tolerated Airvo for 24 hours but then deteriorated requiring intubation on 07/15. Post intubation patient remained hypoxic and had to be sedated paralyzed and placed in prone position CTA lung 1. No pulmonary embolus identified. 2. Airspace opacities of the lower lobes and lingula, left greater than right, consistent with pneumonia and atelectasis. 3. Persistent intraperitoneal fluid in the bilateral pericolic gutters and pelvis, postoperative versus abscess. Chest x-ray ABG and vent settings reviewed Continue FiO2 of 45% and peep of 10. Will try to wean FiO2 if possible Continue Zosyn Flagyl and vancomycin Continue bronchodilators (2) COPD (chronic obstructive pulmonary disease): Code(s): J44.9 - Chronic obstructive pulmonary disease, unspecified Status: Acute Assessment and Plan: See above (3) Pneumonia: Code(s): J18.9 - Pneumonia, unspecified organism Status: Acute Assessment and Plan: See above (4) Perforation of sigmoid colon due to diverticulitis: Code(s): K57.20 - Diverticulitis of large intestine with perforation and abscess without bleeding Status: Acute Assessment and Plan: Status post exploratory laparotomy drainage of abscess and colostomy Ostomy management per general surgery Continue tube feeds at 20 mL/hour Will advance if okay with General surgery (5) Intra-abdominal abscess: Code(s): K65.1 - Peritoneal abscess Status: Acute Assessment and Plan: Discussed with general surgery. Surgeon believes the fluid in the abdomen is from the washout and third-spacing. (6) Left hip pain: Code(s): M25.552 - Pain in left hip Status: Acute Assessment and Plan: Patient has chronic left hip pain. 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 This is likely multifactorial secondary to sepsis, positive pressure ventilation and sedation. Lactic acid level was normal and she has been afebrile. Vancomycin was added to the antibiotic coverage She was given additional 2 L bolus and started on IV fluids infusion which I will discontinue now Vasopressors have been weaned off. Monitor and continue Levophed titration to maintain mean arterial pressure Wean off hydrocortisone Discontinue albumin (9) Sepsis: Code(s): A41.9 - Sepsis, unspecified organism Status: Acute Assessment and Plan: WBC have improved overall Afebrile Hemodynamics improved Antibiotics as above Cultures negative as of now Plan DVT prophylaxis -Lovenox Stress ulcer prophylaxis -Protonix Nutrition -continue tube feeds Code Status - Full Code I spoke to and updated patient's daughter at bedside and answered all her questions Total Critical Care Time - 30 minutes Due to a high probability of clinically significant, life threatening deterioration, the patient required my highest level of preparedness to intervene emergently and I personally spent this critical care time directly and personally managing the patient. This critical care time included obtaining a history; examining the patient; pulse oximetry; ordering and
[2023-07-18] MEDS: MINERAL OIL/WHITE PETROLATUM OINTMENT 1 APPLIC EACH EYE ×2 (09:29→20:18)
[2023-07-18] MEDS: PANTOPRAZOLE SODIUM IV 40 MG VIAL IV PUSH (09:29)
[2023-07-18] MEDS: polyethylene glycoL 3350 17 GM POWD.PACK FEED TUBE (09:29)
[2023-07-18] MEDS: ENOXAPARIN 40 MG/0.4 ML SYRINGE SUB-Q (09:29)
--- NOTE | 2023-07-18 11:35 | PM.PNGS ---
Progress Note: A&P Assessment and Plan (1) Diverticulitis large intestine: Qualifiers: Diverticulitis bleeding: without bleeding Diverticulitis complication: with perforation and abscess Qualified Code(s): K57.20 - Diverticulitis of large intestine with perforation and abscess without bleeding Code(s): K57.32 - Diverticulitis of large intestine without perforation or abscess without bleeding Status: Acute Assessment and Plan: Continue MiraLax daily per tube Continue tube feeds, advance to goal Continue IV antibiotics. Pathology showed perforated diverticulitis, no malignancy (2) Acute respiratory failure: Code(s): J96.00 - Acute respiratory failure, unspecified whether with hypoxia or hypercapnia Status: Acute Assessment and Plan: Likely multifactorial. Patient now intubated and sedated. CTA negative for PE, suggesting pneumonia and atelectasis. Continue as per Card Clothier (3) Shock: Code(s): R57.9 - Shock, unspecified Status: Acute Assessment and Plan: Resolving (4) Pneumonia: Code(s): J18.9 - Pneumonia, unspecified organism Status: Acute Assessment and Plan: Continue IV antibiotics (5) COPD (chronic obstructive pulmonary disease): Code(s): J44.9 - Chronic obstructive pulmonary disease, unspecified Status: Acute (6) Tobacco use: Code(s): Z72.0 - Tobacco use Status: Acute Subjective Subjective Date/Time Seen: 07/18/23 11:35 Interval history: No abdominal pain. Remains intubated. Ostomy functioning. Minimal drainage at midline incision reported by nurse. Exam Cardio: Rate: regular rate Rhythm: regular rhythm GI: Inspection: non-distended, incision (minimal serous drainage from umbilical area) and other (left-sided ostomy, stoma pink and healthy, stool in bag) GI Palp: Yes Soft to palpation Auscultation: normal bowel sounds Urinary Catheter: Urinary Catheter: patent and draining and urine clear Objective Data Vital Signs Vital Signs: Vital Signs - 24 hr 07/17/23 12:00 07/17/23 12:00 07/17/23 12:00 Temperature 36.1 C L Pulse Rate 61 61 Respiratory Rate 20 Blood Pressure 110/58 L Pulse Oximetry 96 Oxygen Delivery Fraction of Inspired Oxygen 40 07/17/23 12:00 07/17/23 12:22 07/17/23 12:37 Temperature Pulse Rate 61 56 L 67 Respiratory Rate 20 20 20 Blood Pressure Pulse Oximetry 96 Oxygen Delivery Mechanical Ventilation Fraction of Inspired Oxygen 40 07/17/23 12:39 07/17/23 14:05 07/17/23 14:08 Temperature Pulse Rate 67 72 82 Respiratory Rate 20 20 Blood Pressure Pulse Oximetry 94 Oxygen Delivery Mechanical Ventilation Fraction of Inspired Oxygen 40 07/17/23 14:11 07/17/23 14:00 07/17/23 14:00 Temperature Pulse Rate 77 82 78 Respiratory Rate 21 H 20 Blood Pressure 109/60 Pulse Oximetry 95 Oxygen Delivery Fraction of Inspired Oxygen 07/17/23 16:12 07/17/23 16:12 07/17/23 16:00 Temperature Pulse Rate 77 77 62 Respiratory Rate 21 H 21 H Blood Pressure Pulse Oximetry Oxygen Delivery Fraction of Inspired Oxygen 07/17/23 16:00 07/17/23 16:00 07/17/23 16:00 Temperature 36.7 C Pulse Rate 62 77 Respiratory Rate 20 21 H Blood Pressure 118/60 Pulse Oximetry 96 96 Oxygen Delivery Mechanical Ventilation Fraction of Inspired Oxygen 40 40 07/17/23 16:54 07/17/23 18:00 07/17/23 18:00 Temperature Pulse Rate 62 68 74 Respiratory Rate 17 Blood Pressure 121/69 Pulse Oximetry 96 96 Oxygen Delivery Mechanical Ventilation Fraction of Inspired Oxygen 40 07/17/23 20:12 07/17/23 20:00 07/17/23 20:21 Temperature Pulse Rate 72 73 75 Respiratory Rate 20 20 Blood Pressure Pulse Oximetry 95 Oxygen Delivery Mechanical Ventilation Fraction of Inspired Oxygen 40 07/17/23 20:01 07/17/23 20:00 07/17/23 20:00 Temperature 36.9 C Pulse Rate
[2023-07-18] MEDS: MIDAZOLAM 100MG/NS 100ML(*CRX) 100 MG/100 ML BAG 7 MG IV CONT (11:56)
[2023-07-18] MEDS: KCL 40 MEQ/WATER 100 ML 100 ML 25 ML IVPB (11:59)
[2023-07-18 12:13] LABS: Glucose Point of Care 183 mg/dl (65-105)
[2023-07-18 13:12] LABS: Triglycerides 77 mg/dL (<150)
[2023-07-18 15:46] LABS: Vancomycin Trough 19.7 ug/mL (10.0-20.0)
[2023-07-18 17:50] LABS: Anion Gap 5 mmol/L (8-16); Blood Urea Nitrogen 25 mg/dL (7-17); Calcium 8.3 mg/dL (8.4-10.2); Carbon Dioxide 32 mmol/L (22-30); Chloride 113 mmol/L (98-107); Estimated CRCL calculation 44 ml/min; Estimated Glomerular Filt Rate 50; Glucose 147 mg/dL (65-110); Potassium 3.2 mmol/L (3.4-5.0); Sodium 150 mmol/L (137-145)
[2023-07-18 18:29] LABS: Glucose Point of Care 157 mg/dl (65-105)
[2023-07-18] MEDS: POTASSIUM BICARBONATE 25 MEQ TABEF 50 MEQ PO (20:18)
[2023-07-19] VITALS (43 sets, daily range): BP systolic 90–124; BP diastolic 55–69; PULSE 63–94; RESP 18–20; TEMP 36.7–37.4; O2SAT 94–99
[2023-07-19] MEDS: POTASSIUM BICARBONATE 25 MEQ TABEF 50 MEQ PO (00:23)
[2023-07-19] MEDS: METOCLOPRAMIDE HCL 10 MG/10 ML SOLN UDC PO ×4 (00:23→17:44)
[2023-07-19 00:40] LABS: Glucose Point of Care 128 mg/dl (65-105)
[2023-07-19] MEDS: MIDAZOLAM 100MG/NS 100ML(*CRX) 100 MG/100 ML BAG 8 MG IV CONT (01:30)
[2023-07-19] MEDS: ALBUTEROL SULFATE NEB 2.5 MG/3 ML INH INHALATION ×4 (02:06→20:09)
[2023-07-19] MEDS: IPRATROPIUM BR 0.02% INH SOLN 0.5 MG/2.5 ML VIAL INHALATION ×4 (02:06→20:09)
[2023-07-19] MEDS: VANCOMYCIN 1,000 MG/NS 250 ML 1,000 MG/250 ML BAG 250 MG IVPB ×2 (04:01→23:54)
[2023-07-19 04:11] LABS: Alveolar/Arterial O2 Gradient 190.3 mmHg; Base Excess ABG 4.4 mEq/l (+/-2.0); Carboxyhemoglobin 0.1 % THb (0-2.0); Fractional Inspired Oxygen 45 %; HCO3 ABG 29.1 mEq/l (22.0-26.0); Methemoglobin ABG 0.4 %THb (0-1.5); Oxygen Content ABG 13.7 %vol (16.0-22.0); Oxygen Saturation ABG 96.1 % (95.0-100.0); PCO2 ABG 44.5 mmHg (35.0-45.0); PO2 ABG 79.9 mmHg (80.0-100.0); PO2 FiO2 Ratio Arterial Blood 1.78 %; Reduced Hemoglobin 5.5 %THb (0-5.0); Total Hemoglobin 10.3 g/dL (12.0-18.0); pH ABG 7.434 (7.350-7.450)
[2023-07-19 04:13] LABS: Device VENTILATOR; Modified Allen's Test Pass; Site Drawn RIGHT RADIAL
[2023-07-19 04:14] LABS: Arterial Blood Gas PEEP 10 cmH2O; Arterial Blood Gas Tidal Volume 360 ml; Arterial Blood Gas Vent Mode CMV; Arterial Blood Gas Ventilator rate 18 /MIN
[2023-07-19] MEDS: HYDROCORTISONE SODIUM SUCCINATE 100 MG/2 ML VIAL IV PUSH (05:40)
[2023-07-19] MEDS: CENTRAL LINE FLUSH 10 ML IV PUSH ×2 (05:40→14:06)
[2023-07-19] MEDS: metroNIDAZOLE 500 MG/ISO 100ML 500 MG/100 ML BAG 100 MG IVPB ×3 (05:40→21:59)
[2023-07-19 06:36] LABS: Hematocrit 27.3 % (37.0-47.0); Hemoglobin 8.1 g/dL (12.0-15.0); Mean Corpuscular HGB Conc 29.7 g/dl (32-36); Mean Corpuscular Hemoglobin 30.1 pg (26-34); Mean Corpuscular Volume 101.5 fl (80-100); Mean Platelet Volume 10.7 fl (7.4-10.4); Platelet Count Result 319 k/mm3 (150-375); Red Blood Count 2.69 M/mm3 (4.2-5.4); Red Cell Distribution Width 15.4 % (11.5-14.5); White Blood Count 13.3 K/mm3 (4.5-10.0)
[2023-07-19 06:46] LABS: Alanine Aminotransferase 18 U/L (6-35); Alkaline Phosphatase 39 U/L (38-126); Anion Gap -2 mmol/L (8-16); Aspartate Amino Transferase 41 U/L (14-36); Bilirubin,Total 0.3 mg/dL (0.2-1.3); Blood Urea Nitrogen 27 mg/dL (7-17); Calcium 8.1 mg/dL (8.4-10.2); Carbon Dioxide 37 mmol/L (22-30); Chloride 115 mmol/L (98-107); Estimated CRCL calculation 44 ml/min; Estimated Glomerular Filt Rate 50; Glucose 109 mg/dL (65-110); Magnesium 2.2 mg/dL (1.6-2.3); Phosphorus 2.3 mg/dL (2.5-4.5); Sodium 150 mmol/L (137-145)
[2023-07-19] MEDS: BUDESONIDE RESPULE NEB 0.5 MG/2 ML AMP INHALATION ×2 (07:28→20:09)
[2023-07-19] MEDS: FENTANYL 2,500MCG/NS250ML(*CRX 2,500 MCG/250 ML BAG 15 MCG IV CONT (07:31)
--- NOTE | 2023-07-19 08:35 | PM.IMPN ---
Progress Note: A&P Assessment and Plan (1) Acute respiratory failure: Code(s): J96.00 - Acute respiratory failure, unspecified whether with hypoxia or hypercapnia Status: Acute Assessment and Plan: Patient does have history of COPD but appears to be having multifactorial acute respiratory failure secondary to pneumonia. Postop patient was on BiPAP and was then transitioned to Airvo. She initially tolerated Airvo for 24 hours but then deteriorated requiring intubation on 07/15. Post intubation patient remained hypoxic and had to be sedated paralyzed and placed in prone position CTA lung 1. No pulmonary embolus identified. 2. Airspace opacities of the lower lobes and lingula, left greater than right, consistent with pneumonia and atelectasis. 3. Persistent intraperitoneal fluid in the bilateral pericolic gutters and pelvis, postoperative versus abscess. Chest x-ray ABG and vent settings reviewed Wean from vent as possible Continue Zosyn Flagyl and vancomycin Continue bronchodilators (2) COPD (chronic obstructive pulmonary disease): Code(s): J44.9 - Chronic obstructive pulmonary disease, unspecified Status: Acute Assessment and Plan: See above (3) Pneumonia: Code(s): J18.9 - Pneumonia, unspecified organism Status: Acute Assessment and Plan: See above (4) Perforation of sigmoid colon due to diverticulitis: Code(s): K57.20 - Diverticulitis of large intestine with perforation and abscess without bleeding Status: Acute Assessment and Plan: Status post exploratory laparotomy drainage of abscess and colostomy Ostomy management per general surgery Advance TF as tolerated (5) Intra-abdominal abscess: Code(s): K65.1 - Peritoneal abscess Status: Acute Assessment and Plan: Fluid in abd likely due to washout, 3rd spacing (6) Left hip pain: Code(s): M25.552 - Pain in left hip Status: Acute Assessment and Plan: Patient has chronic left hip pain. CT scan showed old right obturator ring fracture Continue fentanyl (7) Electrolyte abnormality: Code(s): E87.8 - Other disorders of electrolyte and fluid balance, not elsewhere classified Status: Acute Assessment and Plan: Continue to monitor (8) Shock: Code(s): R57.9 - Shock, unspecified Status: Acute Assessment and Plan: Post intubation patient became hypotensive and vasopressor started. This is likely multifactorial secondary to sepsis, positive pressure ventilation and sedation. Lactic acid level was normal and she has been afebrile. Vancomycin was added to the antibiotic coverage She was given additional 2 L bolus and started on IV fluids infusion which I will discontinue now Vasopressors have been weaned off. Weaning off hydrocortisone (9) Sepsis: Code(s): A41.9 - Sepsis, unspecified organism Status: Acute Assessment and Plan: WBC has improved overall Afebrile Hemodynamics improved Antibiotics as above Cultures negative thus far Subjective Date/time seen: 07/19/23 08:35 Interval history: On ventilator but alert. Holding phone with left hand. Denied pain, sob. Tired. Review of Systems Review of Systems: ROS unobtainable: Yes unobtainable due to endotracheal tube Exam Narrative: Psych Alert. Follows simple commands. ENT ET tube in place, sclerae nonicteric Neck w/o JVD Chest coarse BS Heart RR w/o audible murmur Extr no CCE Abd BS hypoactive, soft, mild reji-incisional tenderness MS no gross deformity Neuro CN symmetric to inspection, tone and strength symmetric Objective Data Vital Signs Vital Signs: Vital Signs - 24 hr 07/18/23 09:35 07/18/23 10:04 07/18/23 10:00 Temperature Pulse Rate 77 80 80 Respiratory Rate 18 18 Blood Pressure 127/67 Pulse Oximetry 94 95 Oxygen Delivery Mechanical Ventilation Fraction of Inspired Oxygen 45 07/18/23 11:54 07/18/23
--- NOTE | 2023-07-19 09:08 | WPDINTPN ---
Progress Note: A&P Assessment and Plan (1) Acute respiratory failure: Code(s): J96.00 - Acute respiratory failure, unspecified whether with hypoxia or hypercapnia Status: Acute Assessment and Plan: Patient does have history of COPD but appears to be having multifactorial acute respiratory failure secondary to pneumonia. Postop patient was on BiPAP and was then transitioned to Airvo. She initially tolerated Airvo for 24 hours but then deteriorated requiring intubation on 07/15. Post intubation patient remained hypoxic and had to be sedated paralyzed and placed in prone position CTA lung 1. No pulmonary embolus identified. 2. Airspace opacities of the lower lobes and lingula, left greater than right, consistent with pneumonia and atelectasis. 3. Persistent intraperitoneal fluid in the bilateral pericolic gutters and pelvis, postoperative versus abscess. Chest x-ray ABG and vent settings reviewed Continue FiO2 of 45% and peep of 10. Will try to wean FiO2 if possible Continue Zosyn Flagyl and vancomycin Continue bronchodilators Start Lasix (2) COPD (chronic obstructive pulmonary disease): Code(s): J44.9 - Chronic obstructive pulmonary disease, unspecified Status: Acute Assessment and Plan: See above (3) Pneumonia: Code(s): J18.9 - Pneumonia, unspecified organism Status: Acute Assessment and Plan: See above (4) Perforation of sigmoid colon due to diverticulitis: Code(s): K57.20 - Diverticulitis of large intestine with perforation and abscess without bleeding Status: Acute Assessment and Plan: Status post exploratory laparotomy drainage of abscess and colostomy Ostomy management per general surgery Continue tube feeds (5) Intra-abdominal abscess: Code(s): K65.1 - Peritoneal abscess Status: Acute Assessment and Plan: Discussed with general surgery. Surgeon believes the fluid in the abdomen is from the washout and third-spacing. (6) Left hip pain: Code(s): M25.552 - Pain in left hip Status: Acute Assessment and Plan: Patient has chronic left hip pain. 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 This is likely multifactorial secondary to sepsis, positive pressure ventilation and sedation. Lactic acid level was normal and she has been afebrile. Vancomycin was added to the antibiotic coverage She was given additional 2 L bolus and started on IV fluids infusion which I will discontinue now Vasopressors have been weaned off. Monitor and continue Levophed titration to maintain mean arterial pressure Off hydrocortisone Discontinued albumin (9) Sepsis: Code(s): A41.9 - Sepsis, unspecified organism Status: Acute Assessment and Plan: WBC have improved overall Afebrile Hemodynamics improved Antibiotics as above Cultures negative as of now Plan DVT prophylaxis -Lovenox Stress ulcer prophylaxis -Protonix Nutrition -continue tube feeds Code Status - Full Code I spoke to and updated patient's at bedside and answered all her questions Total Critical Care Time - 30 minutes Due to a high probability of clinically significant, life threatening deterioration, the patient required my highest level of preparedness to intervene emergently and I personally spent this critical care time directly and personally managing the patient. This critical care time included obtaining a history; examining the patient; pulse oximetry; order
[2023-07-19] MEDS: PANTOPRAZOLE SODIUM IV 40 MG VIAL IV PUSH (09:14)
[2023-07-19] MEDS: MINERAL OIL/WHITE PETROLATUM OINTMENT 1 APPLIC EACH EYE ×2 (09:14→21:59)
[2023-07-19] MEDS: polyethylene glycoL 3350 17 GM POWD.PACK FEED TUBE (09:14)
[2023-07-19] MEDS: ENOXAPARIN 40 MG/0.4 ML SYRINGE SUB-Q (09:53)
[2023-07-19] MEDS: FUROSEMIDE INJ 40 MG/4 ML VIAL IV PUSH ×2 (09:57→18:31)
[2023-07-19] MEDS: SODIUM PHOSPHATE 20 MM in DEXTROSE 5% IN WATER 250 ML 50 MM IVPB (09:57)
[2023-07-19] MEDS: DEXTROSE 5% 1,000 ML 1,000 ML 100 ML IV CONT (10:16)
--- NOTE | 2023-07-19 11:41 | PM.PNGS ---
Progress Note: A&P Assessment and Plan (1) Diverticulitis large intestine: Qualifiers: Diverticulitis bleeding: without bleeding Diverticulitis complication: with perforation and abscess Qualified Code(s): K57.20 - Diverticulitis of large intestine with perforation and abscess without bleeding Code(s): K57.32 - Diverticulitis of large intestine without perforation or abscess without bleeding Status: Acute Assessment and Plan: Continue MiraLax daily per tube Continue tube feeds, at goal Continue IV antibiotics. Pathology showed perforated diverticulitis, no malignancy (2) Acute respiratory failure: Code(s): J96.00 - Acute respiratory failure, unspecified whether with hypoxia or hypercapnia Status: Acute Assessment and Plan: Likely multifactorial. Patient now intubated and sedated. CTA negative for PE, suggesting pneumonia and atelectasis. Continue as per [employer] (3) Shock: Code(s): R57.9 - Shock, unspecified Status: Acute Assessment and Plan: Resolving (4) Pneumonia: Code(s): J18.9 - Pneumonia, unspecified organism Status: Acute Assessment and Plan: Continue IV antibiotics (5) COPD (chronic obstructive pulmonary disease): Code(s): J44.9 - Chronic obstructive pulmonary disease, unspecified Status: Acute (6) Tobacco use: Code(s): Z72.0 - Tobacco use Status: Acute Subjective Subjective Date/Time Seen: 07/19/23 11:41 Interval history: Tolerating tube feeds, ostomy functioning. No fevers. Minimal pain. Exam Cardio: Rate: regular rate Rhythm: regular rhythm GI: Inspection: non-distended, incision (minimal serous drainage from umbilical area) and other (left-sided ostomy, stoma pink and healthy, stool in bag) GI Palp: Yes Soft to palpation Auscultation: normal bowel sounds Urinary Catheter: Urinary Catheter: patent and draining and urine clear Objective Data Vital Signs Vital Signs: Vital Signs - 24 hr 07/18/23 11:54 07/18/23 11:56 07/18/23 12:00 Temperature 36.6 C Pulse Rate 68 69 Respiratory Rate 18 18 Blood Pressure Pulse Oximetry Oxygen Delivery Fraction of Inspired Oxygen 07/18/23 12:00 07/18/23 12:00 07/18/23 13:00 Temperature Pulse Rate 69 71 Respiratory Rate 18 Blood Pressure 133/69 Pulse Oximetry 96 95 Oxygen Delivery Mechanical Ventilation Fraction of Inspired Oxygen 45 45 07/18/23 13:00 07/18/23 13:10 07/18/23 14:00 Temperature Pulse Rate 71 74 77 Respiratory Rate 19 18 18 Blood Pressure 127/68 Pulse Oximetry 96 Oxygen Delivery Fraction of Inspired Oxygen 07/18/23 12:00 07/18/23 14:00 07/18/23 16:05 Temperature Pulse Rate 68 66 70 Respiratory Rate Blood Pressure Pulse Oximetry 96 Oxygen Delivery Mechanical Ventilation Fraction of Inspired Oxygen 45 07/18/23 16:00 07/18/23 16:00 07/18/23 14:00 Temperature 37.3 C Pulse Rate 100 67 Respiratory Rate 18 18 Blood Pressure 122/68 Pulse Oximetry 92 Oxygen Delivery Fraction of Inspired Oxygen 45 07/18/23 16:54 07/18/23 13:00 07/18/23 15:00 Temperature Pulse Rate 69 72 63 Respiratory Rate 18 18 18 Blood Pressure Pulse Oximetry Oxygen Delivery Fraction of Inspired Oxygen 07/18/23 17:05 07/18/23 17:06 07/18/23 18:30 Temperature Pulse Rate 96 94 84 Respiratory Rate 18 18 18 Blood Pressure Pulse Oximetry Oxygen Delivery Fraction of Inspired Oxygen 07/18/23 18:30 07/18/23 18:00 07/18/23 16:00 Temperature Pulse Rate 84 82 69 Respiratory Rate 18 18 Blood Pressure 125/69 Pulse Oximetry 96 Oxygen Delivery Fraction of Inspired Oxygen 07/18/23 18:00 07/18/23 12:00 07/18/23 16:00 Temperature Pulse Rate 77 Respiratory Rate Blood Pressure Pulse Oximetry 96 96 Oxygen Delivery Mechanical Ventilation Mechanical Ventilation Fraction of Inspired
[2023-07-19 12:54] LABS: Glucose Point of Care 198 mg/dl (65-105)
[2023-07-19] MEDS: MIDAZOLAM 100MG/NS 100ML(*CRX) 100 MG/100 ML BAG 7 MG IV CONT (15:30)
[2023-07-19 16:24] LABS: Vancomycin Trough 22.8 ug/mL (10.0-20.0)
[2023-07-19 17:56] LABS: Glucose Point of Care 145 mg/dl (65-105)
[2023-07-19] MEDS: FENTANYL 2,500MCG/NS250ML(*CRX 2,500 MCG/250 ML BAG 17.5 MCG IV CONT (23:03)
[2023-07-19] MEDS: MORPHINE SULFATE (*CRX) 4 MG/ML INJ IV PUSH (23:44)
[2023-07-20] VITALS (31 sets, daily range): BP systolic 89–138; BP diastolic 52–88; PULSE 65–99; RESP 16–26; TEMP 36.6–37.1; O2SAT 93–99
[2023-07-20] MEDS: METOCLOPRAMIDE HCL 10 MG/10 ML SOLN UDC PO ×2 (00:21→06:10)
[2023-07-20 00:22] LABS: Glucose Point of Care 106 mg/dl (65-105)
[2023-07-20] MEDS: ALBUTEROL SULFATE NEB 2.5 MG/3 ML INH INHALATION ×4 (01:27→20:28)
[2023-07-20] MEDS: IPRATROPIUM BR 0.02% INH SOLN 0.5 MG/2.5 ML VIAL INHALATION ×4 (01:27→20:28)
[2023-07-20] MEDS: CENTRAL LINE FLUSH 10 ML IV PUSH ×4 (01:34→23:33)
[2023-07-20 04:19] LABS: Basophils Percent Auto 0.2 % (0.2-1.2); Eosinophils Absolute Auto 0.1 K/mm3 (0-0.3); Eosinophils Percent Auto 0.9 % (0-4.4); Hematocrit 27.9 % (37.0-47.0); Hemoglobin 8.6 g/dL (12.0-15.0); Immature Granulocyte Absolute 0.08 K/mm3 (0.00-0.031); Immature Granulocyte Percent A 0.7 % (0-0.5); Lymphocytes Absolute Auto 1.69 K/mm3 (0.9-3.2); Lymphocytes Percent Auto 14.4 % (18.3-44.2); Mean Corpuscular HGB Conc 30.8 g/dl (32-36); Mean Corpuscular Hemoglobin 30.5 pg (26-34); Mean Corpuscular Volume 98.9 fl (80-100); Monocytes Absolute Auto 0.5 K/mm3 (0.1-0.6); Monocytes Percent Auto 4.4 % (2.6-8.5); Neutrophils Absolute Auto 9.3 K/mm3 (1.3-6.7); Neutrophils Percent Auto 79.4 % (45.5-73.1); Platelet Count Result 289 k/mm3 (150-375); Red Blood Count 2.82 M/mm3 (4.2-5.4); Red Cell Distribution Width 14.9 % (11.5-14.5); White Blood Count 11.7 K/mm3 (4.5-10.0)
[2023-07-20 04:32] LABS: Alanine Aminotransferase 17 U/L (6-35); Albumin Level 2.9 g/dL (3.5-5.1); Alkaline Phosphatase 40 U/L (38-126); Anion Gap 2 mmol/L (8-16); Aspartate Amino Transferase 28 U/L (14-36); Bilirubin,Total 0.3 mg/dL (0.2-1.3); Blood Urea Nitrogen 30 mg/dL (7-17); Calcium 7.8 mg/dL (8.4-10.2); Carbon Dioxide 37 mmol/L (22-30); Chloride 107 mmol/L (98-107); Estimated CRCL calculation 53 ml/min; Estimated Glomerular Filt Rate > 60; Glucose 131 mg/dL (65-110); INR 1.3; Magnesium 1.9 mg/dL (1.6-2.3); Partial Thromboplastin Time 37.6 SECONDS (22.3-36.8); Phosphorus 2.7 mg/dL (2.5-4.5); Potassium 2.6 mmol/L (3.4-5.0); Sodium 146 mmol/L (137-145); Triglycerides 180 mg/dL (<150)
[2023-07-20 04:40] LABS: Transferrin < 80 mg/dL (206-381)
[2023-07-20 05:02] LABS: Alveolar/Arterial O2 Gradient 198.2 mmHg; Base Excess ABG 9.2 mEq/l (+/-2.0); Carboxyhemoglobin 0.2 % THb (0-2.0); Fractional Inspired Oxygen 45 %; HCO3 ABG 34.2 mEq/l (22.0-26.0); Methemoglobin ABG 0.2 %THb (0-1.5); Oxygen Content ABG 13.1 %vol (16.0-22.0); Oxygen Saturation ABG 94.1 % (95.0-100.0); Oxyhemoglobin 92.5 % THb (90.0-100.0); PCO2 ABG 48.8 mmHg (35.0-45.0); PO2 ABG 67.1 mmHg (80.0-100.0); PO2 FiO2 Ratio Arterial Blood 1.49 %; Reduced Hemoglobin 7.1 %THb (0-5.0); pH ABG 7.463 (7.350-7.450)
[2023-07-20 05:03] LABS: Arterial Blood Gas Vent Mode CMV; Arterial Blood Gas Ventilator rate 18 /MIN; Device VENTILATOR; Modified Allen's Test Pass; Site Drawn RIGHT RADIAL
[2023-07-20 05:04] LABS: Arterial Blood Gas PEEP 10 cmH2O; Arterial Blood Gas Tidal Volume 360 ml
[2023-07-20] MEDS: MIDAZOLAM 100MG/NS 100ML(*CRX) 100 MG/100 ML BAG 7 MG IV CONT (05:09)
[2023-07-20] MEDS: KCL 40 MEQ/WATER 100 ML 100 ML 25 ML IVPB (06:02)
[2023-07-20] MEDS: metroNIDAZOLE 500 MG/ISO 100ML 500 MG/100 ML BAG 100 MG IVPB (06:03)
[2023-07-20] MEDS: HYDROCORTISONE SODIUM SUCCINATE 100 MG/2 ML VIAL IV PUSH (06:04)
[2023-07-20] MEDS: POTASSIUM BICARBONATE 25 MEQ TABEF 50 MEQ FEED TUBE (06:04)
[2023-07-20] MEDS: BUDESONIDE RESPULE NEB 0.5 MG/2 ML AMP INHALATION ×2 (08:00→20:28)
[2023-07-20] MEDS: MINERAL OIL/WHITE PETROLATUM OINTMENT 1 APPLIC EACH EYE ×2 (09:30→21:30)
[2023-07-20] MEDS: PANTOPRAZOLE SODIUM IV 40 MG VIAL IV PUSH (09:30)
[2023-07-20] MEDS: POTASSIUM CHLORIDE 20 MEQ PACKET (FOR LIQUID) 40 MEQ FEED TUBE (09:31)
[2023-07-20] MEDS: ENOXAPARIN 40 MG/0.4 ML SYRINGE SUB-Q (09:31)
[2023-07-20] MEDS: polyethylene glycoL 3350 17 GM POWD.PACK FEED TUBE (09:31)
--- NOTE | 2023-07-20 10:30 | PCFNICU ---
ICU Rounding Note: Pt current nutrition is Vital AF 1.2 @ 55 ml/h: AT GOAL. Flushes 200 ml q 4 hours due to sodium: 146 (this has been consistent since 07/16/23). Nutrition recommendation: Continue with same nutrition care plan and orders Last recorded weight is 74.1 kg. Bowel Motility: Good output through ostomy Labs Reviewed: Hgb 8.6, Hct 27.9, Alb 2.9, Na 146, K+ 2.6, BUN 30, Glu 131, TRIG 180 Meds Noted: Sedation with fentanyl, versed. Zofran, protonix, Lovenox, Miralax, reglan, novolog, lasix Skin: Surgical incision to abdomen Additional Notes: Residuals at 400 ml this morning, which is below the recommended hold parameters of 500 ml; pt also getting 200 ml flushes q 4 hours d/t high sodium levels. Recommend continuing with current orders with no changes. Following daily in ICU rounds. Monitor tube feeding tolerance, rate, wt, labs. Follow up daily in ICU rounds, reassess every Thursday and Thursday. .
--- NOTE | 2023-07-20 10:33 | WPDINTPN ---
Progress Note: A&P Assessment and Plan (1) Acute respiratory failure: Code(s): J96.00 - Acute respiratory failure, unspecified whether with hypoxia or hypercapnia Status: Acute Assessment and Plan: Patient does have history of COPD but appears to be having multifactorial acute respiratory failure secondary to pneumonia. Postop patient was on BiPAP and was then transitioned to Airvo. She initially tolerated Airvo for 24 hours but then deteriorated requiring intubation on 07/15. Post intubation patient remained hypoxic and had to be sedated paralyzed and placed in prone position CTA lung 1. No pulmonary embolus identified. 2. Airspace opacities of the lower lobes and lingula, left greater than right, consistent with pneumonia and atelectasis. 3. Persistent intraperitoneal fluid in the bilateral pericolic gutters and pelvis, postoperative versus abscess. Chest x-ray ABG and vent settings reviewed Continue FiO2 of 40% and peep of 10. Will try to wean FiO2 if possible Continue Zosyn. I will discontinue Flagyl and vancomycin since cultures and MRSA screening has been negative Continue bronchodilators Resume Lasix after potassium is replaced (2) COPD (chronic obstructive pulmonary disease): Code(s): J44.9 - Chronic obstructive pulmonary disease, unspecified Status: Acute Assessment and Plan: See above (3) Pneumonia: Code(s): J18.9 - Pneumonia, unspecified organism Status: Acute Assessment and Plan: See above (4) Perforation of sigmoid colon due to diverticulitis: Code(s): K57.20 - Diverticulitis of large intestine with perforation and abscess without bleeding Status: Acute Assessment and Plan: Status post exploratory laparotomy drainage of abscess and colostomy Ostomy management per general surgery Continue tube feeds (5) Intra-abdominal abscess: Code(s): K65.1 - Peritoneal abscess Status: Acute Assessment and Plan: Discussed with general surgery. Surgeon believes the fluid in the abdomen is from the washout and third-spacing. (6) Left hip pain: Code(s): M25.552 - Pain in left hip Status: Acute Assessment and Plan: Patient has chronic left hip pain. 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 Hold diuretics until potassium placed Hypernatremia -improving. Continue free water flushes (8) Shock: Code(s): R57.9 - Shock, unspecified Status: Acute Assessment and Plan: Post intubation patient became hypotensive and vasopressor started. This is likely multifactorial secondary to sepsis, positive pressure ventilation and sedation. Lactic acid level was normal and she has been afebrile. Vancomycin was added to the antibiotic coverage She was given additional 2 L bolus and started on IV fluids infusion which I will discontinue now Vasopressors have been weaned off. Monitor and continue Levophed titration to maintain mean arterial pressure Off hydrocortisone andalbumin (9) Sepsis: Code(s): A41.9 - Sepsis, unspecified organism Status: Acute Assessment and Plan: WBC have improved overall Afebrile Hemodynamics improved Antibiotics as above Cultures negative as of now Plan DVT prophylaxis -Lovenox Stress ulcer prophylaxis -Protonix Nutrition -continue tube feeds Code Status - Full Code Total Critical Care Time - 32 minutes Due to a high probability of clinically significant, life threatening deterioration, the patient required my highest level of preparedness to intervene emergently and I personally spent this critical care time directly and personally managing the patient. This critical care time included obtaining a history; examining
[2023-07-20] MEDS: FUROSEMIDE INJ 40 MG/4 ML VIAL IV PUSH (11:32)
--- NOTE | 2023-07-20 11:46 | PM.PNGS ---
Progress Note: A&P Assessment and Plan (1) Diverticulitis large intestine: Qualifiers: Diverticulitis bleeding: without bleeding Diverticulitis complication: with perforation and abscess Qualified Code(s): K57.20 - Diverticulitis of large intestine with perforation and abscess without bleeding Code(s): K57.32 - Diverticulitis of large intestine without perforation or abscess without bleeding Status: Acute Assessment and Plan: Continue MiraLax daily per tube Continue tube feeds, at goal Continue IV antibiotics. WBC trending down. Daily gauze dressing changes to incision. Pathology showed perforated diverticulitis, no malignancy (2) Acute respiratory failure: Code(s): J96.00 - Acute respiratory failure, unspecified whether with hypoxia or hypercapnia Status: Acute Assessment and Plan: Likely multifactorial. Patient now intubated and sedated. CTA negative for PE, suggesting pneumonia and atelectasis. Continue as per Mys[employer] Developer (3) Shock: Code(s): R57.9 - Shock, unspecified Status: Acute Assessment and Plan: Resolving (4) Pneumonia: Code(s): J18.9 - Pneumonia, unspecified organism Status: Acute Assessment and Plan: Continue IV antibiotics (5) COPD (chronic obstructive pulmonary disease): Code(s): J44.9 - Chronic obstructive pulmonary disease, unspecified Status: Acute (6) Tobacco use: Code(s): Z72.0 - Tobacco use Status: Acute Plan I have discussed the patient's case and plan of care with Dr. Reynolds. Subjective Subjective Date/Time Seen: 07/20/23 11:46 Post Op day: 7 (Exploratory laparotomy, drainage of intra-abdominal abscess, sigmoid colectomy with end descending colostomy) Interval history: Patient intubated and sedated in the ICU. She is alert and able to nod yes or no to questions. Denies any pain. Daughter and [id number] at the bedside. She is currently receiving potassium replacement IV. Ostomy functioning. Tube feedings at goal. Review of Systems Review of Systems: ROS unobtainable: Yes unobtainable due to endotracheal tube Exam Const: General: awake Other: intubated and sedated in the ICU Resp: Effort & Inspection: abnormal respiratory pattern (on mechanical ventilatory, sedated) Auscultation: clear to auscultation bilaterally Cardio: Rate: regular rate Rhythm: regular rhythm GI: Inspection: non-distended and incision (minimal serosanguineous drainage from umbilical area, no erythema) GI Palp: Yes Soft to palpation Auscultation: normal bowel sounds Other: Ostomy functioning with stool in bag Urinary Catheter: Urinary Catheter: patent and draining and urine clear Objective Data Vital Signs Vital Signs: Vital Signs - 24 hr 07/19/23 12:00 07/19/23 12:00 07/19/23 12:00 Temperature 99.3 F Pulse Rate 74 72 72 Respiratory Rate 18 18 18 Blood Pressure 96/59 L Pulse Oximetry 97 Oxygen Delivery Fraction of Inspired Oxygen 07/19/23 12:00 07/19/23 12:00 07/19/23 12:00 Temperature Pulse Rate 74 Respiratory Rate Blood Pressure Pulse Oximetry 97 Oxygen Delivery Mechanical Ventilation Fraction of Inspired Oxygen 45 45 07/19/23 14:00 07/19/23 14:00 07/19/23 14:08 Temperature Pulse Rate 73 65 74 Respiratory Rate 18 Blood Pressure 90/55 L Pulse Oximetry 98 98 Oxygen Delivery Mechanical Ventilation Fraction of Inspired Oxygen 45 07/19/23 14:12 07/19/23 14:35 07/19/23 15:30 Temperature Pulse Rate 74 73 72 Respiratory Rate 19 18 18 Blood Pressure Pulse Oximetry Oxygen Delivery Fraction of Inspired Oxygen 07/19/23 15:30 07/19/23 15:31 07/19/23 16:00 Temperature 98.2 F Pulse Rate 72 70 76 Respiratory Rate 18 18 18 Blood Pressure 93/56 L Pulse Oximetry 96 Oxygen Delivery Fraction of Inspired Oxygen 07/19/23 17:19 07/19/23 17:20 07/19/23 17:21 [facility]
[2023-07-20] MEDS: PIPERACILLIN/TAZ 4.5G/NS 100ML 4.5 GM/100 ML BAG IVPB ×2 (11:53→18:19)
--- NOTE | 2023-07-20 12:01 | PM.IMPN ---
Progress Note: A&P Assessment and Plan (1) Acute respiratory failure: Code(s): J96.00 - Acute respiratory failure, unspecified whether with hypoxia or hypercapnia Status: Acute Assessment and Plan: Patient does have history of COPD but appears to be having multifactorial acute respiratory failure secondary to pneumonia. Postop patient was on BiPAP and was then transitioned to Airvo. She initially tolerated Airvo for 24 hours but then deteriorated requiring intubation on 07/15. Post intubation patient remained hypoxic and had to be sedated paralyzed and placed in prone position CTA lung 1. No pulmonary embolus identified. 2. Airspace opacities of the lower lobes and lingula, left greater than right, consistent with pneumonia and atelectasis. 3. Persistent intraperitoneal fluid in the bilateral pericolic gutters and pelvis, postoperative versus abscess. Chest x-ray ABG and vent settings reviewed Continue FiO2 of 40% and peep of 10. Will try to wean FiO2 if possible Continue Zosyn. I will discontinue Flagyl and vancomycin since cultures and MRSA screening has been negative Continue bronchodilators Resume Lasix after potassium is replaced (2) COPD (chronic obstructive pulmonary disease): Code(s): J44.9 - Chronic obstructive pulmonary disease, unspecified Status: Acute Assessment and Plan: See above (3) Pneumonia: Code(s): J18.9 - Pneumonia, unspecified organism Status: Acute Assessment and Plan: See above (4) Perforation of sigmoid colon due to diverticulitis: Code(s): K57.20 - Diverticulitis of large intestine with perforation and abscess without bleeding Status: Acute Assessment and Plan: Status post exploratory laparotomy drainage of abscess and colostomy Ostomy management per general surgery Continue tube feeds (5) Intra-abdominal abscess: Code(s): K65.1 - Peritoneal abscess Status: Acute Assessment and Plan: Discussed with general surgery. Surgeon believes the fluid in the abdomen is from the washout and third-spacing. (6) Left hip pain: Code(s): M25.552 - Pain in left hip Status: Acute Assessment and Plan: Patient has chronic left hip pain. 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 Hold diuretics until potassium placed Hypernatremia -improving. Continue free water flushes (8) Shock: Code(s): R57.9 - Shock, unspecified Status: Acute Assessment and Plan: Post intubation patient became hypotensive and vasopressor started. This is likely multifactorial secondary to sepsis, positive pressure ventilation and sedation. Lactic acid level was normal and she has been afebrile. Vancomycin was added to the antibiotic coverage She was given additional 2 L bolus and started on IV fluids infusion which I will discontinue now Vasopressors have been weaned off. Monitor and continue Levophed titration to maintain mean arterial pressure Off hydrocortisone andalbumin (9) Sepsis: Code(s): A41.9 - Sepsis, unspecified organism Status: Acute Assessment and Plan: WBC have improved overall Afebrile Hemodynamics improved Antibiotics as above Cultures negative as of now Subjective Date/time seen: 07/20/23 12:01 Interval history: Sedated intubated Review of Systems Review of Systems: ROS unobtainable: Yes unobtainable due to endotracheal tube Exam Narrative: General: Pt is sedated, intubated and on mechanical ventilation Lungs/Chest: Trachea central Coarse BS B/L, No crackles or wheezing. Cardiac: RRR. Normal S1 S2. No murmurs Circulation: Pedal pulses are intact and symmetrical. Abdomen: Decreased bowel sounds. Obese. Soft. N
[2023-07-20 12:09] LABS: Glucose Point of Care 176 mg/dl (65-105)
[2023-07-20] MEDS: FENTANYL 2,500MCG/NS250ML(*CRX 2,500 MCG/250 ML BAG 15 MCG IV CONT (12:44)
[2023-07-20 18:00] LABS: Anion Gap 4 mmol/L (8-16); Blood Urea Nitrogen 31 mg/dL (7-17); Calcium 8.1 mg/dL (8.4-10.2); Carbon Dioxide 39 mmol/L (22-30); Chloride 106 mmol/L (98-107); Estimated CRCL calculation 48 ml/min; Estimated Glomerular Filt Rate 56; Glucose 130 mg/dL (65-110); Potassium 3.6 mmol/L (3.4-5.0); Sodium 149 mmol/L (137-145)
[2023-07-20] MEDS: SILVERGEL (ELTA) 45 ML 1 APPLIC TOPICAL (18:06)
[2023-07-20] MEDS: MIDAZOLAM 100MG/NS 100ML(*CRX) 100 MG/100 ML BAG 6 MG IV CONT (21:05)
[2023-07-21] VITALS (26 sets, daily range): BP systolic 107–136; BP diastolic 62–95; PULSE 65–99; RESP 13–25; TEMP 36.6–37.3; O2SAT 90–98
[2023-07-21] MEDS: PIPERACILLIN/TAZ 4.5G/NS 100ML 4.5 GM/100 ML BAG IVPB ×4 (00:44→17:27)
[2023-07-21] MEDS: METOCLOPRAMIDE HCL 10 MG/10 ML SOLN UDC PO ×3 (00:45→12:07)
[2023-07-21 00:57] LABS: Glucose Point of Care 123 mg/dl (65-105)
[2023-07-21] MEDS: ALBUTEROL SULFATE NEB 2.5 MG/3 ML INH INHALATION ×4 (01:21→19:42)
[2023-07-21] MEDS: IPRATROPIUM BR 0.02% INH SOLN 0.5 MG/2.5 ML VIAL INHALATION ×4 (01:21→19:42)
[2023-07-21] MEDS: FENTANYL 2,500MCG/NS250ML(*CRX 2,500 MCG/250 ML BAG 7.5 MCG IV CONT (06:15)
[2023-07-21] MEDS: CENTRAL LINE FLUSH 10 ML IV PUSH ×3 (06:17→20:26)
[2023-07-21 06:39] LABS: Hematocrit 31.5 % (37.0-47.0); Hemoglobin 9.6 g/dL (12.0-15.0); Mean Corpuscular HGB Conc 30.5 g/dl (32-36); Mean Corpuscular Hemoglobin 30.3 pg (26-34); Mean Corpuscular Volume 99.4 fl (80-100); Mean Platelet Volume 10.8 fl (7.4-10.4); Platelet Count Result 298 k/mm3 (150-375); Red Blood Count 3.17 M/mm3 (4.2-5.4); Red Cell Distribution Width 15.2 % (11.5-14.5); White Blood Count 13.4 K/mm3 (4.5-10.0)
[2023-07-21 06:46] LABS: Glucose Point of Care 118 mg/dl (65-105)
[2023-07-21 06:53] LABS: Anion Gap 2 mmol/L (8-16); Blood Urea Nitrogen 33 mg/dL (7-17); Calcium 8.2 mg/dL (8.4-10.2); Carbon Dioxide 38 mmol/L (22-30); Chloride 108 mmol/L (98-107); Estimated CRCL calculation 48 ml/min; Estimated Glomerular Filt Rate 56; Glucose 131 mg/dL (65-110); Phosphorus 2.5 mg/dL (2.5-4.5); Potassium 3.3 mmol/L (3.4-5.0); Sodium 148 mmol/L (137-145)
[2023-07-21] MEDS: BUDESONIDE RESPULE NEB 0.5 MG/2 ML AMP INHALATION ×2 (07:57→19:42)
[2023-07-21] MEDS: ENOXAPARIN 40 MG/0.4 ML SYRINGE SUB-Q (08:08)
[2023-07-21] MEDS: acetaZOLAMIDE SODIUM FOR INJ 500 MG VIAL 250 MG IV PUSH ×2 (08:09→20:26)
[2023-07-21] MEDS: polyethylene glycoL 3350 17 GM POWD.PACK FEED TUBE (08:09)
[2023-07-21] MEDS: POTASSIUM CHLORIDE 20 MEQ PACKET (FOR LIQUID) 40 MEQ FEED TUBE (08:09)
[2023-07-21] MEDS: PANTOPRAZOLE SODIUM IV 40 MG VIAL IV PUSH (08:09)
[2023-07-21] MEDS: MINERAL OIL/WHITE PETROLATUM OINTMENT 1 APPLIC EACH EYE (08:16)
[2023-07-21] MEDS: KCL 40 MEQ/WATER 100 ML 100 ML 25 ML IVPB (08:16)
--- NOTE | 2023-07-21 08:47 | WPDINTPN ---
Progress Note: A&P Assessment and Plan (1) Acute respiratory failure: Code(s): J96.00 - Acute respiratory failure, unspecified whether with hypoxia or hypercapnia Status: Acute Assessment and Plan: Patient does have history of COPD but appears to be having multifactorial acute respiratory failure secondary to pneumonia. Postop patient was on BiPAP and was then transitioned to Airvo. She initially tolerated Airvo for 24 hours but then deteriorated requiring intubation on 07/15. Post intubation patient remained hypoxic and had to be sedated paralyzed and placed in prone position CTA lung 1. No pulmonary embolus identified. 2. Airspace opacities of the lower lobes and lingula, left greater than right, consistent with pneumonia and atelectasis. 3. Persistent intraperitoneal fluid in the bilateral pericolic gutters and pelvis, postoperative versus abscess. Currently on FiO2 of 30% and peep of 8. Continue Zosyn. Flagyl and vancomycin since cultures and MRSA screening has been negative (07/20) Continue bronchodilators Patient diuresing very well with Lasix, has contraction alkalosis on BMP, will switch Lasix to Diamox for today -placed patient on pressure support ventilation 10/5, patient has been tolerating, will switch to 8/5 and will evaluate for extubation (2) COPD (chronic obstructive pulmonary disease): Code(s): J44.9 - Chronic obstructive pulmonary disease, unspecified Status: Acute Assessment and Plan: See above (3) Pneumonia: Code(s): J18.9 - Pneumonia, unspecified organism Status: Acute Assessment and Plan: See above (4) Perforation of sigmoid colon due to diverticulitis: Code(s): K57.20 - Diverticulitis of large intestine with perforation and abscess without bleeding Status: Acute Assessment and Plan: Status post exploratory laparotomy drainage of abscess and colostomy Ostomy management per general surgery Continue tube feeds (5) Intra-abdominal abscess: Code(s): K65.1 - Peritoneal abscess Status: Acute Assessment and Plan: Discussed with general surgery. Surgeon believes the fluid in the abdomen is from the washout and third-spacing. (6) Left hip pain: Code(s): M25.552 - Pain in left hip Status: Acute Assessment and Plan: Patient has chronic left hip pain. 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 Hypernatremia -improving. Continue free water flushes (8) Shock: Code(s): R57.9 - Shock, unspecified Status: Acute Assessment and Plan: Post intubation patient became hypotensive and vasopressor started. This is likely multifactorial secondary to sepsis, positive pressure ventilation and sedation. Lactic acid level was normal and she has been afebrile. Vancomycin was added to the antibiotic coverage Off all IV fluids Vasopressors have been weaned off. Monitor and continue Levophed titration to maintain mean arterial pressure Off hydrocortisone andalbumin (9) Sepsis: Code(s): A41.9 - Sepsis, unspecified organism Status: Acute Assessment and Plan: WBC have improved overall Afebrile Hemodynamics improved Antibiotics as above Cultures negative as of now Plan DVT prophylaxis -Lovenox Stress ulcer prophylaxis -Protonix Nutrition -hold tube feeds for possible extubation Code Status - Full Code Total Critical Care Time - 37 minutes Discussed with patient and family at bedside and updated them with patient's condition and plan of care. I did discuss with them regarding placing patient on a breathing trial and will evaluate for extubation if she passes her breathing trial. I answered all questions Due to a high probability of cli
[2023-07-21 10:03] LABS: Alveolar/Arterial O2 Gradient 103.8 mmHg; Base Excess ABG 9.5 mEq/l (+/-2.0); Carboxyhemoglobin 0.3 % THb (0-2.0); Fractional Inspired Oxygen 30 %; HCO3 ABG 33.4 mEq/l (22.0-26.0); Methemoglobin ABG 0.3 %THb (0-1.5); Oxygen Content ABG 14.3 %vol (16.0-22.0); Oxygen Saturation ABG 93.2 % (95.0-100.0); Oxyhemoglobin 91.3 % THb (90.0-100.0); PCO2 ABG 42.4 mmHg (35.0-45.0); PO2 ABG 60.3 mmHg (80.0-100.0); PO2 FiO2 Ratio Arterial Blood 2.01 %; Reduced Hemoglobin 8.1 %THb (0-5.0); Total Hemoglobin 11.1 g/dL (12.0-18.0)
[2023-07-21 10:05] LABS: Device VENTILATOR; Modified Allen's Test Pass; Site Drawn RIGHT RADIAL; pH ABG 7.514 (7.350-7.450)
[2023-07-21 10:07] LABS: Arterial Blood Gas PEEP 5 cmH2O; Arterial Blood Gas Pressure Support 8 cmH2O
--- NOTE | 2023-07-21 11:16 | PCFNICU ---
ICU Rounding Note: Pt current nutrition is NPO Last recorded weight is 69.6 kg, up from 64.4 kg on admit. Bowel Motility: ostomy Labs Reviewed:Glu 131, BUN 33, Na 148, Hct 31.5, Hgb 9.6, GFR 56 Meds Noted:Reglan, Atrovent Skin: surgical wound to abdomen. Additional Notes: Patient is NPO for extubated today. Recommend diet order advancing as tolerated per MD orders. Following daily in ICU rounds and reassessing every 3 days.
[2023-07-21 11:18] LABS: Glucose Point of Care 103 mg/dl (65-105)
--- NOTE | 2023-07-21 11:33 | P.PNIM_ITS ---
Progress Note: A&P Assessment and Plan (1) Acute respiratory failure: Code(s): J96.00 - Acute respiratory failure, unspecified whether with hypoxia or hypercapnia Status: Acute Assessment and Plan: Patient does have history of COPD but appears to be having multifactorial acute respiratory failure secondary to pneumonia. Postop patient was on BiPAP and was then transitioned to Airvo. She initially tolerated Airvo for 24 hours but then deteriorated requiring intubation on 07/15. Post intubation patient remained hypoxic and had to be sedated paralyzed and placed in prone position CTA lung 1. No pulmonary embolus identified. 2. Airspace opacities of the lower lobes and lingula, left greater than right, consistent with pneumonia and atelectasis. 3. Persistent intraperitoneal fluid in the bilateral pericolic gutters and pelvis, postoperative versus abscess. Currently on FiO2 of 30% and peep of 8. Continue Zosyn. Flagyl and vancomycin since cultures and MRSA screening has been negative (07/20) Continue bronchodilators Patient diuresing very well with Lasix, has contraction alkalosis on BMP, will switch Lasix to Diamox for today -placed patient on pressure support ventilation 10/5, patient has been tolerating, will switch to 8/5 and will evaluate for extubation (2) COPD (chronic obstructive pulmonary disease): Code(s): J44.9 - Chronic obstructive pulmonary disease, unspecified Status: Acute Assessment and Plan: See above (3) Pneumonia: Code(s): J18.9 - Pneumonia, unspecified organism Status: Acute Assessment and Plan: See above (4) Perforation of sigmoid colon due to diverticulitis: Code(s): K57.20 - Diverticulitis of large intestine with perforation and abscess without bleeding Status: Acute Assessment and Plan: Status post exploratory laparotomy drainage of abscess and colostomy Ostomy management per general surgery Continue tube feeds (5) Intra-abdominal abscess: Code(s): K65.1 - Peritoneal abscess Status: Acute Assessment and Plan: Discussed with general surgery. Surgeon believes the fluid in the abdomen is from the washout and third-spacing. (6) Left hip pain: Code(s): M25.552 - Pain in left hip Status: Acute Assessment and Plan: Patient has chronic left hip pain. 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 Hypernatremia -improving. Continue free water flushes (8) Shock: Code(s): R57.9 - Shock, unspecified Status: Acute Assessment and Plan: Post intubation patient became hypotensive and vasopressor started. This is likely multifactorial secondary to sepsis, positive pressure ventilation and sedation. Lactic acid level was normal and she has been afebrile. Vancomycin was added to the antibiotic coverage Off all IV fluids Vasopressors have been weaned off. Monitor and continue Levophed titration to maintain mean arterial pressure Off hydrocortisone andalbumin (9) Sepsis: Code(s): A41.9 - Sepsis, unspecified organism Status: Acute Assessment and Plan: WBC have improved overall Afebrile Hemodynamics improved Antibiotics as above Cultures negative as of now Plan DVT prophylaxis -Lovenox Stress ulcer prophylaxis -Protonix Nutrition -hold tub
[2023-07-21] MEDS: MORPHINE SULFATE (*CRX) 2 MG/ML INJ IV PUSH ×3 (13:14→20:25)
[2023-07-21] MEDS: ONDANSETRON INJ 4 MG/2 ML VIAL IV PUSH (13:14)
--- NOTE | 2023-07-21 15:45 | PM.PNGS ---
Progress Note: A&P Assessment and Plan (1) Diverticulitis large intestine: Qualifiers: Diverticulitis bleeding: without bleeding Diverticulitis complication: with perforation and abscess Qualified Code(s): K57.20 - Diverticulitis of large intestine with perforation and abscess without bleeding Code(s): K57.32 - Diverticulitis of large intestine without perforation or abscess without bleeding Status: Acute Assessment and Plan: Patient extubated today. Planning for swallow eval tomorrow. Once she is cleared to swallow, we can remove her NG tube and start an oral diet. Ostomy functioning well with liquid stool, will stop the Miralax and Reglan Continue IV antibiotics. Daily gauze dressing changes to incision. (2) Acute respiratory failure: Code(s): J96.00 - Acute respiratory failure, unspecified whether with hypoxia or hypercapnia Status: Acute Assessment and Plan: Improving, patient extubated today. Management per [employer]. (3) Shock: Code(s): R57.9 - Shock, unspecified Status: Acute Assessment and Plan: Resolving (4) Pneumonia: Code(s): J18.9 - Pneumonia, unspecified organism Status: Acute Assessment and Plan: Continue IV antibiotics (5) COPD (chronic obstructive pulmonary disease): Code(s): J44.9 - Chronic obstructive pulmonary disease, unspecified Status: Acute (6) Tobacco use: Code(s): Z72.0 - Tobacco use Status: Acute Plan I have discussed the patient's case and plan of care with Dr. Reynolds. Subjective Subjective Date/Time Seen: 07/21/23 15:45 Interval history: Patient seen in the ICU this afternoon. She has been extubated and is doing well so far. She denies any abdominal pain. Her tube feedings are on hold from the extubation. She still has an NG tube in place. Ostomy still functioning well. Exam Const: General: comfortable and awake Orientation/consciousness: patient oriented x3 GI: Inspection: non-distended and incision (dry and aleida intact, no erythema) GI Palp: Yes Soft to palpation and No Tenderness to palpation present (GI) Auscultation: normal bowel sounds Other: Ostomy functioning with liquid stool in bag Urinary Catheter: Urinary Catheter: patent and draining and urine clear Objective Data Vital Signs Vital Signs: Vital Signs - 24 hr 07/20/23 16:10 07/20/23 16:00 07/20/23 16:00 Temperature Pulse Rate 88 88 88 Respiratory Rate 20 Blood Pressure Pulse Oximetry 95 95 Oxygen Delivery Mechanical Ventilation Mechanical Ventilation Oxygen Flow Rate Fraction of Inspired Oxygen 40 40 07/20/23 16:00 07/20/23 16:00 07/20/23 17:38 Temperature 97.8 F Pulse Rate 88 Respiratory Rate 20 Blood Pressure 134/70 Pulse Oximetry 95 93 Oxygen Delivery Mechanical Ventilation Oxygen Flow Rate Fraction of Inspired Oxygen 40 30 07/20/23 18:00 07/20/23 18:00 07/20/23 20:29 Temperature Pulse Rate 71 71 70 Respiratory Rate 20 19 Blood Pressure 108/62 Pulse Oximetry 93 Oxygen Delivery Oxygen Flow Rate Fraction of Inspired Oxygen 07/20/23 20:00 07/20/23 21:10 07/20/23 20:00 Temperature Pulse Rate 71 71 71 Respiratory Rate 19 19 Blood Pressure Pulse Oximetry 95 95 Oxygen Delivery Mechanical Ventilation Mechanical Ventilation Oxygen Flow Rate Fraction of Inspired Oxygen 30 30 07/20/23 20:00 07/20/23 20:00 07/20/23 20:00 Temperature 98.7 F Pulse Rate 74 74 Respiratory Rate 16 Blood Pressure 111/81 Pulse Oximetry 95 Oxygen Delivery Oxygen Flow Rate Fraction of Inspired Oxygen 30 07/20/23 22:00 07/20/23 22:00 07/20/23 21:05 Temperature Pulse Rate 73 73 74 Respiratory Rate 16 Blood Pressure 122/88 Pulse Oximetry 95 Oxygen Delivery Oxygen Flow Rate Fraction of Inspired Oxygen 07/21/23 00:00 07/21/23 00:00 07/21/23 00:00 Temperature
[2023-07-21 17:38] LABS: Glucose Point of Care 112 mg/dl (65-105)
[2023-07-22] VITALS (22 sets, daily range): BP systolic 132–150; BP diastolic 72–82; PULSE 68–90; RESP 12–19; TEMP 36.2–37.2; O2SAT 92–97
[2023-07-22] MEDS: PIPERACILLIN/TAZ 4.5G/NS 100ML 4.5 GM/100 ML BAG IVPB ×2 (00:18→05:55)
[2023-07-22] MEDS: MORPHINE SULFATE (*CRX) 2 MG/ML INJ IV PUSH ×2 (02:25→06:25)
[2023-07-22] MEDS: ALBUTEROL SULFATE NEB 2.5 MG/3 ML INH INHALATION ×4 (02:29→19:48)
[2023-07-22] MEDS: IPRATROPIUM BR 0.02% INH SOLN 0.5 MG/2.5 ML VIAL INHALATION ×4 (02:30→19:48)
[2023-07-22 04:41] LABS: Basophils Percent Auto 0.2 % (0.2-1.2); Eosinophils Absolute Auto 0.1 K/mm3 (0-0.3); Eosinophils Percent Auto 0.9 % (0-4.4); Hematocrit 33.4 % (37.0-47.0); Hemoglobin 9.7 g/dL (12.0-15.0); Immature Granulocyte Absolute 0.05 K/mm3 (0.00-0.031); Immature Granulocyte Percent A 0.4 % (0-0.5); Lymphocytes Absolute Auto 0.91 K/mm3 (0.9-3.2); Lymphocytes Percent Auto 7.9 % (18.3-44.2); Mean Corpuscular Hemoglobin 29.7 pg (26-34); Mean Corpuscular Volume 102.1 fl (80-100); Mean Platelet Volume 10.4 fl (7.4-10.4); Monocytes Absolute Auto 0.5 K/mm3 (0.1-0.6); Monocytes Percent Auto 3.9 % (2.6-8.5); Neutrophils Absolute Auto 10.1 K/mm3 (1.3-6.7); Neutrophils Percent Auto 86.7 % (45.5-73.1); Platelet Count Result 320 k/mm3 (150-375); Red Blood Count 3.27 M/mm3 (4.2-5.4); Red Cell Distribution Width 15.5 % (11.5-14.5); White Blood Count 11.6 K/mm3 (4.5-10.0)
[2023-07-22 04:53] LABS: Anion Gap 5 mmol/L (8-16); Blood Urea Nitrogen 26 mg/dL (7-17); Calcium 8.7 mg/dL (8.4-10.2); Carbon Dioxide 30 mmol/L (22-30); Chloride 116 mmol/L (98-107); Estimated CRCL calculation 40 ml/min; Estimated Glomerular Filt Rate 45; Glucose 107 mg/dL (65-110); Potassium 3.1 mmol/L (3.4-5.0); Sodium 151 mmol/L (137-145)
[2023-07-22 05:06] LABS: Anisocytosis 2+ (NORMAL); Hypochromasia 2+ (NORMAL); Platelet Estimate Adequate (Adequate); Polychromasia 2+ (NORMAL)
[2023-07-22 05:07] LABS: Schistocytes None Seen (NORMAL)
[2023-07-22] MEDS: CENTRAL LINE FLUSH 10 ML IV PUSH ×3 (05:52→19:34)
[2023-07-22] MEDS: acetaZOLAMIDE SODIUM FOR INJ 500 MG VIAL 250 MG IV PUSH ×2 (08:11→19:34)
[2023-07-22] MEDS: PANTOPRAZOLE SODIUM IV 40 MG VIAL IV PUSH (08:11)
[2023-07-22] MEDS: KCL 40 MEQ/WATER 100 ML 100 ML 25 ML IVPB (08:12)
[2023-07-22] MEDS: ENOXAPARIN 40 MG/0.4 ML SYRINGE SUB-Q (08:12)
[2023-07-22] MEDS: MAGNESIUM SULF 2 GM/WATER 50ML 2 GM/50 ML BAG IVPB (08:13)
[2023-07-22] MEDS: POTASSIUM CHLORIDE 20 MEQ PACKET (FOR LIQUID) 40 MEQ FEED TUBE ×2 (08:13→16:37)
[2023-07-22] MEDS: MINERAL OIL/WHITE PETROLATUM OINTMENT 1 APPLIC EACH EYE (08:14)
--- NOTE | 2023-07-22 08:44 | WPDINTPN ---
Progress Note: A&P Assessment and Plan (1) Acute respiratory failure: Code(s): J96.00 - Acute respiratory failure, unspecified whether with hypoxia or hypercapnia Status: Acute Assessment and Plan: Patient does have history of COPD but appears to be having multifactorial acute respiratory failure secondary to pneumonia. Postop patient was on BiPAP and was then transitioned to Airvo. She initially tolerated Airvo for 24 hours but then deteriorated requiring intubation on 07/15. Post intubation patient remained hypoxic and had to be sedated paralyzed and placed in prone position CTA lung 1. No pulmonary embolus identified. 2. Airspace opacities of the lower lobes and lingula, left greater than right, consistent with pneumonia and atelectasis. 3. Persistent intraperitoneal fluid in the bilateral pericolic gutters and pelvis, postoperative versus abscess. Extubated on 07/20 Continue Zosyn Status post Flagyl and vancomycin since cultures and MRSA screening has been negative (07/20) Continue bronchodilators Patient diuresed well with Diamox yesterday, -creatinine slightly elevated, will diurese gently today (2) COPD (chronic obstructive pulmonary disease): Code(s): J44.9 - Chronic obstructive pulmonary disease, unspecified Status: Acute Assessment and Plan: See above (3) Pneumonia: Code(s): J18.9 - Pneumonia, unspecified organism Status: Acute Assessment and Plan: See above (4) Perforation of sigmoid colon due to diverticulitis: Code(s): K57.20 - Diverticulitis of large intestine with perforation and abscess without bleeding Status: Acute Assessment and Plan: Status post exploratory laparotomy drainage of abscess and colostomy Ostomy management per general surgery Patient did pass her bedside swallow evaluation, speech therapy recommended Minced and moist was regular liquids, will start heart healthy diet (5) Intra-abdominal abscess: Code(s): K65.1 - Peritoneal abscess Status: Acute Assessment and Plan: Discussed with general surgery. Surgeon believes the fluid in the abdomen is from the washout and third-spacing. (6) Left hip pain: Code(s): M25.552 - Pain in left hip Status: Acute Assessment and Plan: Patient has chronic left hip pain. 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 Hypernatremia: Continues to be hyponatremic. Will encourage free water intake (8) Shock: Code(s): R57.9 - Shock, unspecified Status: Acute Assessment and Plan: RESOLVED Post intubation patient became hypotensive and vasopressor started. This is likely multifactorial secondary to sepsis, positive pressure ventilation and sedation. Lactic acid level was normal and she has been afebrile. Vancomycin was added to the antibiotic coverage Off all IV fluids Vasopressors have been weaned off. Monitor and continue Levophed titration to maintain mean arterial pressure Off hydrocortisone andalbumin (9) Sepsis: Code(s): A41.9 - Sepsis, unspecified organism Status: Acute Assessment and Plan: WBC have improved overall Afebrile Hemodynamics improved Antibiotics as above Cultures negative as of now Plan DVT prophylaxis -Lovenox Stress ulcer prophylaxis -Protonix Nutrition -will start heart healthy diet, minced and moist with regular liquids as recommended by speech therapy Activity: Up in chair, PT/OT have been ordered Code Status - Full Code Total Critical Care Time - 32 minutes Discussed with patient and family at bedside and updated them with patient's condition and plan of care. I did discuss with them regarding placing patient on a breathing trial and will evaluate
[2023-07-22] MEDS: BUDESONIDE RESPULE NEB 0.5 MG/2 ML AMP INHALATION ×2 (09:20→19:48)
[2023-07-22] MEDS: FUROSEMIDE 20 MG TABLET PO (09:32)
--- NOTE | 2023-07-22 09:33 | PCSTNOTE ---
Please refer to the Bedside Swallow Evaluation in the EMR. Please note, silent aspiration cannot be ruled out at bedside.
[2023-07-22 11:04] LABS: Triglycerides 235 mg/dL (<150)
--- NOTE | 2023-07-22 11:37 | PCFNICU ---
ICU Rounding Note: Pt current nutrition is Minced and Moist, Level 5/Heart Healthy. Last recorded weight is 68.8 kg, up from 64.4 kg on admit Bowel Motility:ostomy Labs Reviewed:Cr 1.2,Na 151, GFR 45, Cr 1.2,BUN 26 Meds Noted:Atrovent Skin: abdominal incision Additional Notes: Patient had bedside swallow study today, recommending Minced and Moist, Level 5. Patient will start diet at lunch. Agree with diet orders. Monitor oral intake, wt, labs, skin every 5 days.
--- NOTE | 2023-07-22 11:56 | PM.PNGS ---
Progress Note: A&P Assessment and Plan (1) Diverticulitis large intestine: Qualifiers: Diverticulitis bleeding: without bleeding Diverticulitis complication: with perforation and abscess Qualified Code(s): K57.20 - Diverticulitis of large intestine with perforation and abscess without bleeding Code(s): K57.32 - Diverticulitis of large intestine without perforation or abscess without bleeding Status: Acute Assessment and Plan: Passed swallow eval. Okay to start an oral diet per speech therapy recommendations. Will remove NG tube. Ostomy functioning well IV antibiotics stopped today (received a total of 14 days) (2) Acute respiratory failure: Code(s): J96.00 - Acute respiratory failure, unspecified whether with hypoxia or hypercapnia Status: Acute Assessment and Plan: Resolved. Plan to transfer out of the ICU today. (3) Shock: Code(s): R57.9 - Shock, unspecified Status: Acute Assessment and Plan: Resolved. (4) Pneumonia: Code(s): J18.9 - Pneumonia, unspecified organism Status: Acute (5) COPD (chronic obstructive pulmonary disease): Code(s): J44.9 - Chronic obstructive pulmonary disease, unspecified Status: Acute (6) Tobacco use: Code(s): Z72.0 - Tobacco use Status: Acute Plan I have discussed the patient's case and plan of care with Dr. Reynolds. Subjective Subjective Date/Time Seen: 07/22/23 10:56 Patient reports: no new complaints, feels better and afebrile Interval history: Patient seen in the ICU with the nurse at the bedside. She is doing well today. Her respiratory status has been stable overnight. She passed her swallow test today and was recommended to have a minced & moist diet with regular liquids. She denies any abdominal pain or nausea. Ostomy is functioning. There is no output documented but per nursing there has been stool coming from ostomy through the night and this morning. Exam Const: General: comfortable and awake Orientation/consciousness: patient oriented x3 GI: Inspection: non-distended and incision (dry and aleida intact, no erythema) GI Palp: Yes Soft to palpation, No Tenderness to palpation present (GI) and No Guarding due to palpation present (GI) Auscultation: normal bowel sounds Other: Ostomy functioning with liquid stool in bag Urinary Catheter: Urinary Catheter: patent and draining and urine clear Extrem: General: no calf tenderness and no edema Psych: Mental Status: mental status grossly normal Insight: Good insight present (Psych) Objective Data Vital Signs Vital Signs: Vital Signs - 24 hr 07/21/23 12:00 07/21/23 12:00 07/21/23 12:00 Temperature 99.2 F Pulse Rate 92 92 92 Respiratory Rate 18 18 Blood Pressure 128/75 Pulse Oximetry 97 97 Oxygen Delivery Nasal Cannula Oxygen Flow Rate 2 07/21/23 13:39 07/21/23 13:50 07/21/23 14:00 Temperature Pulse Rate 88 90 84 Respiratory Rate 14 20 Blood Pressure Pulse Oximetry Oxygen Delivery Oxygen Flow Rate 07/21/23 14:00 07/21/23 16:00 07/21/23 16:00 Temperature Pulse Rate 84 80 80 Respiratory Rate 18 16 Blood Pressure 128/73 Pulse Oximetry 94 97 Oxygen Delivery Nasal Cannula Oxygen Flow Rate 2 07/21/23 16:00 07/21/23 18:00 07/21/23 18:00 Temperature 99.0 F Pulse Rate 80 80 80 Respiratory Rate 16 16 Blood Pressure 126/71 120/72 Pulse Oximetry 97 95 Oxygen Delivery Oxygen Flow Rate 07/21/23 19:42 07/21/23 19:43 07/21/23 19:58 Temperature Pulse Rate 78 80 Respiratory Rate 14 13 Blood Pressure Pulse Oximetry 97 Oxygen Delivery Nasal Cannula Oxygen Flow Rate 2 07/21/23 20:00 07/21/23 20:00 07/21/23 20:00 Temperature 99.0 F Pulse Rate 86 81 Respiratory Rate 16 Blood Pressure 136/76 Pulse Oximetry 95 95 Oxygen Delivery Nasal Cannula Oxygen Flow Rate 2 07/21/23 22:00 07/21/23 22:00 07/22/23 0
[2023-07-23] VITALS (14 sets, daily range): BP systolic 130–137; BP diastolic 74–86; PULSE 72–83; RESP 14–18; TEMP 36.2–36.9; O2SAT 91–93
[2023-07-23] MEDS: IPRATROPIUM BR 0.02% INH SOLN 0.5 MG/2.5 ML VIAL INHALATION ×4 (01:58→20:49)
[2023-07-23] MEDS: ALBUTEROL SULFATE NEB 2.5 MG/3 ML INH INHALATION ×4 (01:58→20:49)
[2023-07-23 04:45] LABS: Basophils Percent Auto 0.1 % (0.2-1.2); Eosinophils Absolute Auto 0.1 K/mm3 (0-0.3); Eosinophils Percent Auto 0.9 % (0-4.4); Hematocrit 30.7 % (37.0-47.0); Hemoglobin 9.4 g/dL (12.0-15.0); Immature Granulocyte Absolute 0.04 K/mm3 (0.00-0.031); Immature Granulocyte Percent A 0.3 % (0-0.5); Lymphocytes Absolute Auto 1.27 K/mm3 (0.9-3.2); Lymphocytes Percent Auto 11.1 % (18.3-44.2); Mean Corpuscular HGB Conc 30.6 g/dl (32-36); Mean Corpuscular Hemoglobin 29.7 pg (26-34); Mean Corpuscular Volume 97.2 fl (80-100); Monocytes Absolute Auto 0.5 K/mm3 (0.1-0.6); Neutrophils Absolute Auto 9.6 K/mm3 (1.3-6.7); Neutrophils Percent Auto 83.6 % (45.5-73.1); Platelet Count Result 303 k/mm3 (150-375); Red Blood Count 3.16 M/mm3 (4.2-5.4); Red Cell Distribution Width 15.2 % (11.5-14.5); White Blood Count 11.5 K/mm3 (4.5-10.0)
[2023-07-23 05:02] LABS: Alanine Aminotransferase 15 U/L (6-35); Albumin Level 3.1 g/dL (3.5-5.1); Alkaline Phosphatase 52 U/L (38-126); Anion Gap 6 mmol/L (8-16); Aspartate Amino Transferase 28 U/L (14-36); Bilirubin,Total 0.4 mg/dL (0.2-1.3); Blood Urea Nitrogen 19 mg/dL (7-17); Calcium 8.4 mg/dL (8.4-10.2); Carbon Dioxide 25 mmol/L (22-30); Chloride 112 mmol/L (98-107); Estimated CRCL calculation 44 ml/min; Estimated Glomerular Filt Rate 50; Glucose 110 mg/dL (65-110); Magnesium 2.4 mg/dL (1.6-2.3); Potassium 2.8 mmol/L (3.4-5.0); Sodium 143 mmol/L (137-145)
[2023-07-23] MEDS: CENTRAL LINE FLUSH 10 ML IV PUSH ×3 (05:31→20:34)
[2023-07-23] MEDS: BUDESONIDE RESPULE NEB 0.5 MG/2 ML AMP INHALATION ×2 (07:29→20:49)
[2023-07-23] MEDS: ENOXAPARIN 40 MG/0.4 ML SYRINGE SUB-Q (09:03)
[2023-07-23] MEDS: PANTOPRAZOLE SODIUM IV 40 MG VIAL IV PUSH (09:04)
[2023-07-23] MEDS: SILVERGEL (ELTA) 45 ML 1 APPLIC TOPICAL (09:04)
[2023-07-23] MEDS: acetaZOLAMIDE SODIUM FOR INJ 500 MG VIAL 250 MG IV PUSH ×2 (09:04→20:33)
[2023-07-23] MEDS: KCL 40 MEQ/WATER 100 ML 100 ML 25 ML IVPB (09:05)
--- NOTE | 2023-07-23 14:29 | PM.PNGS ---
Progress Note: A&P Assessment and Plan (1) Diverticulitis large intestine: Qualifiers: Diverticulitis bleeding: without bleeding Diverticulitis complication: with perforation and abscess Qualified Code(s): K57.20 - Diverticulitis of large intestine with perforation and abscess without bleeding Code(s): K57.32 - Diverticulitis of large intestine without perforation or abscess without bleeding Status: Acute Assessment and Plan: Tolerating a soft diet. Ostomy functioning well. Incision is healing well. Continue PT/OT and increasing activity as tolerated. Plan to move her out of ICU once a bed is available, no longer ICU status. (2) Acute respiratory failure: Code(s): J96.00 - Acute respiratory failure, unspecified whether with hypoxia or hypercapnia Status: Acute Assessment and Plan: Resolved. (3) Shock: Code(s): R57.9 - Shock, unspecified Status: Acute Assessment and Plan: Resolved. (4) Pneumonia: Code(s): J18.9 - Pneumonia, unspecified organism Status: Acute (5) COPD (chronic obstructive pulmonary disease): Code(s): J44.9 - Chronic obstructive pulmonary disease, unspecified Status: Acute (6) Tobacco use: Code(s): Z72.0 - Tobacco use Status: Acute Plan I have discussed the patient's case and plan of care with Dr. Reynolds. Subjective Subjective Date/Time Seen: 07/23/23 14:29 Post Op day: 10 (Ex lap, drainage of intra-abdominal abscess, sigmoid colectomy with end descending colostomy) Patient reports: no new complaints, feels better and afebrile Interval history: Patient still in the ICU, but as an IMU overflow patient. She has been up to the chair for a few hours. She still has some generalized weakness, but feels better today. She denies any abdominal pain, nausea, vomiting, or bloating. She is tolerating her minced and moist diet. She is now on room air. No other complaints at [place] [address] today. Review of Systems Review of Systems: ROS unchanged Exam Const: General: comfortable and awake Orientation/consciousness: patient oriented x3 GI: Inspection: non-distended and incision (dry and aleida intact, no erythema) GI Palp: Yes Soft to palpation, No Tenderness to palpation present (GI) and No Guarding due to palpation present (GI) Auscultation: normal bowel sounds Other: Ostomy functioning with liquid stool in bag Neuro: General: moves all extremities and no focal motor deficits Extrem: General: no calf tenderness Objective Data Vital Signs Vital Signs: Vital Signs - 24 hr 07/22/23 14:52 07/22/23 14:54 07/22/23 15:04 Temperature Pulse Rate 78 77 80 Respiratory Rate 15 15 18 Blood Pressure Pulse Oximetry 92 Oxygen Delivery Room Air Fraction of Inspired Oxygen 07/22/23 15:59 07/22/23 19:36 07/22/23 19:41 Temperature 98.4 F Pulse Rate 76 81 Respiratory Rate 17 16 Blood Pressure 132/73 138/76 Pulse Oximetry 93 93 Oxygen Delivery Room Air Fraction of Inspired Oxygen 07/22/23 19:50 07/22/23 19:50 07/22/23 20:05 Temperature Pulse Rate 82 82 83 Respiratory Rate 16 16 18 Blood Pressure Pulse Oximetry 93 Oxygen Delivery Room Air Fraction of Inspired Oxygen 07/23/23 00:00 07/23/23 02:01 07/23/23 02:08 Temperature 98.3 F Pulse Rate 76 80 82 Respiratory Rate 14 16 18 Blood Pressure 130/86 Pulse Oximetry 93 Oxygen Delivery Fraction of Inspired Oxygen 07/23/23 04:51 07/23/23 07:27 07/23/23 07:30 Temperature 98.5 F Pulse Rate 78 79 76 Respiratory Rate 16 16 16 Blood Pressure 135/78 137/78 Pulse Oximetry 93 91 93 Oxygen Delivery Room Air Fraction of Inspired Oxygen 07/23/23 07:30 07/23/23 08:00 07/23/23 08:00 Temperature Pulse Rate 76 72 72 Respiratory Rate 16 16 16 Blood Pressure Pulse Oximetry 93 Oxygen Delivery Room Air Fraction
--- NOTE | 2023-07-23 14:41 | PM.IMPN ---
Progress Note: A&P Assessment and Plan (1) Acute respiratory failure: Code(s): J96.00 - Acute respiratory failure, unspecified whether with hypoxia or hypercapnia Status: Acute Assessment and Plan: Patient does have history of COPD but appears to be having multifactorial acute respiratory failure secondary to pneumonia. Postop patient was on BiPAP and was then transitioned to Airvo. She initially tolerated Airvo for 24 hours but then deteriorated requiring intubation on 07/15. Post intubation patient remained hypoxic and had to be sedated paralyzed and placed in prone position CTA lung 1. No pulmonary embolus identified. 2. Airspace opacities of the lower lobes and lingula, left greater than right, consistent with pneumonia and atelectasis. 3. Persistent intraperitoneal fluid in the bilateral pericolic gutters and pelvis, postoperative versus abscess. Extubated on 07/20 Continue Zosyn Status post Flagyl and vancomycin since cultures and MRSA screening has been negative (07/20) Continue bronchodilators Patient diuresed well with Diamox Currently on room air will hold any further diuresis today recheck in a.m. Will hold her Diamox as metabolic alkalosis improved (2) COPD (chronic obstructive pulmonary disease): Code(s): J44.9 - Chronic obstructive pulmonary disease, unspecified Status: Acute Assessment and Plan: See above (3) Pneumonia: Code(s): J18.9 - Pneumonia, unspecified organism Status: Acute Assessment and Plan: See above (4) Perforation of sigmoid colon due to diverticulitis: Code(s): K57.20 - Diverticulitis of large intestine with perforation and abscess without bleeding Status: Acute Assessment and Plan: Status post exploratory laparotomy drainage of abscess and colostomy Ostomy management per general surgery Patient did pass her bedside swallow evaluation, speech therapy recommended Minced and moist was regular liquids, started on heart healthy diet (5) Intra-abdominal abscess: Code(s): K65.1 - Peritoneal abscess Status: Acute Assessment and Plan: Discussed with general surgery. Surgeon believes the fluid in the abdomen is from the washout and third-spacing. (6) Left hip pain: Code(s): M25.552 - Pain in left hip Status: Acute Assessment and Plan: Patient has chronic left hip pain. 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 Hypernatremia: Improved today encourage free water intake (8) Shock: Code(s): R57.9 - Shock, unspecified Status: Acute Assessment and Plan: RESOLVED Post intubation patient became hypotensive and vasopressor started. This is likely multifactorial secondary to sepsis, positive pressure ventilation and sedation. Lactic acid level was normal and she has been afebrile. Vancomycin was added to the antibiotic coverage Off all IV fluids Vasopressors have been weaned off. Monitor and continue Levophed titration to maintain mean arterial pressure Off hydrocortisone and albumin (9) Sepsis: Code(s): A41.9 - Sepsis, unspecified organism Status: Acute Assessment and Plan: WBC have improved overall Afebrile Hemodynamics improved Antibiotics as above Cultures negative as of now Plan DVT prophylaxis -Lovenox Stress ulcer prophylaxis -Protonix Nutrition -will start heart healthy diet, minced and moist with regular liquids as recommended by speech therapy Activity: Up in chair, PT/OT have been ordered Code Status - Full Code Subjective Date/time seen: 07/23/23 14:41 Interval history: No overnight events. Discussed the nursing staff. Patient up to the chair. In room air. Denies any abdominal pain. Family at b
[2023-07-23] MEDS: POTASSIUM CHLORIDE 20 MEQ ER TABLET 40 MEQ PO (16:20)
--- NOTE | 2023-07-23 22:36 | PC.NURSE ---
This patient, Norma Steiner, was transferred to [[id number]] on 07/23/23 at 2225. Personal belongings sent with patient. Report given to [ELSI Chun]. Appropriate documentation sent with patient.
--- NOTE | 2023-07-23 23:05 | PC.NURSE ---
Patient's Garett notified of patient's transfer to [facility]. No one available when called at 2300, so message was left that patient had transferred out of ICU to [address] [place] [address].
[2023-07-24] VITALS (11 sets, daily range): BP systolic 120–130; BP diastolic 60–69; PULSE 79–92; RESP 16–20; TEMP 35.9–36.8; O2SAT 91–95
[2023-07-24] MEDS: IPRATROPIUM BR 0.02% INH SOLN 0.5 MG/2.5 ML VIAL INHALATION ×4 (03:27→20:26)
[2023-07-24] MEDS: ALBUTEROL SULFATE NEB 2.5 MG/3 ML INH INHALATION ×4 (03:27→20:26)
[2023-07-24] MEDS: CENTRAL LINE FLUSH 10 ML IV PUSH ×3 (04:54→20:43)
[2023-07-24 05:00] LABS: Basophils Percent Auto 0.2 % (0.2-1.2); Eosinophils Absolute Auto 0.1 K/mm3 (0-0.3); Eosinophils Percent Auto 0.6 % (0-4.4); Hematocrit 30.8 % (37.0-47.0); Hemoglobin 9.7 g/dL (12.0-15.0); Immature Granulocyte Absolute 0.06 K/mm3 (0.00-0.031); Immature Granulocyte Percent A 0.5 % (0-0.5); Lymphocytes Absolute Auto 1.46 K/mm3 (0.9-3.2); Lymphocytes Percent Auto 13.1 % (18.3-44.2); Mean Corpuscular HGB Conc 31.5 g/dl (32-36); Mean Corpuscular Hemoglobin 29.8 pg (26-34); Mean Corpuscular Volume 94.8 fl (80-100); Mean Platelet Volume 10.2 fl (7.4-10.4); Monocytes Absolute Auto 0.5 K/mm3 (0.1-0.6); Monocytes Percent Auto 4.8 % (2.6-8.5); Neutrophils Percent Auto 80.8 % (45.5-73.1); Platelet Count Result 320 k/mm3 (150-375); Red Blood Count 3.25 M/mm3 (4.2-5.4); Red Cell Distribution Width 14.6 % (11.5-14.5); White Blood Count 11.2 K/mm3 (4.5-10.0)
[2023-07-24 05:12] LABS: Anion Gap 8 mmol/L (8-16); Blood Urea Nitrogen 16 mg/dL (7-17); Calcium 8.2 mg/dL (8.4-10.2); Carbon Dioxide 20 mmol/L (22-30); Chloride 109 mmol/L (98-107); Estimated CRCL calculation 53 ml/min; Estimated Glomerular Filt Rate > 60; Glucose 101 mg/dL (65-110); Magnesium 2.1 mg/dL (1.6-2.3); Potassium 3.1 mmol/L (3.4-5.0); Sodium 137 mmol/L (137-145)
[2023-07-24] MEDS: BUDESONIDE RESPULE NEB 0.5 MG/2 ML AMP INHALATION ×2 (07:41→20:27)
[2023-07-24] MEDS: PANTOPRAZOLE SODIUM IV 40 MG VIAL IV PUSH (09:59)
[2023-07-24] MEDS: FUROSEMIDE 40 MG TABLET PO (09:59)
[2023-07-24] MEDS: ENOXAPARIN 40 MG/0.4 ML SYRINGE SUB-Q (09:59)
[2023-07-24] MEDS: acetaZOLAMIDE SODIUM FOR INJ 500 MG VIAL 250 MG IV PUSH (10:04)
[2023-07-24] MEDS: POTASSIUM CHLORIDE 20 MEQ ER TABLET 40 MEQ PO (10:10)
--- NOTE | 2023-07-24 13:43 | PM.IMPN ---
Progress Note: A&P Assessment and Plan (1) Acute respiratory failure: Code(s): J96.00 - Acute respiratory failure, unspecified whether with hypoxia or hypercapnia Status: Acute Assessment and Plan: Patient does have history of COPD but appears to be having multifactorial acute respiratory failure secondary to pneumonia. Postop patient was on BiPAP and was then transitioned to Airvo. She initially tolerated Airvo for 24 hours but then deteriorated requiring intubation on 07/15. Post intubation patient remained hypoxic and had to be sedated paralyzed and placed in prone position CTA lung 1. No pulmonary embolus identified. 2. Airspace opacities of the lower lobes and lingula, left greater than right, consistent with pneumonia and atelectasis. 3. Persistent intraperitoneal fluid in the bilateral pericolic gutters and pelvis, postoperative versus abscess. Extubated on 07/20 Continue Zosyn Status post Flagyl and vancomycin since cultures and MRSA screening has been negative (07/20) Continue bronchodilators Patient diuresed well with Diamox Currently on room air Chest x-ray with bibasilar congestion. Will give a dose of oral Lasix today Will stop Diamox (2) COPD (chronic obstructive pulmonary disease): Code(s): J44.9 - Chronic obstructive pulmonary disease, unspecified Status: Acute Assessment and Plan: See above (3) Pneumonia: Code(s): J18.9 - Pneumonia, unspecified organism Status: Acute Assessment and Plan: See above (4) Perforation of sigmoid colon due to diverticulitis: Code(s): K57.20 - Diverticulitis of large intestine with perforation and abscess without bleeding Status: Acute Assessment and Plan: Status post exploratory laparotomy drainage of abscess and colostomy Ostomy management per general surgery Patient did pass her bedside swallow evaluation, speech therapy recommended Minced and moist was regular liquids, started on heart healthy diet (5) Intra-abdominal abscess: Code(s): K65.1 - Peritoneal abscess Status: Acute Assessment and Plan: Discussed with general surgery. Surgeon believes the fluid in the abdomen is from the washout and third-spacing. (6) Left hip pain: Code(s): M25.552 - Pain in left hip Status: Acute Assessment and Plan: Patient has chronic left hip pain. 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 Hypernatremia: Improved today encourage free water intake (8) Shock: Code(s): R57.9 - Shock, unspecified Status: Acute Assessment and Plan: RESOLVED Post intubation patient became hypotensive and vasopressor started. This is likely multifactorial secondary to sepsis, positive pressure ventilation and sedation. Lactic acid level was normal and she has been afebrile. Vancomycin was added to the antibiotic coverage Off all IV fluids Vasopressors have been weaned off. Monitor and continue Levophed titration to maintain mean arterial pressure Off hydrocortisone and albumin (9) Sepsis: Code(s): A41.9 - Sepsis, unspecified organism Status: Acute Assessment and Plan: WBC have improved overall Afebrile Hemodynamics improved Antibiotics as above Cultures negative as of now Plan DVT prophylaxis -Lovenox Stress ulcer prophylaxis -Protonix Nutrition -will start heart healthy diet, minced and moist with regular liquids as recommended by speech therapy Activity: Up in chair, PT/OT have been ordered Code Status - Full Code Subjective Date/time seen: 07/24/23 13:43 Interval history: Feeling better. Minimal cough. Shortness of breath has improved. No leg swelling. No abdominal pain. Review of Systems Review of System
--- NOTE | 2023-07-24 16:28 | PM.PNGS ---
Progress Note: A&P Assessment and Plan (1) Diverticulitis large intestine: Qualifiers: Diverticulitis bleeding: without bleeding Diverticulitis complication: with perforation and abscess Qualified Code(s): K57.20 - Diverticulitis of large intestine with perforation and abscess without bleeding Code(s): K57.32 - Diverticulitis of large intestine without perforation or abscess without bleeding Status: Acute Assessment and Plan: Tolerating a soft diet. Ostomy functioning well. Incision is healing well. Continue PT/OT and increasing activity as tolerated. Daily wound care with 4 x 4 gauze and tape, could consider removing some of the aleida if still having bloody drainage. (2) Acute respiratory failure: Code(s): J96.00 - Acute respiratory failure, unspecified whether with hypoxia or hypercapnia Status: Acute Assessment and Plan: Resolved. (3) Shock: Code(s): R57.9 - Shock, unspecified Status: Acute Assessment and Plan: Resolved. (4) Pneumonia: Code(s): J18.9 - Pneumonia, unspecified organism Status: Acute (5) COPD (chronic obstructive pulmonary disease): Code(s): J44.9 - Chronic obstructive pulmonary disease, unspecified Status: Acute (6) Tobacco use: Code(s): Z72.0 - Tobacco use Status: Acute Subjective Subjective Date/Time Seen: 07/24/23 16:28 Interval history: Tolerating regular diet. No significant abdominal pain. No fevers. Breathing slowly improving. Weak, but slowly ambulating more with assistance. Exam Const: General: comfortable and awake Orientation/consciousness: patient oriented x3 GI: Inspection: non-distended and incision (aleida intact, no erythema, minimal bloody drainage) GI Palp: Yes Soft to palpation, No Tenderness to palpation present (GI) and No Guarding due to palpation present (GI) Auscultation: normal bowel sounds Other: Ostomy functioning with liquid stool in bag Neuro: General: moves all extremities and no focal motor deficits Extrem: General: no calf tenderness Objective Data Vital Signs Vital Signs: Vital Signs - 24 hr 07/23/23 20:51 07/23/23 20:52 07/23/23 20:00 Temperature Pulse Rate 75 75 Respiratory Rate 16 16 Blood Pressure Pulse Oximetry 93 93 Oxygen Delivery Room Air Room Air Fraction of Inspired Oxygen 21 07/23/23 22:25 07/24/23 03:29 07/23/23 21:14 Temperature Pulse Rate 79 80 Respiratory Rate 16 16 Blood Pressure Pulse Oximetry Oxygen Delivery Room Air Fraction of Inspired Oxygen 07/24/23 05:51 07/24/23 03:50 07/24/23 07:41 Temperature 36.8 C Pulse Rate 86 83 84 Respiratory Rate 18 16 16 Blood Pressure 129/69 Pulse Oximetry 95 Oxygen Delivery Fraction of Inspired Oxygen 07/24/23 07:41 07/24/23 08:02 07/24/23 13:25 Temperature Pulse Rate 89 87 Respiratory Rate 16 18 Blood Pressure Pulse Oximetry 93 Oxygen Delivery Room Air Fraction of Inspired Oxygen 07/24/23 13:41 07/24/23 14:07 Temperature 35.9 C L Pulse Rate 89 92 Respiratory Rate 18 18 Blood Pressure 120/60 Pulse Oximetry 93 Oxygen Delivery Fraction of Inspired Oxygen Intake/Output Intake/Output: Intake & Output 07/21/23 07/22/23 07/23/23 07/24/23 23:59 23:59 23:59 23:59 Intake Total 1894 1270 1257 720 Output Total 4025 3800 2850 1100 [facility] -2131 [phone] -380 Meds/Results Medications: Active Medications Generic Name Dose Route Start Last Admin Trade Name Freq PRN Reason Stop Dose Admin Albuterol 2 puff 07/07/23 23:26 07/08/23 11:51 Albuterol Sulfate (*Sp) Aerosol 1 Puff INHALATION 2 puff BID PRN Administration Shortness Of Breath Albuterol 2.5 mg 07/10/23 14:00 07/24/23 13:25 Albuterol Sulfate Neb 2.5 Mg/3 Ml Inh INHALATION 2.5 mg Q6HRT ERIN Administration Budesonide 0.5 mg 07/10/23 20:00 07/24/23 07:41 Budesonide Respule N
[2023-07-25] VITALS (7 sets, daily range): BP systolic 131–142; BP diastolic 60–75; PULSE 85–94; RESP 16–20; TEMP 36.6–37.1; O2SAT 92–97
[2023-07-25] MEDS: IPRATROPIUM BR 0.02% INH SOLN 0.5 MG/2.5 ML VIAL INHALATION ×2 (02:29→13:17)
[2023-07-25] MEDS: ALBUTEROL SULFATE NEB 2.5 MG/3 ML INH INHALATION ×2 (02:29→13:17)
[2023-07-25 04:28] LABS: Basophils Percent Auto 0.2 % (0.2-1.2); Eosinophils Absolute Auto 0.1 K/mm3 (0-0.3); Eosinophils Percent Auto 0.5 % (0-4.4); Hematocrit 30.1 % (37.0-47.0); Hemoglobin 9.7 g/dL (12.0-15.0); Immature Granulocyte Absolute 0.05 K/mm3 (0.00-0.031); Immature Granulocyte Percent A 0.4 % (0-0.5); Lymphocytes Absolute Auto 1.14 K/mm3 (0.9-3.2); Lymphocytes Percent Auto 8.8 % (18.3-44.2); Mean Corpuscular HGB Conc 32.2 g/dl (32-36); Mean Corpuscular Hemoglobin 30.2 pg (26-34); Mean Corpuscular Volume 93.8 fl (80-100); Mean Platelet Volume 9.9 fl (7.4-10.4); Monocytes Absolute Auto 0.7 K/mm3 (0.1-0.6); Monocytes Percent Auto 5.2 % (2.6-8.5); Neutrophils Percent Auto 84.9 % (45.5-73.1); Platelet Count Result 296 k/mm3 (150-375); Red Blood Count 3.21 M/mm3 (4.2-5.4); Red Cell Distribution Width 14.9 % (11.5-14.5); White Blood Count 12.9 K/mm3 (4.5-10.0)
[2023-07-25 04:40] LABS: Alanine Aminotransferase 21 U/L (6-35); Albumin Level 3.2 g/dL (3.5-5.1); Alkaline Phosphatase 67 U/L (38-126); Anion Gap 6 mmol/L (8-16); Aspartate Amino Transferase 33 U/L (14-36); Bilirubin,Total 0.5 mg/dL (0.2-1.3); Blood Urea Nitrogen 15 mg/dL (7-17); Calcium 8.3 mg/dL (8.4-10.2); Carbon Dioxide 22 mmol/L (22-30); Chloride 108 mmol/L (98-107); Estimated CRCL calculation 44 ml/min; Estimated Glomerular Filt Rate 50; Glucose 121 mg/dL (65-110); Magnesium 1.9 mg/dL (1.6-2.3); Potassium 2.9 mmol/L (3.4-5.0); Sodium 136 mmol/L (137-145)
[2023-07-25] MEDS: CENTRAL LINE FLUSH 10 ML IV PUSH ×3 (05:15→20:09)
[2023-07-25] MEDS: PANTOPRAZOLE SODIUM IV 40 MG VIAL IV PUSH (09:29)
[2023-07-25] MEDS: ENOXAPARIN 40 MG/0.4 ML SYRINGE SUB-Q (09:29)
[2023-07-25] MEDS: POTASSIUM CHLORIDE 20 MEQ ER TABLET 40 MEQ PO ×2 (09:29→13:33)
--- NOTE | 2023-07-25 12:51 | PM.IMPN ---
Progress Note: A&P Assessment and Plan (1) Acute respiratory failure: Code(s): J96.00 - Acute respiratory failure, unspecified whether with hypoxia or hypercapnia Status: Acute Assessment and Plan: Patient does have history of COPD but appears to be having multifactorial acute respiratory failure secondary to pneumonia. Postop patient was on BiPAP and was then transitioned to Airvo. She initially tolerated Airvo for 24 hours but then deteriorated requiring intubation on 07/15. Post intubation patient remained hypoxic and had to be sedated paralyzed and placed in prone position CTA lung 1. No pulmonary embolus identified. 2. Airspace opacities of the lower lobes and lingula, left greater than right, consistent with pneumonia and atelectasis. 3. Persistent intraperitoneal fluid in the bilateral pericolic gutters and pelvis, postoperative versus abscess. Extubated on 07/20 Continue Zosyn Status post Flagyl and vancomycin since cultures and MRSA screening has been negative (07/20) Continue bronchodilators Patient diuresed well with Diamox Currently on room air Chest x-ray with bibasilar congestion. Received Lasix 07/24 Stop Diamox (2) COPD (chronic obstructive pulmonary disease): Code(s): J44.9 - Chronic obstructive pulmonary disease, unspecified Status: Acute Assessment and Plan: See above (3) Pneumonia: Code(s): J18.9 - Pneumonia, unspecified organism Status: Acute Assessment and Plan: See above (4) Perforation of sigmoid colon due to diverticulitis: Code(s): K57.20 - Diverticulitis of large intestine with perforation and abscess without bleeding Status: Acute Assessment and Plan: Status post exploratory laparotomy drainage of abscess and colostomy Ostomy management per general surgery Patient did pass her bedside swallow evaluation, speech therapy recommended Minced and moist was regular liquids, started on heart healthy diet (5) Intra-abdominal abscess: Code(s): K65.1 - Peritoneal abscess Status: Acute Assessment and Plan: Discussed with general surgery. Surgeon believes the fluid in the abdomen is from the washout and third-spacing. (6) Left hip pain: Code(s): M25.552 - Pain in left hip Status: Acute Assessment and Plan: Patient has chronic left hip pain. 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 Hypernatremia: Improved today encourage free water intake (8) Shock: Code(s): R57.9 - Shock, unspecified Status: Acute Assessment and Plan: RESOLVED Post intubation patient became hypotensive and vasopressor started. This is likely multifactorial secondary to sepsis, positive pressure ventilation and sedation. Lactic acid level was normal and she has been afebrile. Vancomycin was added to the antibiotic coverage Off all IV fluids Vasopressors have been weaned off. Monitor and continue Levophed titration to maintain mean arterial pressure Off hydrocortisone and albumin (9) Sepsis: Code(s): A41.9 - Sepsis, unspecified organism Status: Acute Assessment and Plan: WBC have improved overall Afebrile Hemodynamics improved Antibiotics as above Cultures negative as of now Plan DVT prophylaxis -Lovenox Stress ulcer prophylaxis -Protonix Nutrition -will start heart healthy diet, minced and moist with regular liquids as recommended by speech therapy Activity: Up in chair, PT/OT have been ordered Code Status - Full Code Subjective Date/time seen: 07/25/23 12:51 Interval history: No fever chills. Some bleeding from her surgical site. Labs were reviewed. She reports shortness of breath has improved. She denies any abdominal pain. No nause
--- NOTE | 2023-07-25 16:12 | PM.PNGS ---
Progress Note: A&P Assessment and Plan (1) Perforation of sigmoid colon due to diverticulitis: Code(s): K57.20 - Diverticulitis of large intestine with perforation and abscess without bleeding Status: Acute Assessment and Plan: Making good progress. Wound healing well and colostomy working well. (2) COPD (chronic obstructive pulmonary disease): Qualifiers: COPD type: unspecified COPD Qualified Code(s): J44.9 - Chronic obstructive pulmonary disease, unspecified Code(s): J44.9 - Chronic obstructive pulmonary disease, unspecified Status: Acute (3) Tobacco use: Code(s): Z72.0 - Tobacco use Status: Acute Subjective Subjective Date/Time Seen: 07/25/23 16:12 Post Op day: #12 Patient reports: no new complaints, tolerating a regular diet, bowel movement (Per colostomy) and afebrile Exam Const: General: comfortable, no acute distress, alert and awake GI: Inspection: incision (Intact but with some dry crusted blood. No sign infection or hematoma.) and other (Colostomy working well) GI Palp: Yes Soft to palpation, No Tenderness to palpation present (GI), No Guarding due to palpation present (GI) and No Rebound tenderness present Neuro: General: no focal motor deficits Extrem: General: no calf tenderness and no edema Objective Data Vital Signs Vital Signs: Vital Signs - 24 hr 07/24/23 19:50 07/24/23 20:45 07/25/23 00:00 Temperature 36.8 C 37.0 C Pulse Rate 87 93 Respiratory Rate 20 20 Blood Pressure 130/68 134/69 Pulse Oximetry 93 92 Oxygen Delivery Room Air Fraction of Inspired Oxygen 07/24/23 20:28 07/24/23 20:28 07/24/23 20:45 Temperature Pulse Rate 84 88 Respiratory Rate 18 18 Blood Pressure Pulse Oximetry 91 Oxygen Delivery Room Air Fraction of Inspired Oxygen 21 07/25/23 02:34 07/25/23 04:41 07/25/23 08:00 Temperature 36.6 C Pulse Rate 85 86 Respiratory Rate 18 20 Blood Pressure 131/60 Pulse Oximetry 97 Oxygen Delivery Room Air Fraction of Inspired Oxygen 07/25/23 13:17 07/25/23 13:30 07/25/23 13:59 Temperature 36.8 C Pulse Rate 90 92 94 Respiratory Rate 18 18 20 Blood Pressure 135/68 Pulse Oximetry 97 Oxygen Delivery Fraction of Inspired Oxygen Intake/Output Intake/Output: Intake & Output 07/22/23 07/23/23 07/24/23 07/25/23 23:59 23:59 23:59 23:59 Intake Total 1270 1257 960 410 Output Total 3800 2850 1800 200 [facility] -0699 -1593 -840 210 Meds/Results Medications: Active Medications Generic Name Dose Route Start Last Admin Trade Name Freq PRN Reason Stop Dose Admin Albuterol 2 puff 07/07/23 23:26 07/08/23 11:51 Albuterol Sulfate (*Sp) Aerosol 1 Puff INHALATION 2 puff BID PRN Administration Shortness Of Breath Albuterol 2.5 mg 07/10/23 14:00 07/25/23 13:17 Albuterol Sulfate Neb 2.5 Mg/3 Ml Inh INHALATION 2.5 mg Q6HRT ERIN Administration Budesonide 0.5 mg 07/10/23 20:00 07/25/23 08:57 Budesonide Respule Neb 0.5 Mg/2 Ml Amp INHALATION Not Given Q12HRT [facility] Enoxaparin Sodium 40 mg 07/14/23 09:00 07/25/23 09:29 Enoxaparin 40 Mg/0.4 Ml Syringe SUB-Q 40 mg DAILY ERIN Administration Ipratropium [place] 0.5 mg 07/10/23 14:00 07/25/23 13:17 Ipratropium Br 0.02% Inh Soln 0.5 Mg/2.5 Ml Vial INHALATION 0.5 mg Q6HRT ERIN Administration Miscellaneous Information 1 each 07/24/23 11:35 07/24/23 16:59 Morphine Needs To Be Renewed Or It Will Automatically Discontinue. XX 08/23/23 11:34 Not Given CLARIFY ERIN Ondansetron HCl 4 mg 07/07/23 23:29 07/21/23 13:14 Ondansetron Inj 4 Mg/2 Ml Vial IV PUSH 4 mg Q6H PRN Administration Nausea And Vomiting Pantoprazole Sodium 40 mg 07/14/23 14:00 07/25/23 09:29 Pantoprazole Sodium Iv 40 Mg Vial IV PUSH 40 mg QAM ERIN Administration Silicone 1 each 07/20/23 09:00 07/23/23 09:04 Silicon, Colloid Drsg (Mepilex Lite 6x6) TOPICAL 1 each
[2023-07-25] MEDS: FAMOTIDINE 20 MG TABLET PO (20:09)
[2023-07-26] VITALS (8 sets, daily range): BP systolic 120–142; BP diastolic 63–76; PULSE 86–98; RESP 16–18; TEMP 36.8–37.2; O2SAT 93–98
[2023-07-26 05:44] LABS: Basophils Percent Auto 0.1 % (0.2-1.2); Eosinophils Percent Auto 0.3 % (0-4.4); Hemoglobin 9.3 g/dL (12.0-15.0); Immature Granulocyte Absolute 0.05 K/mm3 (0.00-0.031); Immature Granulocyte Percent A 0.4 % (0-0.5); Lymphocytes Absolute Auto 1.35 K/mm3 (0.9-3.2); Lymphocytes Percent Auto 9.9 % (18.3-44.2); Mean Corpuscular HGB Conc 32.1 g/dl (32-36); Mean Corpuscular Hemoglobin 30.3 pg (26-34); Mean Corpuscular Volume 94.5 fl (80-100); Mean Platelet Volume 10.5 fl (7.4-10.4); Monocytes Absolute Auto 0.8 K/mm3 (0.1-0.6); Monocytes Percent Auto 5.7 % (2.6-8.5); Neutrophils Absolute Auto 11.4 K/mm3 (1.3-6.7); Neutrophils Percent Auto 83.6 % (45.5-73.1); Platelet Count Result 280 k/mm3 (150-375); Red Blood Count 3.07 M/mm3 (4.2-5.4); Red Cell Distribution Width 14.9 % (11.5-14.5); White Blood Count 13.6 K/mm3 (4.5-10.0)
[2023-07-26] MEDS: CENTRAL LINE FLUSH 20 ML IV PUSH (05:48)
[2023-07-26] MEDS: CENTRAL LINE FLUSH 10 ML IV PUSH ×3 (05:48→20:32)
[2023-07-26 05:53] LABS: Anion Gap 5 mmol/L (8-16); Blood Urea Nitrogen 11 mg/dL (7-17); Calcium 8.3 mg/dL (8.4-10.2); Carbon Dioxide 22 mmol/L (22-30); Chloride 107 mmol/L (98-107); Estimated CRCL calculation 53 ml/min; Estimated Glomerular Filt Rate > 60; Glucose 122 mg/dL (65-110); Magnesium 1.9 mg/dL (1.6-2.3); Potassium 3.5 mmol/L (3.4-5.0); Sodium 134 mmol/L (137-145)
[2023-07-26] MEDS: ENOXAPARIN 40 MG/0.4 ML SYRINGE SUB-Q (08:31)
[2023-07-26] MEDS: FAMOTIDINE 20 MG TABLET PO ×2 (08:32→20:32)
[2023-07-26] MEDS: SILVERGEL (ELTA) 45 ML 1 APPLIC TOPICAL (08:33)
[2023-07-26] MEDS: ALBUTEROL SULFATE NEB 2.5 MG/3 ML INH INHALATION ×2 (08:50→13:53)
[2023-07-26] MEDS: IPRATROPIUM BR 0.02% INH SOLN 0.5 MG/2.5 ML VIAL INHALATION ×2 (08:50→13:53)
[2023-07-26] MEDS: BUDESONIDE RESPULE NEB 0.5 MG/2 ML AMP INHALATION (08:50)
--- NOTE | 2023-07-26 11:48 | PM.IMPN ---
Progress Note: A&P Assessment and Plan (1) Acute respiratory failure: Code(s): J96.00 - Acute respiratory failure, unspecified whether with hypoxia or hypercapnia Status: Acute Assessment and Plan: Patient does have history of COPD but appears to be having multifactorial acute respiratory failure secondary to pneumonia. Postop patient was on BiPAP and was then transitioned to Airvo. She initially tolerated Airvo for 24 hours but then deteriorated requiring intubation on 07/15. Post intubation patient remained hypoxic and had to be sedated paralyzed and placed in prone position CTA lung 1. No pulmonary embolus identified. 2. Airspace opacities of the lower lobes and lingula, left greater than right, consistent with pneumonia and atelectasis. 3. Persistent intraperitoneal fluid in the bilateral pericolic gutters and pelvis, postoperative versus abscess. Extubated on 07/20 Continue Zosyn Status post Flagyl and vancomycin since cultures and MRSA screening has been negative (07/20) Continue bronchodilators Patient diuresed well with Diamox Currently on room air Chest x-ray with bibasilar congestion. Received Lasix 07/24 Stop Diamox, continue Lasix (2) COPD (chronic obstructive pulmonary disease): Qualifiers: COPD type: unspecified COPD Qualified Code(s): J44.9 - Chronic obstructive pulmonary disease, unspecified Code(s): J44.9 - Chronic obstructive pulmonary disease, unspecified Status: Acute Assessment and Plan: See above (3) Pneumonia: Code(s): J18.9 - Pneumonia, unspecified organism Status: Acute Assessment and Plan: See above (4) Perforation of sigmoid colon due to diverticulitis: Code(s): K57.20 - Diverticulitis of large intestine with perforation and abscess without bleeding Status: Acute Assessment and Plan: Status post exploratory laparotomy drainage of abscess and colostomy Ostomy management per general surgery Patient did pass her bedside swallow evaluation, speech therapy recommended Minced and moist was regular liquids, started on heart healthy diet (5) Intra-abdominal abscess: Code(s): K65.1 - Peritoneal abscess Status: Acute Assessment and Plan: Discussed with general surgery. Surgeon believes the fluid in the abdomen is from the washout and third-spacing. This her disease worsening if continues to worsen may need to scan of again (6) Left hip pain: Code(s): M25.552 - Pain in left hip Status: Acute Assessment and Plan: Patient has chronic left hip pain. 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 Hypernatremia: Improved today encourage free water intake (8) Shock: Code(s): R57.9 - Shock, unspecified Status: Acute Assessment and Plan: RESOLVED Post intubation patient became hypotensive and vasopressor started. This is likely multifactorial secondary to sepsis, positive pressure ventilation and sedation. Lactic acid level was normal and she has been afebrile. Vancomycin was added to the antibiotic coverage Off all IV fluids Vasopressors have been weaned off. Monitor and continue Levophed titration to maintain mean arterial pressure Off hydrocortisone and albumin (9) Sepsis: Code(s): A41.9 - Sepsis, unspecified organism Status: Acute Assessment and Plan: WBC have improved overall Afebrile Hemodynamics improved Antibiotics as above Cultures negative as of now Plan DVT prophylaxis -Lovenox Stress ulcer prophylaxis -Protonix Nutrition -will start heart healthy diet, minced and moist with regular liquids as recommended by speech therapy Activity: Up in chair, PT/OT have been ordered Code Status - Full Code Subjec
[2023-07-26] MEDS: FUROSEMIDE 40 MG TABLET PO (12:35)
--- NOTE | 2023-07-26 13:29 | PM.PNGS ---
Progress Note: A&P Assessment and Plan (1) Perforation of sigmoid colon due to diverticulitis: Code(s): K57.20 - Diverticulitis of large intestine with perforation and abscess without bleeding Status: Acute Assessment and Plan: Healing well surgically after severe intra-abdominal infection and fecal peritonitis. Colostomy is working well and wound is healing nicely. Will advance to regular diet. Patient is only eating fair but hopefully her appetite will improve with time. Home when medical problems are satisfactory for discharge. Subjective Subjective Date/Time Seen: 07/26/23 13:29 Patient reports: no new complaints, feels better, tolerating a regular diet (Low-fiber diet, not eating very much.), bowel movement (Stoma working well) and afebrile Exam Const: General: comfortable, alert and awake GI: Inspection: non-distended, incision (Dry and healing well) and other (Stoma pink and functioning well) GI Palp: Yes Soft to palpation, No Tenderness to palpation present (GI), No Guarding due to palpation present (GI), No Hernia present and No Palpable mass present Objective Data Vital Signs Vital Signs: Vital Signs - 24 hr 07/25/23 13:30 07/25/23 13:59 07/25/23 20:26 Temperature 36.8 C 37.1 C Pulse Rate 92 94 94 Respiratory Rate 18 20 16 Blood Pressure 135/68 142/75 H Pulse Oximetry 97 94 Oxygen Delivery 07/26/23 03:40 07/26/23 08:50 07/26/23 08:54 Temperature 37.2 C Pulse Rate 86 88 88 Respiratory Rate 16 18 18 Blood Pressure 142/76 H Pulse Oximetry 95 96 Oxygen Delivery Room Air 07/26/23 09:05 Temperature Pulse Rate 87 Respiratory Rate 18 Blood Pressure Pulse Oximetry Oxygen Delivery Intake/Output Intake/Output: Intake & Output 07/23/23 07/24/23 07/25/23 07/26/23 23:59 23:59 23:59 23:59 Intake Total 1257 960 410 290 Output Total 2850 1800 200 400 Balance -2303 -520 210 -110 Meds/Results Medications: Active Medications Generic Name Dose Route Start Last Admin Trade Name Freq PRN Reason Stop Dose Admin Acetaminophen 500 mg 07/25/23 16:16 Acetaminophen 500 Mg Tablet PO Q6H PRN Mild Pain (1-3) or Fever Hydrocodone Bitart/Acetaminophen 1 tab 07/25/23 16:16 Hydrocodone/Acetaminophen (*Crx) 5-325 Mg Tablet PO Q4H PRN Pain Rated 4-6 Albuterol 2 puff 07/07/23 23:26 07/08/23 11:51 Albuterol Sulfate (*Sp) Aerosol 1 Puff INHALATION 2 puff BID PRN Administration Shortness Of Breath Albuterol 2.5 mg 07/10/23 14:00 07/26/23 08:50 Albuterol Sulfate Neb 2.5 Mg/3 Ml Inh INHALATION 2.5 mg Q6HRT ERIN Administration Budesonide 0.5 mg 07/10/23 20:00 07/26/23 08:50 Budesonide Respule Neb 0.5 Mg/2 Ml Amp INHALATION 0.5 mg Q12HRT ERIN Administration Enoxaparin Sodium 40 mg 07/14/23 09:00 07/26/23 08:31 Enoxaparin 40 Mg/0.4 Ml Syringe SUB-Q 40 mg DAILY ERIN Administration Famotidine 20 mg 07/25/23 21:00 07/26/23 08:32 Famotidine 20 Mg Tablet PO 20 mg Q12HR ERIN Administration Furosemide 40 mg 07/27/23 09:00 Furosemide 40 Mg Tablet PO DAILY ERIN Ipratropium [place] 0.5 mg 07/10/23 14:00 07/26/23 08:50 Ipratropium Br 0.02% Inh Soln 0.5 Mg/2.5 Ml Vial INHALATION 0.5 mg Q6HRT ERIN Administration Morphine Sulfate 2 mg 07/25/23 16:16 Morphine Sulfate (*Crx) 2 Mg/Ml Inj IV PUSH Q2H PRN Pain Rated 7-10 Ondansetron HCl 4 mg 07/07/23 23:29 07/21/23 13:14 Ondansetron Inj 4 Mg/2 Ml Vial IV PUSH 4 mg Q6H PRN Administration Nausea And Vomiting Silver Nitrate 1 applic 07/27/23 09:00 Silvergel (Elta) 45 Ml TOPICAL DAILY ERIN Sodium Chloride 10 ml 07/14/23 14:00 07/26/23 12:35 Central Line Flush IV PUSH 10 ml Q8HR ERIN Administration Sodium Chloride 10 ml 07/14/23 10:30 Central Line Flush IV PUSH PRN PRN with TPN bag changes Sodium Chloride 20 ml 07/14/23 10:30 07/26/23 05:48 Central Line F
[2023-07-26] MEDS: ACETAMINOPHEN 500 MG TABLET PO (16:57)
[2023-07-26] MEDS: HYDROcodone/acetaminophen (*CRX) 5-325 MG TABLET 1 TAB PO (18:54)
--- NOTE | 2023-07-26 20:02 | PCRCNOTE ---
Pt refused Neb treatment at this time
[2023-07-27] VITALS (12 sets, daily range): BP systolic 119–131; BP diastolic 63–67; PULSE 86–109; RESP 18–20; TEMP 36.8–37.3; O2SAT 92–96
[2023-07-27] MEDS: ALBUTEROL SULFATE NEB 2.5 MG/3 ML INH INHALATION ×4 (01:26→20:30)
[2023-07-27] MEDS: IPRATROPIUM BR 0.02% INH SOLN 0.5 MG/2.5 ML VIAL INHALATION ×4 (01:26→20:30)
[2023-07-27 05:50] LABS: Basophils Percent Auto 0.3 % (0.2-1.2); Eosinophils Absolute Auto 0.1 K/mm3 (0-0.3); Eosinophils Percent Auto 0.7 % (0-4.4); Hematocrit 26.8 % (37.0-47.0); Hemoglobin 8.6 g/dL (12.0-15.0); Immature Granulocyte Absolute 0.04 K/mm3 (0.00-0.031); Immature Granulocyte Percent A 0.3 % (0-0.5); Lymphocytes Absolute Auto 1.86 K/mm3 (0.9-3.2); Lymphocytes Percent Auto 15.8 % (18.3-44.2); Mean Corpuscular HGB Conc 32.1 g/dl (32-36); Mean Corpuscular Hemoglobin 30.5 pg (26-34); Mean Platelet Volume 11.1 fl (7.4-10.4); Monocytes Absolute Auto 0.7 K/mm3 (0.1-0.6); Neutrophils Absolute Auto 9.1 K/mm3 (1.3-6.7); Neutrophils Percent Auto 76.9 % (45.5-73.1); Platelet Count Result 286 k/mm3 (150-375); Red Blood Count 2.82 M/mm3 (4.2-5.4); White Blood Count 11.8 K/mm3 (4.5-10.0)
[2023-07-27 06:00] LABS: Alanine Aminotransferase 24 U/L (6-35); Alkaline Phosphatase 80 U/L (38-126); Anion Gap 5 mmol/L (8-16); Aspartate Amino Transferase 34 U/L (14-36); Bilirubin,Total 0.5 mg/dL (0.2-1.3); Blood Urea Nitrogen 9 mg/dL (7-17); Calcium 8.3 mg/dL (8.4-10.2); Carbon Dioxide 25 mmol/L (22-30); Chloride 104 mmol/L (98-107); Estimated CRCL calculation 53 ml/min; Estimated Glomerular Filt Rate > 60; Glucose 105 mg/dL (65-110); Magnesium 1.9 mg/dL (1.6-2.3); Potassium 3.1 mmol/L (3.4-5.0); Sodium 134 mmol/L (137-145)
[2023-07-27] MEDS: CENTRAL LINE FLUSH 10 ML IV PUSH ×3 (06:03→20:15)
[2023-07-27] MEDS: CENTRAL LINE FLUSH 20 ML IV PUSH (06:04)
[2023-07-27] MEDS: BUDESONIDE RESPULE NEB 0.5 MG/2 ML AMP INHALATION ×2 (07:41→20:30)
[2023-07-27] MEDS: ENOXAPARIN 40 MG/0.4 ML SYRINGE SUB-Q (09:20)
[2023-07-27] MEDS: FUROSEMIDE 40 MG TABLET PO (09:20)
[2023-07-27] MEDS: POTASSIUM CHLORIDE 20 MEQ ER TABLET 40 MEQ PO (09:20)
[2023-07-27] MEDS: FAMOTIDINE 20 MG TABLET PO ×2 (09:20→20:15)
[2023-07-27] MEDS: SILVERGEL (ELTA) 45 ML 1 APPLIC TOPICAL (09:20)
--- NOTE | 2023-07-27 13:29 | PM.PNGS ---
Progress Note: A&P Assessment and Plan (1) Perforation of sigmoid colon due to diverticulitis: Code(s): K57.20 - Diverticulitis of large intestine with perforation and abscess without bleeding Status: Acute Assessment and Plan: OK to discharge from surgical standpoint Will have aleida removed today Continue Ostomy care Follow up in office in 2 weeks Subjective Subjective Date/Time Seen: 07/27/23 13:29 Interval history: Tolerating diet, no fevers, no abdominal pain Exam GI: Inspection: non-distended, incision (intact with aleida, no drainage.) and other (ostomy pink and functioning) Auscultation: normal bowel sounds Objective Data Vital Signs Vital Signs: Vital Signs - 24 hr 07/26/23 13:53 07/26/23 14:02 07/26/23 15:47 Temperature 36.9 C Pulse Rate 86 92 97 Respiratory Rate 18 18 16 Blood Pressure 125/66 Pulse Oximetry 98 Oxygen Delivery 07/26/23 20:33 07/27/23 01:28 07/27/23 01:29 Temperature 36.8 C Pulse Rate 98 88 86 Respiratory Rate 16 18 18 Blood Pressure 120/63 Pulse Oximetry 93 95 Oxygen Delivery Room Air 07/27/23 01:34 07/27/23 07:42 07/27/23 07:42 Temperature Pulse Rate 90 91 Respiratory Rate 18 18 Blood Pressure Pulse Oximetry 93 Oxygen Delivery Room Air 07/27/23 07:56 Temperature Pulse Rate 94 Respiratory Rate 18 Blood Pressure Pulse Oximetry Oxygen Delivery Intake/Output Intake/Output: Intake & Output 07/24/23 07/25/23 07/26/23 07/27/23 23:59 23:59 23:59 23:59 Intake Total 960 410 770 240 Output Total 1800 200 650 100 Balance -840 210 120 140 Meds/Results Medications: Active Medications Generic Name Dose Route Start Last Admin Trade Name Freq PRN Reason Stop Dose Admin Acetaminophen 500 mg 07/25/23 16:16 07/26/23 16:57 Acetaminophen 500 Mg Tablet PO 500 mg Q6H PRN Administration Mild Pain (1-3) or Fever Hydrocodone Bitart/Acetaminophen 1 tab 07/25/23 16:16 07/26/23 18:54 Hydrocodone/Acetaminophen (*Crx) 5-325 Mg Tablet PO 1 tab Q4H PRN Administration Pain Rated 4-6 Albuterol 2 puff 07/07/23 23:26 07/08/23 11:51 Albuterol Sulfate (*Sp) Aerosol 1 Puff INHALATION 2 puff BID PRN Administration Shortness Of Breath Albuterol 2.5 mg 07/10/23 14:00 07/27/23 07:42 Albuterol Sulfate Neb 2.5 Mg/3 Ml Inh INHALATION 2.5 mg Q6HRT ERIN Administration Budesonide 0.5 mg 07/10/23 20:00 07/27/23 07:41 Budesonide Respule Neb 0.5 Mg/2 Ml Amp INHALATION 0.5 mg Q12HRT ERIN Administration Enoxaparin Sodium 40 mg 07/14/23 09:00 07/27/23 09:20 Enoxaparin 40 Mg/0.4 Ml Syringe SUB-Q 40 mg DAILY ERIN Administration Famotidine 20 mg 07/25/23 21:00 07/27/23 09:20 Famotidine 20 Mg Tablet PO 20 mg Q12HR ERIN Administration Furosemide 40 mg 07/27/23 09:00 07/27/23 09:20 Furosemide 40 Mg Tablet PO 40 mg DAILY ERIN Administration Ipratropium [place] 0.5 mg 07/10/23 14:00 07/27/23 07:41 Ipratropium Br 0.02% Inh Soln 0.5 Mg/2.5 Ml Vial INHALATION 0.5 mg Q6HRT ERIN Administration Morphine Sulfate 2 mg 07/25/23 16:16 Morphine Sulfate (*Crx) 2 Mg/Ml Inj IV PUSH Q2H PRN Pain Rated 7-10 Ondansetron HCl 4 mg 07/07/23 23:29 07/21/23 13:14 Ondansetron Inj 4 Mg/2 Ml Vial IV PUSH 4 mg Q6H PRN Administration Nausea And Vomiting Silver Nitrate 1 applic 07/27/23 09:00 07/27/23 09:20 Silvergel ([place]ta) 45 Ml TOPICAL 1 applic DAILY ERIN Administration Sodium Chloride 10 ml 07/14/23 14:00 07/27/23 12:45 Central Line Flush IV PUSH 10 ml Q8HR ERIN Administration Sodium Chloride 10 ml 07/14/23 10:30 Central Line Flush IV PUSH PRN PRN with TPN bag changes Sodium Chloride 20 ml 07/14/23 10:30 07/27/23 06:04 Central Line Flush IV PUSH 20 ml PRN PRN Administration after blood draws Radiology Results: ITS Impressions Chest CTA 07/10/23 13:58 IMP
--- NOTE | 2023-07-27 17:53 | P.PNIM_ITS ---
Progress Note: A&P Assessment and Plan (1) Acute respiratory failure: Code(s): J96.00 - Acute respiratory failure, unspecified whether with hypoxia or hypercapnia Status: Acute Assessment and Plan: Patient does have history of COPD but appears to be having multifactorial acute respiratory failure secondary to pneumonia. Postop patient was on BiPAP and was then transitioned to Airvo. She initially tolerated Airvo for 24 hours but then deteriorated requiring intubation on 07/15. Post intubation patient remained hypoxic and had to be sedated paralyzed and placed in prone position CTA lung 1. No pulmonary embolus identified. 2. Airspace opacities of the lower lobes and lingula, left greater than right, consistent with pneumonia and atelectasis. 3. Persistent intraperitoneal fluid in the bilateral pericolic gutters and pelvis, postoperative versus abscess. Extubated on 07/20 Continue Zosyn Status post Flagyl and vancomycin since cultures and MRSA screening has been negative (07/20) Continue bronchodilators Patient diuresed well with Diamox Currently on room air Chest x-ray with bibasilar congestion. Received Lasix 07/24 Stop Diamox, continue Lasix with potassium supplement (2) COPD (chronic obstructive pulmonary disease): Qualifiers: COPD type: unspecified COPD Qualified Code(s): J44.9 - Chronic obstructive pulmonary disease, unspecified Code(s): J44.9 - Chronic obstructive pulmonary disease, unspecified Status: Acute Assessment and Plan: See above (3) Pneumonia: Code(s): J18.9 - Pneumonia, unspecified organism Status: Acute Assessment and Plan: See above (4) Perforation of sigmoid colon due to diverticulitis: Code(s): K57.20 - Diverticulitis of large intestine with perforation and abscess without bleeding Status: Acute Assessment and Plan: Status post exploratory laparotomy drainage of abscess and colostomy Ostomy management per general surgery Patient did pass her bedside swallow evaluation, speech therapy recommended Minced and moist was regular liquids, started on heart healthy diet (5) Intra-abdominal abscess: Code(s): K65.1 - Peritoneal abscess Status: Acute Assessment and Plan: Discussed with general surgery. Surgeon believes the fluid in the abdomen is from the washout and third-spacing. This her disease worsening if continues to worsen may need to scan of again (6) Left hip pain: Code(s): M25.552 - Pain in left hip Status: Acute Assessment and Plan: Patient has chronic left hip pain. 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 Hypernatremia: Improved today encourage free water intake (8) Shock: Code(s): R57.9 - Shock, unspecified Status: Acute Assessment and Plan: RESOLVED Post intubation patient became hypotensive and vasopressor started. This is likely multifactorial secondary to sepsis, positive pressure ventilation and sedation. Lactic acid level was normal and she has been afebrile. Vancomycin was added to the antibiotic coverage Off all IV fluids Vasopressors have been weaned off. Monitor and continue Levophed titration to maintain mean arterial pressure Off hydrocortisone and albumin (9) Sepsis: Code(s): A41.9 - Sepsis, unspecified organism
[2023-07-28 04:16] VITALS: BP 128/64; PULSE 100; RESP 18; TEMP 36.9; O2SAT 93
[2023-07-28 05:06] LABS: Basophils Percent Auto 0.3 % (0.2-1.2); Eosinophils Absolute Auto 0.1 K/mm3 (0-0.3); Eosinophils Percent Auto 1.5 % (0-4.4); Hematocrit 25.5 % (37.0-47.0); Hemoglobin 8.2 g/dL (12.0-15.0); Immature Granulocyte Absolute 0.05 K/mm3 (0.00-0.031); Immature Granulocyte Percent A 0.5 % (0-0.5); Lymphocytes Absolute Auto 1.58 K/mm3 (0.9-3.2); Lymphocytes Percent Auto 16.5 % (18.3-44.2); Mean Corpuscular HGB Conc 32.2 g/dl (32-36); Mean Corpuscular Hemoglobin 30.1 pg (26-34); Mean Corpuscular Volume 93.8 fl (80-100); Mean Platelet Volume 10.1 fl (7.4-10.4); Monocytes Absolute Auto 0.7 K/mm3 (0.1-0.6); Monocytes Percent Auto 7.1 % (2.6-8.5); Neutrophils Absolute Auto 7.1 K/mm3 (1.3-6.7); Neutrophils Percent Auto 74.1 % (45.5-73.1); Platelet Count Result 188 k/mm3 (150-375); Red Blood Count 2.72 M/mm3 (4.2-5.4); Red Cell Distribution Width 15.1 % (11.5-14.5); White Blood Count 9.6 K/mm3 (4.5-10.0)
[2023-07-28] MEDS: CENTRAL LINE FLUSH 20 ML IV PUSH (05:10)
[2023-07-28] MEDS: CENTRAL LINE FLUSH 10 ML IV PUSH (05:10)
[2023-07-28 05:22] LABS: Alanine Aminotransferase 27 U/L (6-35); Albumin Level 3.1 g/dL (3.5-5.1); Alkaline Phosphatase 89 U/L (38-126); Anion Gap 7 mmol/L (8-16); Aspartate Amino Transferase 37 U/L (14-36); Bilirubin,Total 0.5 mg/dL (0.2-1.3); Blood Urea Nitrogen 7 mg/dL (7-17); Calcium 8.3 mg/dL (8.4-10.2); Carbon Dioxide 25 mmol/L (22-30); Chloride 102 mmol/L (98-107); Estimated CRCL calculation 53 ml/min; Estimated Glomerular Filt Rate > 60; Glucose 113 mg/dL (65-110); Magnesium 1.8 mg/dL (1.6-2.3); Potassium 3.7 mmol/L (3.4-5.0); Sodium 134 mmol/L (137-145)
[2023-07-28 08:00] VITALS: BP 111/63; PULSE 103; RESP 18; TEMP 36.2; O2SAT 94
--- NOTE | 2023-07-28 08:42 | PCNFU ---
Nutrition Follow-Up Complete: Inadequate energy intake related to NPO status as evidenced by current diet orders Meet estimated needs - Progressing toward goal Goal: Pt current nutrition is Regular diet. Nutrition recommendation: Ensure Enlive BID for additional 350 kcal and 20 g protein each Last recorded weight is 65.7 kg. Bowel Motility: Last BM +1 07/26/23 Labs Reviewed: Hgb 8.2, Hct 25.5, Alb 3.1, NA 134 Meds Noted: Zofran, lovenox, Lasix Skin: Abdominal incision Additional Notes: Pt says appetite improving, although not great. Intakes 50-80%recorded. 25-30% breakfast observed. Agreeable to try Ensure BID Monitor intakes,, weights, labs, supplement tolerance, plan of care. Follow up every 5 days
[2023-07-28] MEDS: BUDESONIDE RESPULE NEB 0.5 MG/2 ML AMP INHALATION (08:52)
[2023-07-28] MEDS: ALBUTEROL SULFATE NEB 2.5 MG/3 ML INH INHALATION (08:52)
[2023-07-28] MEDS: IPRATROPIUM BR 0.02% INH SOLN 0.5 MG/2.5 ML VIAL INHALATION (08:52)
[2023-07-28 08:53] VITALS: PULSE 102; RESP 20
[2023-07-28 09:08] VITALS: PULSE 105; RESP 20
[2023-07-28] MEDS: ENOXAPARIN 40 MG/0.4 ML SYRINGE SUB-Q (10:30)
[2023-07-28] MEDS: SILVERGEL (ELTA) 45 ML 1 APPLIC TOPICAL (10:31)
[2023-07-28] MEDS: FAMOTIDINE 20 MG TABLET PO (10:35)
--- NOTE | 2023-07-28 10:53 | PM.DS ---
DS: Admitting Diagnosis Discharge Date 07/28/2023 Admitting Diagnosis Abdominal pain DS: Discharge Diagnosis Discharge Diagnosis (1) Acute respiratory failure: Code(s): J96.00 - Acute respiratory failure, unspecified whether with hypoxia or hypercapnia Status: Acute (2) COPD (chronic obstructive pulmonary disease): Qualifiers: COPD type: unspecified COPD Qualified Code(s): J44.9 - Chronic obstructive pulmonary disease, unspecified Code(s): J44.9 - Chronic obstructive pulmonary disease, unspecified Status: Acute (3) Pneumonia: Code(s): J18.9 - Pneumonia, unspecified organism Status: Acute (4) Perforation of sigmoid colon due to diverticulitis: Code(s): K57.20 - Diverticulitis of large intestine with perforation and abscess without bleeding Status: Acute (5) Intra-abdominal abscess: Code(s): K65.1 - Peritoneal abscess Status: Acute (6) Left hip pain: Code(s): M25.552 - Pain in left hip Status: Acute (7) Electrolyte abnormality: Code(s): E87.8 - Other disorders of electrolyte and fluid balance, not elsewhere classified Status: Acute (8) Shock: Code(s): R57.9 - Shock, unspecified Status: Acute (9) Sepsis: Code(s): A41.9 - Sepsis, unspecified organism Status: Acute DS: Summary Hospital Course Hospital Course: # acute respiratory failure with hypoxia: History of COPD but multifactorial secondary to pneumonia and congestion. Postoperatively patient was placed on BiPAP and was transitioned to Airvo. She was subsequently required intubation on 07/15/2023. Post intubation patient remained hypoxic eating to be sedated and paralyzed. CT of the lung showed no PE. Airspace opacities in the lower lung left greater than right consistent with pneumonia and atelectasis she was treated with IV antibiotics she was subsequently extubated on 07/20/2023. Continue bronchodilators and diuresis as tolerated. Repeat chest x-ray with bibasilar congestion oral Lasix for a week more. Further diuresis as needed # COPD: Bronchodilators as ordered # pneumonia: Finish all antibiotics # perforation of sigmoid colon: Status post exploratory laparotomy drainage of abscess and colostomy Ostomy management per General surgery Rody has been removed on 07/27/2023. Follow-up with general surgery as scheduled # intra-abdominal abscess: Status post I and D # left hip pain chronic CT scan showed old right obturator ring fracture # hypokalemia: Potassium replacement due to diuretics # shock post intubation needing vasopressor this has resolved now. Time Spent with Patient Time attestation: Total time spent providing and/or coordinating discharge services: 40 minutes Exam Narrative: General: Pleasant female, in no acute distress Lungs/Chest: Trachea central, Coarse BS B/L, No crackles or wheezing. Cardiac: RRR. Normal S1 S2. No murmurs Circulation: Pedal pulses are intact and symmetrical. Abdomen: Decreased bowel sounds. Obese. Soft. NT. ND. Colostomy with brownish stool output, midline incision with Steri-Strip Extremities: No clubbing, cyanosis or edema. Warm Neurologic: Patient is awake, alert, oriented, follows simple commands in all extremities and answers to questions appropriately DS: Data Data Completed and Pending Completed studies during hospitalization: Pending at discharge 07/13/23 12:32 Surgical [PTH] Routine Labs on day of discharge: Labs from last 24 hours 07/28/23 05:00 WBC 9.6 RBC 2.72 L Hgb 8.2 L Hct 25.5 L MCV 93.8 MCH 30.1 MCHC 32.2 RDW 15.1 H Plt Count 188 MPV 10.1 Immature Gran % (Auto) 0.5 Neut % (Auto) 74.1 H Lymph % (Auto) 16.5 L [place] % (Auto) 7.1 Eos % (Auto) 1.5 Baso % (Auto) 0.3 Lymph # (Auto) 1.58 [place] # (Auto) 0.7 H Eos # (Auto) 0.1 Baso # (Auto) 0.0 Abs Immat Gran (auto) 0.05 H Absolute Neuts (auto) 7.1 H Absolute Nucleat
[2023-07-28] MEDS: FUROSEMIDE 40 MG TABLET PO (12:09)
[2023-07-28] MEDS: HYDROcodone/acetaminophen (*CRX) 5-325 MG TABLET 1 TAB PO (13:36)
== END 2023-07-28 15:45 | disposition home health service (06) | DRG 329 ==
LOC: ANH3MEDSUR 07-13 07:36 → ANHICU 07-13 16:16 → ANH2MED 07-23 22:37
PROVIDERS: Anesthesiology; Hospitalist; Internal Medicine; Nurse Practitioner Family; Student in an Organized Health Care Education/Training Program; Surgery; Admitting Provider Internal Medicine; PCP Family Medicine; Visit Provider Internal Medicine
PROC: 0DTN0ZZ Resection of Sigmoid Colon, Open Approach (ICD-10-PCS; CPT 44143; principal; 2023-07-13 12:00)
DX: K57.20 Diverticulitis of large intestine with perforation and abscess without bleeding (principal); K65.1 Peritoneal abscess; J95.821 Acute postprocedural respiratory failure; T81.12XA Postprocedural septic shock, initial encounter; A41.9 Sepsis, unspecified organism; J18.9 Pneumonia, unspecified organism; T81.44XA Sepsis following a procedure, initial encounter; J95.89 Other postprocedural complications and disorders of respiratory system, not elsewhere classified; I95.89 Other hypotension; J98.11 Atelectasis; J90 Pleural effusion, not elsewhere classified; E87.0 Hyperosmolality and hypernatremia; J44.9 Chronic obstructive pulmonary disease, unspecified; I10 Essential (primary) hypertension; F17.210 Nicotine dependence, cigarettes, uncomplicated; F41.9 Anxiety disorder, unspecified; E78.5 Hyperlipidemia, unspecified; G47.00 Insomnia, unspecified; K59.00 Constipation, unspecified; M25.552 Pain in left hip
CPT/HCPCS: 36415; 36569; 36600; 71045; 71275; 74176; 74177; 80048; 80053; 80202; 82375; 82805; 82948; 83050; 83605; 83735; 83880; 84100; 84466; 84478; 85025; 85027; 85610; 85730; 86850; 86900; 86901; 87040; 87070; 87081; 87205; 88309; 92610; 93005; 93970; 94002; 94003; 94640; 94667; 97110; 97116; 97161; 97165; 97530; 97535; A9270; C1729; C1765; C8929; C9113; G0378; G0379; J0330; J1100; J1120; J1170; J1200; J1650; J1720; J1836; J1940; J2250; J2270; J2371; J2405; J2543; J2704; J3010; J3370; J3475; J3480; J7030; J7040; J7050; J7060; J7070; J7120; P9047; Q9957; Q9967